=== PATIENT | female | born 1940 | race Caucasian/White ===

== ENCOUNTER 2018-06-29 15:11 | Inpatient (IN) | payer MEDICARE, SELFPAY ==
[2018-06-29] VITALS (7 sets, daily range): BP systolic 141–169; BP diastolic 79–106; PULSE 59–88; RESP 15–20; TEMP 36.5–37.2; O2SAT 92–93; BMI 28.3
--- NOTE | 2018-06-29 15:29 | RAD_ITS ---
STUDY: X-RAY CHEST REASON FOR EXAM: Female, 78 years old. Weakness TECHNIQUE: Single AP portable view of the chest. COMPARISON: None. FINDINGS: EKG leads overlie the chest There are interstitial fibrotic changes of the lungs. There is no demonstrated pleural abnormality. There is cardiomegaly. Normal mediastinum and andrew. Normal visualized pulmonary arteries. Normal visualized aortic arch and descending thoracic aorta. Normal visualized thoracic spine. Normal visualized ribs, clavicles, and shoulders. There is no demonstrated abnormality of the visualized soft tissue structures of the upper abdomen. RAD/Chest 1 View (Portable) IMPRESSION: No acute findings, cardiomegaly Electronically Signed: Miguel Mata MD at 16:07 EST , Service support ,
--- NOTE | 2018-06-29 15:29 | EKG12_ITS ---
Test Reason : WEAKNESS Blood Pressure : / mmHG Vent. Rate : 082 BPM Atrial Rate : 082 BPM P-R Int : 186 ms QRS Dur : 082 ms QT Int : 398 ms P-R-T Axes : 036 -12 024 degrees QTc Int : 464 ms Normal sinus rhythm Normal ECG Confirmed by JOSE OTTO, DWIGHT ([id number]), school photograph editor MANUEL MCALLISTER ([id number]) on 07/01/2018 8:57:20 AM Referred By: Radha Galvez Confirmed By:DWIGHT GARCIA MD
--- NOTE | 2018-06-29 15:29 | CT_ITS ---
STUDY: CT BRAIN WITHOUT CONTRAST REASON FOR EXAM: Female, 78 years old. Weakness and falls RADIATION DOSAGE (If Supplied By Facility): CTDIvol = ( 44.99 ) mGy, DLP = ( 745.49 ) mGycm TECHNIQUE: Transaxial CT imaging of the brain was performed without administration of intravenous contrast material. Individualized dose optimization techniques were used for this CT. COMPARISON: 11/29/2011 FINDINGS: Normal soft tissue structures. Normal calvarium. There is mild cerebral atrophy with widening of the extra-axial spaces and ventricular dilatation. There are areas of decreased attenuation within the white matter tracts of the supratentorial brain, consistent with microvascular disease changes. There are small punctate calcifications of the basal ganglia which are seen in the aging brain as a normal variant. Normal brainstem. Normal cerebellum. There is no intracranial hemorrhage. There are no findings of an acute ischemic infarction. Normal visualized paranasal sinuses. CT/Brain/Head without Contrast IMPRESSION: Chronic involutional changes of the brain. No acute hemorrhage Electronically Signed: Miguel Mata MD at 16:38 EST , Service support ,
[2018-06-29 15:39] LABS: Absolute Neutrophil Count 3.9 X10^3/uL (2.0-7.7); Basophil# 0.02 X10^3/uL; Basophil% 0.4 % (0-1); Eosinophil# 0.15 X10^3/uL; Eosinophils% 2.7 % (0-5); Hematocrit 38.1 % (37-47); Lymphocyte % 19.8 % (19-41); Mean Corp Hgb Conc 31.5 g/gl (32-36); Mean Corpuscular Hgb 28.4 pg (27.0-32.0); Mean Corpuscular Volume 90.1 fL (81-99); Mean Platelet Vol. 11.4 fl (6.2-12.0); Monocyte# 0.37 X10^3/uL; Monocyte% 6.7 % (0-10); Neutrophil # 3.91 X10^3/uL (2.7-7.7); Neutrophil % 70.2 % (47-70); Platelet Count 201 K/mm3 (150-450); RBC Distribution Width CV 14.7 % (11.6-14.6); RBC Distribution Width SD 48.2 fl (35.1-43.9); Red Blood Count 4.23 M/mm3 (4.2-5.4); White Blood Count 5.6 K/mm3 (4.4-11.0)
--- NOTE | 2018-06-29 15:39 | ED.DCSUM_ITS ---
- ER Visit Summary Date of Service: 06/29/18 Chief Complaint: I am falling all over the place History of Present Illness: The patient is a 78 F history of hypertension and MS. Patient states since the last 2 days she just felt off balance and has had trouble ambulating to the point where she is had some falls. She denies any significant injuries. She denies any head injury. She denies any LOC. She denies any severe headaches. States she feels dehydrated. She denies any nausea, vomiting or diarrhea. States that she is peeing more often. She denies any dysuria or gross hematuria. She denies any fever or melena. She denies any trouble using her arms and legs. Physical Examination: Well-appearing older female. No acute distress. Vital signs are stable and afebrile. Temperature 99 degrees orally. Pulse ox 90% on room air no hypoxia. HEENT exam dry mucous membranes. Otherwise unremarkable. Neck nontender no lymphadenopathy. Lungs clear to auscultation bilaterally. Heart regular rate and rhythm no murmur rate about 80. Abdomen is soft and nontender. Normal bowel sounds no peritoneal signs. Patient is moving all 4 extremities. Neurovascularly intact. Calves are nontender without edema or cords. Neurologically she is awake. She is alert. She follows commands. She answers questions. She has no slurred speech. No facial droop. 5 out of 5 motor manager packaging strength bilaterally. 5 out of 5 dorsi and plantar flexion. Fingertip to nose within normal limits. NIH score is 0. Test Results: Portable 1 view chest x-ray shows no acute abnormality read both by myself and the radiologist. EKG normal sinus rhythm rate of 80 with no acute abnormality and unchanged from prior EKG from 2012. CBC White count is 5. Hemoglobin 12. No bands. Electrolytes unremarkable normal BUN/creatinine and gap. UA is consistent with urinary tract infection with positive nitrates and 10-25 white cells with 3+ bacteria. For that a urine culture was sent and patient be started on IV Rocephin. Troponin was normal. Orthostatic vital signs were negative. Nurses attempted to walk the patient and she was unable to walk she was too weak. CAT scan of the brain is pending I reviewed it I do not see any acute obvious abnormality obviously are waiting for the radiologist interpretation. Emergency Department Course and Treatment: Older female with recent frequent falls. Other than clinically appearing somewhat dehydrated her exam is basically unremarkable lying in bed. She will be treated with a liter of normal saline. Treatment Plan: IV antibiotics and admission. I will discussed with the hospitalist. Disposition: admit Impression: Frequent falls UTI Unable to walk This note was generated with [employer] dictation software. It may contain incorrect words, spelling, and punctuation that were not noted in review of the chart prior to signing ED Disposition - Plan for ED Patient: Chief Complaint: Weakness Referrals: Maria M Sierra MD [Primary Care Provider] -
[2018-06-29 15:42] LABS: POSITIVE COUNT NO; POSITIVE DIFFERENTIAL NO; POSITIVE MORPHOLOGY NO
[2018-06-29 15:54] LABS: Mucous, Urine 0 SEEN /hpf (<or=2+); Red Blood Cells-Urine 0 SEEN /hpf (0-5); Squamous Epithelial Cells - UA 0 SEEN /hpf (5-10)
[2018-06-29 15:57] LABS: Color, Urine Yellow (Yellow); Glucose, Dipstick Normal (Normal); Ketone-Dipstick Negative (Negative); Leukocyte Esterase-Dipstick 500 /ul (Negative); Nitrite-Dipstick Positive (Negative); Occult Blood-Urine 10 /ul (Negative); Protein-Dipstick Negative (Negative); Specific Gravity, Urine 1.025 (1.002-1.030); Urine Bilirubin Dipstick Negative (Negative); Urine Clarity Sl. Cloudy (Clear); Urine Urobilinogen Normal (Normal)
[2018-06-29] MEDS: 0.9% Normal Saline 1,000 ML 1000 ML IV (16:00)
[2018-06-29 16:07] LABS: Anion Gap 9 (5-15); BUN 14 mg/dL (7-18); BUN/Creat Ratio 16.3 RATIO (10-20); Calcium,Total 8.6 mg/dL (8.5-10.1); Chloride 113 mmol/L (98-107); Creatinine, Serum 0.86 mg/dL (0.55-1.02); EST Glomerular Filtration Rate 68 mL/min (>60); Est Glom Filt Rate - Afr Amer 82 mL/min (>60); Estimated Creatinine Clearance 42.64 ml/min; Glucose 116 mg/dL (74-106); Potassium 3.6 mmol/L (3.5-5.1); Sodium Level 143 mmol/L (136-145)
[2018-06-29 16:14] LABS: White Blood Cells 10-25 SEEN /hpf (0-5)
[2018-06-29 16:15] LABS: Bacteria 3+ /hpf (None Seen)
--- NOTE | 2018-06-29 16:36 | ED.RN ---
SPOKE WITH PT DAUGHTER KADE AND GAVE HER AN UPDATE WITH APPROVAL FROM PT. [phone]
[2018-06-29] MEDS: Ceftriaxone 1 GM/50 ML BAG IV (16:39)
--- NOTE | 2018-06-29 17:30 | NURSING ---
PT HAD RN CALL SON ARMANI , THIS RN LEFT MESSAGE INSTRUCTING ARMANI TO CALL ER WHEN HE IS ABLE PER HIS MOTHER'S REQUEST.
[2018-06-29] MEDS: Aspirin 81 MG TAB.CHEW 324 MG PO (18:18)
--- NOTE | 2018-06-29 18:21 | HP.PCM_ITS ---
Problem List (1) COLLIN (obstructive sleep apnea) Status: Chronic Comment: on CPAP (2) Seizure disorder Status: Chronic (3) UTI (urinary tract infection) Status: Acute Qualifiers: Urinary tract infection type: acute cystitis (4) Ataxia Status: Acute (5) Diplopia Status: Acute (6) Chronic obstructive lung disease Status: Chronic (7) Dyslipidemia Status: Chronic (8) History of Clostridium difficile infection Status: Resolved (9) Hypertension Status: Chronic Qualifiers: Hypertension type: essential hypertension Qualified Code(s): I10 - Essential (primary) hypertension (10) Multiple sclerosis Status: Chronic Comment: has never required treatment (11) Migraines Status: Chronic History of Present Illness Date of Admission: 06/29/18 Chief Complaint: frequent falls and unsteady gait X 2 days The patient is a 78 year old F with a past medical history of hypertension, hyperlipidemia, multiple sclerosis (untreated), migraine cephalgia, COLLIN, seizure disorder and a heart MM who presented to the ED at [facility] on 06/29/2018 complaining of frequent falls due to unsteady gait over the past 48 hours associated with frequent urination. She tells me that suddenly on she could not maintain her balance and has been bumping into the ovalle and falling. Prior to she did not even use an AD. She has also had double vision since that started at the same time as the unsteady gait. She denies vertigo and has no RUFFIN, nausea or vomiting. No unilateral weakness or numbness. No trouble with speech and no trouble swallowing. She has had increased urination and denies dysuria, fever, chills, sweats. She denies any history of stroke in the past. She does have a history of seizures, migraines and MS per Dr. Silver. She has been told the MS is very mild and she has never been treated for MS. She is on Topimax. Vital signs of presentation to the emergency room were temperature 99, pulse rate 87, blood pressure 146/95, respiratory rate 20 and pulse ox was 92% on room air. Orthostatic blood pressures were negative for orthostatic hypotension. CBC was unremarkable. The sodium was 143 with a potassium of 3.6 and a chloride of 113. Serum bicarb was 21. BUN was 14 with a creatinine of 0.86. Random blood sugar was 116 and she denies any personal history of diabetes but there is an extensive history of diabetes in her family. Troponin was less than 0.016. UA showed 10-25 WBCs per high-power field with 3+ bacteria and positive nitrites. Urine specific gravity was 1.025. It was a catheterized specimen and it was sent for culture. Brain CT showed chronic involutional changes of the brain with no acute hemorrhage. AP chest showed no acute findings but the patient was markedly rotated to the right. EKG showed normal sinus rhythm with no suspicious ST or T wave changes. She was stood by Dr. Saez and he attempted to walk her after 1 liter of IV fluid but she was ataxic. She is being admitted to a monitored bed on PCU with ataxia and diplopia suspected to be due to CVA. Past Medical History Past Medical History (Chronic Problems): Chronic Problems COLLIN (obstructive sleep apnea) (Chronic) on CPAP Seizure disorder (Chronic) Migraines (Chronic) Multiple sclerosis (Chronic) has never required treatment Chronic obstructive lung disease (Chronic) Hypertension (Chronic) Dyslipidemia (Chronic) Allergies No Known Allergies Allergy (Verified 06/29/18 15:13) Home Medications: Ambulatory Orders Medication Instructions Recorded Atorvastatin Calcium [Lipitor] 40 mg PO QHS 06/29/18 Hydroxyzine HCl 25 mg PO BID PRN PRN 06/29/18 Loratadine 10 mg PO DAILY 06/29/18 Losartan Potassium 100 mg PO DAILY 06/29/18 Oxybutynin [Ditropan] 5 mg PO BID 06/29/18 Paroxetine HCl 40 mg PO DAILY 06/29/18 Topiramate [Topamax] 25 mg PO BID 06/29/18 Surgical History: noncontributory Psychiatric History: Depression Lives: Alone Smoking Status: Former smoker - she quit a few years ago. Started smoking at 12 YOA and has smoked up to 2 PPD in the past Tobacco Use: Non-smoker Alcohol: Rare Drugs: None - *Family History Maternal History Items: Diabetes, High Cholesterol, Hypertension Paternal History Items: No pertinent history Review of Systems Constitutional: Reports: Weakness. Denies: Chills, Fever, Night Sweats, Weight Change Eyes: Reports: Double vision, Vision Change - diplopia when both eyes open since HEENT: Reports: Visual Changes, - - very dry mouth. Denies: Difficulty Swallowing, Head Aches, Nasal Congestion, Sinus Congestion, Sinus Drainage, Sore Throat Cardiovascular: Denies: Chest Pain, Edema, Light Headedness, Orthopnea, Palpitations, Paroxysmal Noc. Dyspnea, Syncope Respiratory: Reports: Cough - dry. Denies: Shortness of Breath, Shortness of breath at rest, Sputum production Gastrointestinal: Denies: Abdominal Pain, Constipation, Diarrhea, Nausea, Vomiting Genitourinary: Reports: Frequency, Nocturia. Denies: Dysuria Gynecological: Denies: Breast symptoms, Vaginal bleeding, Vaginal discharge Musculoskeletal: Denies: Joint Pain, Joint Tenderness Skin: Reports: Dryness. Denies: Jaundice, Rash, Wounds Neurological: Reports: Balance problems, Double vision, Confusion, Seizures - she has a hx of seizures but has not had any for a long time. Denies: Change in Speech, Slurred speech, Difficulty swallowing, Focal weakness, Headaches, Numbness, Tingling Psychiatric: Denies: Anxiety, Depression, Homicidal Ideations, Suicidal Ideations Endocrine: Denies: Change in Body Habitus, Hx of Thyroiditis Hematologic/ Lymphatic: Denies: Easy Bruising, Easy Bleeding, Hx of blood clot VTE Information - Inpt Only VTE Present on Admission: No VTE Mechan Device Prophylaxis: SCD's, Knee High PRATIBHA Hose VTE Pharm Prophylaxis ordered?: Yes Patient Problems: Active and Suspected Problems UTI (urinary tract infection) (Acute) Ataxia (Acute) Diplopia (Acute) - Physical Exam General: Alert, Oriented x3, Cooperative, Well developed, Well nourished, - - having some trouble with short term memory and numbers per pt however, she is alert and oriented X 3 HEENT: Atraumatic, PERRLA, EOMI, Normocephalic Neck: Supple, No JVD, Negative Carotid Bruits Lungs: Clear to auscultation, No rhonchi, No wheeze, No rales, Diminished Cardiovascular: Regular rate, Regular Rhythm, Normal S1, Normal S2, Murmur - 2/6 SUDHAKAR at the second RICS, No rub noted, No Gallop Abdomen: Bowel Sounds Present, Soft, Non Tender, Non-Distended, - - No abdominal bruits Extremities: No clubbing, No cyanosis, No edema, Capillary Refill Less than 3 Seconds, Peripheral Pulses Normal - normal in the LE's however the radial pulses are diminished Skin: No rashes, No breakdown Musculoskeletal: No Tenderness to Palpation of Joints or Extremities, No Muscle Wasting Neurological: Cranial nerves II-XII grossly intact, Unsteady Gait Psych/Mental Status: Normal Affect, Appropriate Vital Signs Temp Pulse Resp BP Pulse Ox 99.0 F 73 15 169/93 H 93 06/29/18 15:13 06/29/18 17:33 06/29/18 17:33 06/29/18 17:33 06/29/18 17:33 Oxygen Delivery Method Room Air Weight: 164 lb 7.437 oz Body Mass Index (BMI) 30.0 Laboratory Tests Past 24 Hrs 06/29/18 06/29/18 06/29/18 15:20 15:20 15:50 WBC 5.6 RBC 4.23 Hgb 12.0 Hct 38.1 MCV 90.1 MCH 28.4 MCHC 31.5 L RDW 14.7 H RDW Differential 48.2 H Plt Count 201 MPV 11.4 Immature Gran % (Auto) 0.200 Neut % (Auto) 70.2 H Lymph % (Auto) 19.8 [place] % (Auto) 6.7 Eos % (Auto) 2.7 Baso % (Auto) 0.4 Absolute Neuts (auto) 3.9 Absolute Lymphs (auto) 1.10 Total Counted Not Reportable Sodium 143 Potassium 3.6 Chloride 113 H Carbon Dioxide 21.0 Anion Gap 9 BUN 14 Creatinine 0.86 Estim Creat Clear Calc 42.64 Est GFR (MDRD) Af Amer 82 Est GFR (MDRD) Non-Af 68 BUN/Creatinine Ratio 16.3 Glucose 116 H Calcium 8.6 Troponin I < 0.015 Urine Color Yellow Urine Clarity Sl. Cloudy Urine pH 5.0 Ur Specific [place] 1.025 Urine Protein Negative Urine Glucose (UA) Normal Urine Ketones Negative Urine Occult Blood 10 H Urine Nitrite Positive H Urine Bilirubin Negative Urine Urobilinogen Normal Ur Leukocyte Esterase 500 H Urine RBC 0 SEEN Urine WBC 10-25 SEEN Ur Squamous Epith Cells 0 SEEN Urine Bacteria 3+ Urine Mucus 0 SEEN Assessment/Plan All Active Problems UTI (urinary tract infection) (Acute) Ataxia (Acute) Diplopia (Acute) History of Clostridium difficile infection (Resolved) Impressions 1. sudden onset of double vision and gait instability on 06/27 - suspect ischemic CVA, could also be MS 2. UTI 3. HTN 4. HLD 5. seizure disorder 6. hx of MS - has never required tx 7. migraine cephalgia 8. COPD 9. Remote history of C. difficile infection Admit to a monitored bed on PCU Initiate Stroke protocol MRI of the head and MRA of the head and the neck. Neurology consult Antiplatelet therapy with aspirin [address], PT and OT consults Bedside swallow eval Hydrate Lipid profile in the AM EKG Echocardiogram Start Rocephin 1 g IV daily for urinary tract infection and await the results of the urine culture Recheck lab in the a.m. Code Visit Inpatient E&M: 65362 Init Hosp L3
--- NOTE | 2018-06-29 18:34 | ECHOD_ITS ---
Reason For Study: TIA/CVA Procedure This was a 2D Doppler, Color Flow transthoracic echocardiogram. The study was technically difficult. Diminished accoustic parasternal windows. Exam performed portable in patient room. Left Ventricle Normal LV size. Left ventricular systolic function is normal. The estimated ejection fraction is 65 %. Stage 1 diastolic dysfunction. No regional wall motion abnormalities noted. Atria Normal left atrium. Normal right atrium. Bubble contrast study negative for right to left interatrial shunt. Mitral Valve Normal mitral valve. Mild (1+) eccentric mitral valve insufficiency. Tricuspid Valve Normal tricuspid valve. Mild (1+) tricuspid valve insufficiency. Pulmonary artery systolic pressure is 35 mmHg. Pulmonic Valve Normal pulmonic valve. Great Vessels Mildly dilated aortic root. The pulmonary artery is normal size. Normal inferior vena cava. Pericardium/Pleural No pericardial effusion. Medication Performed a rapid injection of agitated mix of 9 cc saline and 1cc air to assess for atrial septal defect. MMode/2D Measurements & Calculations LVIDd: 4.9 cm IVSd: 0.91 cm Ao root diam: 4.0 cm LVIDs: 3.4 cm LVPWd: 0.95 cm RVDd: 3.2 cm FS: 30.8 % LAV(MOD-bp): 47.1 ml LA A4 area: 17.9 cm2 RA A4 area: 11.5 cm2 LAV(MOD-bp) Indexed: 26.8 ml/m2 LAV(MOD-sp2): 42.2 ml LAV(MOD-sp4): 49.1 ml Doppler Measurements & Calculations MV E max claudio: 82.2 cm/sec Lat Peak E' Claudio: 9.9 cm/sec Med Peak E' Claudio: 7.7 cm/sec MV A max claudio: 102.2 cm/sec E/E' lat: 8.3 E/E' med: 10.7 MV E/A: 0.80 Ao V2 max: 165.6 cm/sec AI max claudio: 465.3 cm/sec LV V1 max: 113.2 cm/sec Ao max P.0 mmHg AI max P.7 mmHg LV V1 max P.1 mmHg Ao V2 mean: 107.4 cm/sec LV V1 mean P.8 mmHg Ao mean P.2 mmHg AI dec slope: 242.5 cm/sec2 LV V1 mean: 79.1 cm/sec Ao V2 VTI: 34.5 cm AI P1/2t: 562.0 msec LV V1 VTI: 27.2 cm PA V2 max: 118.0 cm/sec TR max claudio: 278.6 cm/sec TR max P.0 mmHg Interpretation Summary Normal LV size. Left ventricular systolic function is normal. The estimated ejection fraction is 65 %. Stage 1 diastolic dysfunction. Bubble contrast study negative for right to left interatrial shunt. Mild (1+) tricuspid valve insufficiency. Ordering Physician: Gillian Galvez Referring Physician: Maria M Sierra Performed By: Meredith Burroughs, OCTAVIA, RVT
[2018-06-29 19:19] LABS: Thyroid Stim Hormone (TSH) 1.23 uIU/mL (0.358-3.74)
[2018-06-29] MEDS: 0.9% Normal Saline 1,000 ML 100 ML IV (20:00)
[2018-06-29] MEDS: Acetaminophen 325 MG Tablet 650 MG PO (20:00)
[2018-06-29] MEDS: Atorvastatin Calcium 40 MG Tablet PO (22:26)
[2018-06-29] MEDS: Topiramate 25 MG Tablet PO (22:26)
[2018-06-29] MEDS: Docusate Sodium 100 MG Capsule PO (22:26)
[2018-06-29 22:51] LABS: Bedside Glucose 104 mg/dL (70-110)
[2018-06-30] VITALS (15 sets, daily range): BP systolic 134–157; BP diastolic 75–91; PULSE 56–76; RESP 16–18; TEMP 36.2–36.9; O2SAT 93–97; BMI 28.3
[2018-06-30] MEDS: 0.9% Normal Saline 1,000 ML 100 ML IV ×2 (04:14→15:12)
[2018-06-30 06:16] LABS: Absolute Lymphocyte Count 1.33 X10^3/ul (0.83-4.51); Absolute Neutrophil Count 2.8 X10^3/uL (2.0-7.7); Basophil# 0.02 X10^3/uL; Basophil% 0.4 % (0-1); Eosinophil# 0.18 X10^3/uL; Eosinophils% 3.8 % (0-5); Hematocrit 34.6 % (37-47); Hemoglobin 10.6 g/dl (12.0-15.0); Lymphocyte # 1.33 X10^3/ul (4.0); Lymphocyte % 28.3 % (19-41); Mean Corp Hgb Conc 30.6 g/gl (32-36); Mean Corpuscular Volume 91.3 fL (81-99); Mean Platelet Vol. 11.4 fl (6.2-12.0); Monocyte# 0.38 X10^3/uL; Monocyte% 8.1 % (0-10); Neutrophil # 2.78 X10^3/uL (2.7-7.7); Neutrophil % 59.2 % (47-70); Platelet Count 185 K/mm3 (150-450); RBC Distribution Width CV 14.7 % (11.6-14.6); RBC Distribution Width SD 49.5 fl (35.1-43.9); Red Blood Count 3.79 M/mm3 (4.2-5.4); White Blood Count 4.7 K/mm3 (4.4-11.0)
[2018-06-30 06:20] LABS: POSITIVE COUNT NO; POSITIVE DIFFERENTIAL NO; POSITIVE MORPHOLOGY NO
[2018-06-30 06:31] LABS: ALB/GLOB Ratio 1.2 RATIO (0.9-2.4); AST(SGOT) 22 U/L (15-37); Alanine Aminotransfer ALT/SGPT 20 U/L (13-56); Albumin, Serum 3.2 g/dL (3.2-5.0); Alkaline Phosphatase 75 U/L (45-117); Anion Gap 9 (5-15); BUN 14 mg/dL (7-18); BUN/Creat Ratio 21.4 RATIO (10-20); Calcium,Total 7.8 mg/dL (8.5-10.1); Chloride 117 mmol/L (98-107); Cholesterol 144 mg/dL (200); Creatinine, Serum 0.65 mg/dL (0.55-1.02); EST Glomerular Filtration Rate 93 mL/min (>60); Est Glom Filt Rate - Afr Amer 113 mL/min (>60); Estimated Creatinine Clearance 36.67 ml/min; Globulin 2.7 g/dL (2.2-4.2); Glucose 111 mg/dL (74-106); High Density Lipoprotein 36 mg/dL; Magnesium 2.1 mg/dL (1.6-2.6); Phosphorus 2.8 mg/dL (2.5-4.9); Potassium 3.5 mmol/L (3.5-5.1); Protein, Total 5.9 g/dL (6.4-8.2); Sodium Level 147 mmol/L (136-145); Triglycerides 179 mg/dL; Very Low Density Lipoprotein 36 mg/dL (5-40)
[2018-06-30] MEDS: Acetaminophen 325 MG Tablet 650 MG PO ×4 (07:14→23:29)
[2018-06-30 07:16] LABS: Bedside Glucose 109 mg/dL (70-110)
--- NOTE | 2018-06-30 07:48 | NURSING ---
Called MRI at this time to try and verify if it will be done today due to increased headaches. No answer at this time.
[2018-06-30] MEDS: Ketorolac 15 MG/ML Vial IV ×2 (08:14→15:12)
[2018-06-30] MEDS: 0.9% NaCl Peripheral Flush Adult/Peds IV ×3 (08:14→15:12)
[2018-06-30] MEDS: Aspirin 81 MG TAB.CHEW PO (08:17)
--- NOTE | 2018-06-30 08:33 | NURSING ---
Called MRI at this time to try and verify if it will be done today due to increased headaches. No answer at this time.
--- NOTE | 2018-06-30 09:03 | MRI_ITS ---
STUDY: MRI BRAIN WITHOUT CONTRAST REASON FOR EXAM: Female, 78 years old. CVA TECHNIQUE: Standardized multiplanar fat and water weighted pulse sequences were obtained. COMPARISON: July 02, 2012 MRI brain report and June 29, 2018 CT brain FINDINGS: No evidence for shift of midline structures, mass effect or compression of ventricles. No acute intra or extra-axial hemorrhage. No definite evidence for restricted diffusion to suggest acute or subacute ischemic insult. The ventricular system appears unremarkable. The basal cisterns are patent. Mild age-related cerebral fine loss. Scattered and confluent foci of T2/FLAIR hyperintensity in the periventricular and subcortical white matter noted which are nonspecific in imaging appearance however likely related with moderate chronic small vessel disease and/or demyelinating process. Subtle T2/FLAIR hyperintense foci in the stomach also seen. Skull base vascular flow voids appear patent IMPRESSION: No evidence for acute or subacute ischemic insult. No evidence for intracranial mass. No evidence for acute intracranial hemorrhage or mass effect Scattered and confluent foci of T2/FLAIR hyperintensity in the periventricular and subcortical white matter noted which are nonspecific in imaging appearance however likely related with moderate chronic small vessel disease and/or demyelinating process. Electronically Signed: Dion Faith, at 12:26 EST Tel , Service support , MRI/Brain without Contrast
--- NOTE | 2018-06-30 09:43 | MRI_ITS ---
STUDY: MRA NECK WITHOUT CONTRAST REASON FOR EXAM: Female, 78 years old. CVA TECHNIQUE: Source images were obtained, MIPs were performed. The study was performed unenhanced. COMPARISON: None. FINDINGS: The origin of the great vessels are not visualized. The bilateral common carotid arteries are patent. The cervical internal carotid arteries are patent. The carotid bifurcations are not well seen due to significant patient motion artifact. Visualized vertebral arteries are patent. IMPRESSION: Significant patient motion degraded MR angiogram of the neck. Hemodynamically significant stenosis cannot be excluded. Nonetheless no definite evidence for carotid or vertebral artery occlusion seen. Electronically Signed: Dion Faith, at 12:20 EST Tel , Service support , MRI/MRA Neck without Contrast
--- NOTE | 2018-06-30 09:43 | MRI_ITS ---
STUDY: MRA OF THE HEAD WITHOUT CONTRAST REASON FOR EXAM: Female, 78 years old. CVA TECHNIQUE: 3-D [id number] (TOF) imaging was performed with MIPs. The study was performed unenhanced. COMPARISON: None. FINDINGS: Visualized segments of the petrous, cavernous and supraclinoid internal carotid artery are patent. Bilateral middle cerebral arteries are patent. Patent anterior communicating artery. The anterior cerebral arteries are patent. The vertebral arteries are not well visualized. Vertebrobasilar junction is patent. The basilar artery is patent. Posterior cerebral arteries are patent. IMPRESSION: Significantly motion degraded MR angiogram of the head however no evidence for intracranial large vessel occlusion seen. Electronically Signed: Dion Faith, at 12:17 EST Tel , Service support , MRI/MRA Head ONLY without Contrast
[2018-06-30] MEDS: Ceftriaxone 1 GM/50 ML BAG IV (09:58)
[2018-06-30] MEDS: Enoxaparin 40 MG/0.4 ML Syringe SC (10:03)
[2018-06-30] MEDS: Topiramate 25 MG Tablet PO ×2 (10:03→20:28)
[2018-06-30] MEDS: Loratadine 10 MG Tablet PO (10:04)
[2018-06-30 12:20] LABS: Bedside Glucose 120 mg/dL (70-110)
--- NOTE | 2018-06-30 12:50 | PCM.PROGNOTE ---
<eRbecca Orozco - Last Filed: 06/30/18 13:05> Patient Problems: Active and Suspected Problems UTI (urinary tract infection) (Acute) Ataxia (Acute) Diplopia (Acute) Subjective: Patient seen and examined. Drowsy this morning. Complains of generalized weakness. Complains of migraine headache. - Physical Exam General: Oriented x3, Cooperative, No apparent distress, - - Drowsy HEENT: Atraumatic, PERRLA, EOMI, Normocephalic Oral: Moist Mucosa Neck: Supple, No JVD, Negative Carotid Bruits Lungs: Clear to auscultation, Diminished Cardiovascular: Regular rate, Regular Rhythm, Normal S1, Normal S2, Murmur Abdomen: Bowel Sounds Present, Soft, Non Tender, Non-Distended Extremities: No clubbing, No cyanosis, No edema, Capillary Refill Less than 3 Seconds Skin: No rashes, No breakdown Musculoskeletal: No Tenderness to Palpation of Joints or Extremities Neurological: Cranial nerves II-XII grossly intact Psych/Mental Status: Normal Affect, Appropriate Vital Signs Temp Pulse Resp BP Pulse Ox 97.1 F L 63 16 157/91 H 94 06/30/18 10:00 06/30/18 12:03 06/30/18 10:00 06/30/18 10:00 06/30/18 10:00 Oxygen Delivery Method Room Air Weight: 154 lb 15.759 oz Body Mass Index (BMI) 28.3 Intake and Output for Last 24 Hours 06/28/18 06/29/18 06/30/18 23:59 23:59 23:59 Intake Total 625 / 625 1300 / 1300 Output Total 300 / 300 Balance 625 / 625 1000 / 1000 Laboratory Tests Past 24 Hrs 06/29/18 06/29/18 06/29/18 15:20 15:20 15:20 WBC 5.6 RBC 4.23 Hgb 12.0 Hct 38.1 MCV 90.1 MCH 28.4 MCHC 31.5 L RDW 14.7 H RDW Differential 48.2 H Plt Count 201 MPV 11.4 Immature Gran % (Auto) 0.200 Neut % (Auto) 70.2 H Lymph % (Auto) 19.8 Coal % (Auto) 6.7 Eos % (Auto) 2.7 Baso % (Auto) 0.4 Absolute Neuts (auto) 3.9 Absolute Lymphs (auto) 1.10 Total Counted Not Reportable Sodium 143 Potassium 3.6 Chloride 113 H Carbon Dioxide 21.0 Anion Gap 9 BUN 14 Creatinine 0.86 Estim Creat Clear Calc 42.64 Est GFR (MDRD) Af Amer 82 Est GFR (MDRD) Non-Af 68 BUN/Creatinine Ratio 16.3 Glucose 116 H Calcium 8.6 Phosphorus Magnesium 2.0 Total Bilirubin AST ALT Alkaline Phosphatase Troponin I < 0.015 Total Protein Albumin Globulin Albumin/Globulin Ratio Triglycerides Cholesterol LDL Cholesterol VLDL Cholesterol HDL Cholesterol TSH 1.23 Urine Color Urine Clarity Urine pH Ur Specific [place] Urine Protein Urine Glucose (UA) Urine Ketones Urine Occult Blood Urine Nitrite Urine Bilirubin Urine Urobilinogen Ur Leukocyte Esterase Urine RBC Urine WBC Ur Squamous Epith Cells Urine Bacteria Urine Mucus 06/29/18 06/29/18 06/29/18 15:50 19:20 21:38 WBC RBC Hgb Hct MCV MCH MCHC RDW RDW Differential Plt Count MPV Immature Gran % (Auto) Neut % (Auto) Lymph % (Auto) Coal % (Auto) Eos % (Auto) Baso % (Auto) Absolute Neuts (auto) Absolute Lymphs (auto) Total Counted Sodium Potassium Chloride Carbon Dioxide Anion Gap BUN Creatinine Estim Creat Clear Calc Est GFR (MDRD) Af Amer Est GFR (MDRD) Non-Af BUN/Creatinine Ratio Glucose Calcium Phosphorus Magnesium Total Bilirubin AST ALT Alkaline Phosphatase Troponin I < 0.015 < 0.015 Total Protein Albumin Globulin Albumin/Globulin Ratio Triglycerides Cholesterol LDL Cholesterol VLDL Cholesterol HDL Cholesterol TSH Urine Color Yellow Urine Clarity Sl. Cloudy Urine pH 5.0 Ur Specific [place] 1.025 Urine Protein Negative Urine Glucose (UA) Normal Urine Ketones Negative Urine Occult Blood 10 H Urine Nitrite Positive H Urine Bilirubin Negative Urine Urobilinogen Normal Ur Leukocyte Esterase 500 H Urine RBC 0 SEEN Urine WBC 10-25 SEEN Ur Squamous Epith Cells 0 SEEN Urine Bacteria 3+ Urine Mucus 0 SEEN 06/30/18 06/30/18 05:37 05:37 WBC 4.7 RBC 3.79 L Hgb 10.6 L Hct 34.6 L MCV 91.3 MCH 28.0 MCHC 30.6 L RDW 14.7 H RDW Differential 49.5 H Plt Count 185 MPV 11.4 Immature Gran % (Auto) 0.200 Neut % (Auto) 59.2 Lymph % (Auto) 28.3 Coal % (Auto) 8.1 Eos % (Auto) 3.8 Baso % (Auto) 0.4 Absolute Neuts (auto) 2.8 Absolute Lymphs (auto) 1.33 Total Counted Not Reportable Sodium 147 H Potassium 3.5 Chloride 117 H Carbon Dioxide 21.0 Anion Gap 9 BUN 14 Creatinine 0.65 Estim Creat Clear Calc 36.67 Est GFR (MDRD) Af Amer 113 Est GFR (MDRD) Non-Af 93 BUN/Creatinine Ratio 21.4 H Glucose 111 H Calcium 7.8 L Phosphorus 2.8 Magnesium 2.1 Total Bilirubin 0.30 AST 22 ALT 20 Alkaline Phosphatase 75 Troponin I Total Protein 5.9 L Albumin 3.2 Globulin 2.7 Albumin/Globulin Ratio 1.2 Triglycerides 179 Cholesterol 144 LDL Cholesterol 72 VLDL Cholesterol 36 HDL Cholesterol 36 L TSH Urine Color Urine Clarity Urine pH Ur Specific [place] Urine Protein Urine Glucose (UA) Urine Ketones Urine Occult Blood Urine Nitrite Urine Bilirubin Urine Urobilinogen Ur Leukocyte Esterase Urine RBC Urine WBC Ur Squamous Epith Cells Urine Bacteria Urine Mucus POC Glucose 06/30/18 06/30/18 06/29/18 12:13 07:09 22:25 POC Glucose 120 H 109 104 Medical Necessity - Tobacco Use Smoking Status: Unknown if ever smoked Tobacco Use: Cigarettes Assessment/Plan All Active Problems UTI (urinary tract infection) (Acute) Ataxia (Acute) Diplopia (Acute) History of Clostridium difficile infection (Resolved) 1. Generalized weakness, unstable gait, vision changes-CVA ruled out. MRI of brain with no acute or subacute infarct. No evidence of intracranial mass. Scattered and confluent foci of to T2/FLAIR hyperintensity in the periventricular and subcortical white matter noted which are nonspecific however likely related with moderate chronic small vessel disease and/or demyelinating process. MRA of neck with no definite evidence of carotid or vertebral artery occlusion. Chest x-ray unremarkable. Neurology consulted given history of MS. Weakness may be due to UTI as well. PT/OT. 2. Acute UTI-continue IV Rocephin pending culture. 3. Hyperlipidemia-continue statin. 4. Depression-continue fluoxetine regimen. 5. Hyperlipidemia-stable, continue home losartan regimen. 6. History of seizures-continue Topamax regimen. Denies recent seizure activity. 7. Overactive bladder-continue oxybutynin regimen. DVT prophylaxis- lovenox sc Discharge planning: Pending PT evaluation. Patient is having difficulty walking at home with frequent falls. This patient was seen by SHANI Sy under the supervision of Dr. Villareal. <Deya Villareal - Last Filed: 06/30/18 15:40> - Physical Exam Vital Signs Temp Pulse Resp BP Pulse Ox 97.1 F L 63 16 157/91 H 94 06/30/18 10:00 06/30/18 12:03 06/30/18 10:00 06/30/18 10:00 06/30/18 10:00 Oxygen Delivery Method Room Air Weight: 70.3 kg Body Mass Index (BMI) 28.3 Intake and Output for Last 24 Hours 06/28/18 06/29/18 06/30/18 23:59 23:59 23:59 Intake Total 625 / 625 1300 / 1300 Output Total 300 / 300 Balance 625 / 625 1000 / 1000 Microbiology Past 72 Hours 06/29/18 15:50 Urine Culture - Preliminary Urine Catheter - Catheter Presumptive E. coli Laboratory Tests Past 24 Hrs 06/29/18 06/29/18 06/29/18 15:20 15:20 15:20 WBC 5.6 RBC 4.23 Hgb 12.0 Hct 38.1 MCV 90.1 MCH 28.4 MCHC 31.5 L RDW 14.7 H RDW Differential 48.2 H Plt Count 201 MPV 11.4 Immature Gran % (Auto) 0.200 Neut % (Auto) 70.2 H Lymph % (Auto) 19.8 Coal % (Auto) 6.7 Eos % (Auto) 2.7 Baso % (Auto) 0.4 Absolute Neuts (auto) 3.9 Absolute Lymphs (auto) 1.10 Total Counted Not Reportable Sodium 143 Potassium 3.6 Chloride 113 H Carbon Dioxide 21.0 Anion Gap 9 BUN 14 Creatinine 0.86 Estim Creat Clear Calc 42.64 Est GFR (MDRD) Af Amer 82 Est GFR (MDRD) Non-Af 68 BUN/Creatinine Ratio 16.3 Glucose 116 H Calcium 8.6 Phosphorus Magnesium 2.0 Total Bilirubin AST ALT Alkaline Phosphatase Troponin I < 0.015 Total Protein Albumin Globulin Albumin/Globulin Ratio Triglycerides Cholesterol LDL Cholesterol VLDL Cholesterol HDL Cholesterol TSH 1.23 Urine Color Urine Clarity Urine pH Ur Specific [place] Urine Protein Urine Glucose (UA) Urine Ketones Urine Occult Blood Urine Nitrite Urine Bilirubin Urine Urobilinogen Ur Leukocyte Esterase Urine RBC Urine WBC Ur Squamous Epith Cells Urine Bacteria Urine Mucus 06/29/18 06/29/18 06/29/18 15:50 19:20 21:38 WBC RBC Hgb Hct MCV MCH MCHC RDW RDW Differential Plt Count MPV Immature Gran % (Auto) Neut % (Auto) Lymph % (Auto) Coal % (Auto) Eos % (Auto) Baso % (Auto) Absolute Neuts (auto) Absolute Lymphs (auto) Total Counted Sodium Potassium Chloride Carbon Dioxide Anion Gap BUN Creatinine Estim Creat Clear Calc Est GFR (MDRD) Af Amer Est GFR (MDRD) Non-Af BUN/Creatinine Ratio Glucose Calcium Phosphorus Magnesium Total Bilirubin AST ALT Alkaline Phosphatase Troponin I < 0.015 < 0.015 Total Protein Albumin Globulin Albumin/Globulin Ratio Triglycerides Cholesterol LDL Cholesterol VLDL Cholesterol HDL Cholesterol TSH Urine Color Yellow Urine Clarity Sl. Cloudy Urine pH 5.0 Ur Specific [place] 1.025 Urine Protein Negative Urine Glucose (UA) Normal Urine Ketones Negative Urine Occult Blood 10 H Urine Nitrite Positive H Urine Bilirubin Negative Urine Urobilinogen Normal Ur Leukocyte Esterase 500 H Urine RBC 0 SEEN Urine WBC 10-25 SEEN Ur Squamous Epith Cells 0 SEEN Urine Bacteria 3+ Urine Mucus 0 SEEN 06/30/18 06/30/18 05:37 05:37 WBC 4.7 RBC 3.79 L Hgb 10.6 L Hct 34.6 L MCV 91.3 MCH 28.0 MCHC 30.6 L RDW 14.7 H RDW Differential 49.5 H Plt Count 185 MPV 11.4 Immature Gran % (Auto) 0.200 Neut % (Auto) 59.2 Lymph % (Auto) 28.3 Coal % (Auto) 8.1 Eos % (Auto) 3.8 Baso % (Auto) 0.4 Absolute Neuts (auto) 2.8 Absolute Lymphs (auto) 1.33 Total Counted Not Reportable Sodium 147 H Potassium 3.5 Chloride 117 H Carbon Dioxide 21.0 Anion Gap 9 BUN 14 Creatinine 0.65 Estim Creat Clear Calc 36.67 Est GFR (MDRD) Af Amer 113 Est GFR (MDRD) Non-Af 93 BUN/Creatinine Ratio 21.4 H Glucose 111 H Calcium 7.8 L Phosphorus 2.8 Magnesium 2.1 Total Bilirubin 0.30 AST 22 ALT 20 Alkaline Phosphatase 75 Troponin I Total Protein 5.9 L Albumin 3.2 Globulin 2.7 Albumin/Globulin Ratio 1.2 Triglycerides 179 Cholesterol 144 LDL Cholesterol 72 VLDL Cholesterol 36 HDL Cholesterol 36 L TSH Urine Color Urine Clarity Urine pH Ur Specific [place] Urine Protein Urine Glucose (UA) Urine Ketones Urine Occult Blood Urine Nitrite Urine Bilirubin Urine Urobilinogen Ur Leukocyte Esterase Urine RBC Urine WBC Ur Squamous Epith Cells Urine Bacteria Urine Mucus POC Glucose 06/30/18 06/30/18 06/29/18 12:13 07:09 22:25 POC Glucose 120 H 109 104 Assessment/Plan This patient was seen in conjunction with Rebecca Orozco NP. I have independently interviewed and examined the patient and reviewed pertinent historical, laboratory, and other data. Please refer to her note for patient's presentation, findings, and recommendations. Patient was seen and examined. Complained of headache earlier on, given IV Toradol. Patient was said to be drowsy. Vitals were reviewed -stable Labs reviewed -mild hypernatremia noted Physical Exam: Patient was fast asleep. Meds reviewed ASSESSMENT: 1. Ataxia, unclear if related to MS, PT/OT evaluations are pending, neurology consulted 2. E. Coli UTI, uncomplicated 3. Hyperlipidemia 4. H/o seizures 5. Overactive bladder 6. Depression Plan: Continue with current meds including aspirin, rocephin Follow-up on neurology recommendations Follow-up on urine sensitivities Code Visit Inpatient E&M: 65305 Subs Hosp L2
[2018-06-30] MEDS: traMADol 50 MG Tablet PO (15:12)
--- NOTE | 2018-06-30 15:41 | NURSING ---
Spoke with Daughter Laurita at this time - updated on patients care and information.
[2018-06-30 16:00] LABS: Amphetamine Urine VISTA NEGATIVE (<1000 ng/mL); Barbiturate Urine VISTA NEGATIVE (< 200 ng/mL); Benzodiazepine Urine VISTA NEGATIVE (< 200 ng/mL); Cocaine Urine VISTA NEGATIVE (< 300 ng/mL); Ecstacy Urine VISTA NEGATIVE (< 500 ng/mL); Methadone Urine VISTA NEGATIVE (< 300 ng/mL); PCP Urine VISTA NEGATIVE (< 25 ng/mL); THC Urine VISTA NEGATIVE (< 50 ng/mL); Vista UDS pH Range 7
[2018-06-30] MEDS: BENZOCAINE/MENTHOL 1 LOZENGE MUCOUS MEM (16:28)
[2018-06-30 16:31] LABS: Bedside Glucose 93 mg/dL (70-110)
[2018-06-30] MEDS: Docusate Sodium 100 MG Capsule PO (20:28)
[2018-06-30] MEDS: Atorvastatin Calcium 40 MG Tablet PO (20:28)
[2018-07-01] VITALS (14 sets, daily range): BP systolic 140–169; BP diastolic 80–92; PULSE 54–98; RESP 16–18; TEMP 36.6–36.9; O2SAT 93–97
[2018-07-01] MEDS: 0.9% Normal Saline 1,000 ML 100 ML IV ×2 (01:12→11:57)
[2018-07-01] MEDS: Acetaminophen 325 MG Tablet 650 MG PO ×2 (06:04→21:50)
[2018-07-01] MEDS: Aspirin 81 MG TAB.CHEW PO (08:24)
[2018-07-01] MEDS: Ceftriaxone 1 GM/50 ML BAG IV (09:41)
[2018-07-01] MEDS: Enoxaparin 40 MG/0.4 ML Syringe SC (09:42)
[2018-07-01] MEDS: Loratadine 10 MG Tablet PO (09:43)
[2018-07-01] MEDS: Losartan Potassium 100 MG Tablet PO (09:43)
[2018-07-01] MEDS: Docusate Sodium 100 MG Capsule PO ×2 (09:43→21:50)
[2018-07-01] MEDS: Topiramate 25 MG Tablet PO ×2 (09:46→21:50)
[2018-07-01] MEDS: Ketorolac 15 MG/ML Vial IV (10:01)
--- NOTE | 2018-07-01 10:28 | PCM.CONS.GEN ---
Reason for Consult Date of Consultation: 07/01/18 Reason for Consultation: FALLS History of Present Illness: The patient is a 78 year old F presents with falls according to notes beginning several days ago, but she cant tell me when or why. she knows the date but is unable to describe the events. complains of headache. doesnt know when the headache started either, but describes a few days ago. denies new meds or recent illness. denies stress. denies lightheadedness or mechanical falls. lives alone. no witness. per admit h&p:The patient is a 78 year old F with a past medical history of hypertension, hyperlipidemia, multiple sclerosis (untreated), migraine cephalgia, COLLIN, seizure disorder and a heart MM who presented to the ED at [facility] on 06/29/2018 complaining of frequent falls due to unsteady gait over the past 48 hours associated with frequent urination. She tells me that suddenly on she could not maintain her balance and has been bumping into the ovalle and falling. Prior to she did not even use an AD. She has also had double vision since that started at the same time as the unsteady gait. She denies vertigo and has no RUFFIN, nausea or vomiting. No unilateral weakness or numbness. No trouble with speech and no trouble swallowing. She has had increased urination and denies dysuria, fever, chills, sweats. She denies any history of stroke in the past. She does have a history of seizures, migraines and MS per Dr. Silver. She has been told the MS is very mild and she has never been treated for MS. She is on Topimax. Vital signs of presentation to the emergency room were temperature 99, pulse rate 87, blood pressure 146/95, respiratory rate 20 and pulse ox was 92% on room air. Orthostatic blood pressures were negative for orthostatic hypotension. CBC was unremarkable. The sodium was 143 with a potassium of 3.6 and a chloride of 113. Serum bicarb was 21. BUN was 14 with a creatinine of 0.86. Random blood sugar was 116 and she denies any personal history of diabetes but there is an extensive history of diabetes in her family. Troponin was less than 0.016. UA showed 10-25 WBCs per high-power field with 3+ bacteria and positive nitrites. Urine specific gravity was 1.025. It was a catheterized specimen and it was sent for culture. Brain CT showed chronic involutional changes of the brain with no acute hemorrhage. AP chest showed no acute findings but the patient was markedly rotated to the right. EKG showed normal sinus rhythm with no suspicious ST or T wave changes. She was stood by Dr. Saez and he attempted to walk her after 1 liter of IV fluid but she was ataxic. She is being admitted to a monitored bed on PCU with ataxia and diplopia suspected to be due to CVA. Past Medical History Past Medical History (Chronic Problems): Chronic Problems COLLIN (obstructive sleep apnea) (Chronic) on CPAP Seizure disorder (Chronic) Migraines (Chronic) Multiple sclerosis (Chronic) has never required treatment Chronic obstructive lung disease (Chronic) Hypertension (Chronic) Dyslipidemia (Chronic) Allergies No Known Allergies Allergy (Verified 06/29/18 15:13) Home Medications: Ambulatory Orders Medication Instructions Recorded Atorvastatin Calcium [Lipitor] 40 mg PO QHS 06/29/18 Hydroxyzine HCl 25 mg PO BID PRN PRN 06/29/18 Loratadine 10 mg PO DAILY PRN 06/29/18 Losartan Potassium 100 mg PO DAILY 06/29/18 Oxybutynin [Ditropan] 10 mg PO DAILY 06/29/18 Paroxetine HCl 30 mg PO DAILY 06/29/18 Topiramate [Topamax] 50 mg PO DAILY 06/29/18 Surgical History: noncontributory Psychiatric History: Depression Lives: Alone Smoking Status: Unknown if ever smoked Tobacco Use: Cigarettes Alcohol: Rare Drugs: None - *Family History Maternal History Items: Diabetes, High Cholesterol, Hypertension Paternal History Items: No pertinent history Patient Problems: Active and Suspected Problems UTI (urinary tract infection) (Acute) Ataxia (Acute) Diplopia (Acute) - Physical Exam General: Alert, Oriented x3, Cooperative, No apparent distress HEENT: PERRLA, EOMI, Normocephalic Musculoskeletal: No Tenderness to Palpation of Joints or Extremities Neurological: Cranial nerves II-XII grossly intact, Deep Tendon Reflexes 2+/4 and Symmetrical, Neuro grossly intact, Motor Exam 5/5 strength throughout, Muscle tone normal, Sensory exam intact to light touch and pain, Coordination normal Psych/Mental Status: Normal Affect, Alert and oriented to time, place, person, mood and affect Vital Signs Temp Pulse Resp BP Pulse Ox 36.9 C 63 18 166/92 H 96 07/01/18 09:50 07/01/18 09:50 07/01/18 09:50 07/01/18 09:50 07/01/18 09:50 Oxygen Delivery Method Room Air Weight: 70.3 kg Body Mass Index (BMI) 28.3 Intake and Output for Last 24 Hours 06/29/18 06/30/18 07/01/18 23:59 23:59 23:59 Intake Total 625 / 625 3101 / 3101 621 / 621 Output Total 1700 / 1700 600 / 600 Balance 625 / 625 1401 / 1401 Microbiology Past 72 Hours 06/29/18 15:50 Urine Culture - Final Urine Catheter - Catheter Presumptive E. coli Laboratory Tests Past 24 Hrs 06/30/18 15:25 Urine Opiates Screen NEGATIVE Urine Methadone Screen NEGATIVE Ur Barbiturates Screen NEGATIVE Ur Phencyclidine Scrn NEGATIVE Ur Amphetamines Screen NEGATIVE U Methamphetamin-MDMA NEGATIVE U Benzodiazepines Scrn NEGATIVE Urine Cocaine Screen NEGATIVE U Cannabinoids Screen NEGATIVE Ur Drug Screen Comment POC Glucose 06/30/18 06/30/18 16:22 12:13 POC Glucose 93 120 H mri reviewed, no acute Assessment/Plan All Active Problems UTI (urinary tract infection) (Acute) Ataxia (Acute) Diplopia (Acute) History of Clostridium difficile infection (Resolved) neurologically intact, mri neg, exam essentially normal. no clear reason for complaints, lack of clear description of events is discoordant with the patients otherwies intact mental status. ? migraine phenomenon vs conversion. supportive rx, pt/ot recommended, home if no metabolic explanation prn sleep aide prn analgesics for headache
--- NOTE | 2018-07-01 10:36 | NURSING ---
DISCUSSED W/CHARGE NURSE PT'S CONTINUED HEADACHE AND APPARENT CONFUSION, WEAKNESS
--- NOTE | 2018-07-01 10:39 | CASEMGMT ---
Social Work: Spoke with patient in room. Patients lives alone and states will need SNF at D/C. Patient very anxious and states I am losing it and I can't make decisions on my own can you call my daughter. Patient states that her daughter lives in [place] and she has a son who lives in [place]. Patient states that it might be better to go to a SNF near son. Patient giving this SW permission to call daughter Laurita. TC to daughter Laurita . Voice message left to call this SW. LILY Barboza
--- NOTE | 2018-07-01 14:16 | CASEMGMT ---
Social Work: TC from patient's daughter, Laurita. Laurita states that her brother (patient's son) lives in [place] and they would like patient to go to a SNF there. This SW looked on [facility]'s website and provided daughter with names of facilities in network with [facility] in [place]. Patient to discuss this with brother and get back to this SW. LILY Barboza
--- NOTE | 2018-07-01 14:36 | PCM.PROGNOTE ---
<Rebecca Orozco - Last Filed: 07/01/18 14:49> Patient Problems: Active and Suspected Problems UTI (urinary tract infection) (Acute) Ataxia (Acute) Diplopia (Acute) Subjective: Patient seen and examined. Complains of continued headache. States she feels like she is losing her mind. Neurology suspects migraine phenomenon versus conversion disorder. Patient agreeable to SNF at discharge given frequent falls at home. - Physical Exam General: Alert, Oriented x3, Cooperative, No apparent distress HEENT: Atraumatic, PERRLA, EOMI, Normocephalic Oral: Moist Mucosa Neck: Supple, No JVD, Negative Carotid Bruits Lungs: Clear to auscultation, Diminished Cardiovascular: Regular rate, Regular Rhythm, Normal S1, Normal S2, Murmur Abdomen: Bowel Sounds Present, Soft, Non Tender, Non-Distended Extremities: No clubbing, No cyanosis, No edema, Capillary Refill Less than 3 Seconds Skin: No rashes, No breakdown Musculoskeletal: No Tenderness to Palpation of Joints or Extremities Neurological: Cranial nerves II-XII grossly intact, Neuro grossly intact Psych/Mental Status: Normal Affect, Appropriate Vital Signs Temp Pulse Resp BP Pulse Ox 97.8 F 98 18 140/88 H 95 07/01/18 14:08 07/01/18 14:08 07/01/18 14:08 07/01/18 14:08 07/01/18 14:08 Oxygen Delivery Method Room Air Weight: 154 lb 15.759 oz Body Mass Index (BMI) 28.3 Intake and Output for Last 24 Hours 06/29/18 06/30/18 07/01/18 23:59 23:59 23:59 Intake Total 625 / 625 3101 / 3101 1288 / 1288 Output Total 1700 / 1700 1200 / 1200 Balance 625 / 625 1401 / 1401 88 / 88 Microbiology Past 72 Hours 06/29/18 15:50 Urine Culture - Final Urine Catheter - Catheter Presumptive E. coli Laboratory Tests Past 24 Hrs 06/30/18 15:25 Urine Opiates Screen NEGATIVE Urine Methadone Screen NEGATIVE Ur Barbiturates Screen NEGATIVE Ur Phencyclidine Scrn NEGATIVE Ur Amphetamines Screen NEGATIVE U Methamphetamin-MDMA NEGATIVE U Benzodiazepines Scrn NEGATIVE Urine Cocaine Screen NEGATIVE U Cannabinoids Screen NEGATIVE Ur Drug Screen Comment POC Glucose 06/30/18 16:22 POC Glucose 93 Medical Necessity - Tobacco Use Smoking Status: Unknown if ever smoked Tobacco Use: Cigarettes Assessment/Plan All Active Problems UTI (urinary tract infection) (Acute) Ataxia (Acute) Diplopia (Acute) History of Clostridium difficile infection (Resolved) 1. Generalized weakness, unstable gait, vision changes-CVA ruled out. MRI of brain with no acute or subacute infarct. No evidence of intracranial mass. Scattered and confluent foci of to T2/FLAIR hyperintensity in the periventricular and subcortical white matter noted which are nonspecific however likely related with moderate chronic small vessel disease and/or demyelinating process. MRA of neck with no definite evidence of carotid or vertebral artery occlusion. Chest x-ray unremarkable. Neurology consulted given history of MS. Weakness may be due to UTI as well. PT/OT. Neurology suspects migraine phenomenon versus conversion disorder. 2. Acute presumptive E. coli UTI-patient received IV Rocephin pending culture. Culture showing presumptive E. coli. Transition to Keflex 500 mg 3 times daily X 5 days. 3. Intractable headache-patient reports history of headaches. Tylenol and Toradol ineffective. Patient is on Topamax for history of seizures. Dexamethasone 10 mg IV x1. Continue as needed ibuprofen and Tylenol. Avoid opioids. 4. Hyperlipidemia-continue statin. 5. Depression-continue fluoxetine regimen. 6. Hyperlipidemia-stable, continue home losartan regimen. 7. History of seizures-continue Topamax regimen. Denies recent seizure activity. 8. Overactive bladder-continue oxybutynin regimen. 9. Physical debility with frequent falls at home-SNF pending pre-CERT/ PT/OT. DVT prophylaxis- Lovenox sc Discharge planning: SNF pending pre-cert. This patient was seen by SHANI Sy under the supervision of Dr. Villareal. <Deya Villareal - Last Filed: 07/01/18 16:02> - Physical Exam Vital Signs Temp Pulse Resp BP Pulse Ox 97.8 F 71 18 155/89 H 93 07/01/18 15:02 07/01/18 15:02 07/01/18 15:02 07/01/18 15:02 07/01/18 15:02 Oxygen Delivery Method Room Air Weight: 70.3 kg Body Mass Index (BMI) 28.3 Intake and Output for Last 24 Hours 06/29/18 06/30/18 07/01/18 23:59 23:59 23:59 Intake Total 625 / 625 3101 / 3101 1288 / 1288 Output Total 1700 / 1700 1200 / 1200 Balance 625 / 625 1401 / 1401 88 / 88 Microbiology Past 72 Hours 06/29/18 15:50 Urine Culture - Final Urine Catheter - Catheter Presumptive E. coli Laboratory Tests Past 24 Hrs 06/30/18 15:25 Urine Opiates Screen NEGATIVE Urine Methadone Screen NEGATIVE Ur Barbiturates Screen NEGATIVE Ur Phencyclidine Scrn NEGATIVE Ur Amphetamines Screen NEGATIVE U Methamphetamin-MDMA NEGATIVE U Benzodiazepines Scrn NEGATIVE Urine Cocaine Screen NEGATIVE U Cannabinoids Screen NEGATIVE POC Glucose 06/30/18 16:22 POC Glucose 93 Assessment/Plan This patient was seen in conjunction with Rebecca Orozco NP. I have independently interviewed and examined the patient and reviewed pertinent historical, laboratory, and other data. Please refer to her note for patient's presentation, findings, and recommendations. Patient was seen and examined. Complained of headache, received NSAIDs with no relief. IV decadron ordered. Patient appears drowsy, not forth-coming Physical exam: General: Oriented x3, Cooperative, No apparent distress,drowsy, obese HEENT: Atraumatic, PERRLA, EOMI, Normocephalic Oral: Moist Mucosa Neck: Supple, No JVD, Negative Carotid Bruits Lungs: Clear to auscultation, Diminished Cardiovascular: Regular rate, Regular Rhythm, Normal S1, Normal S2, Murmur Abdomen: Bowel Sounds Present, Soft, Non Tender, Non-Distended Extremities: , No edema, Capillary Refill Less than 3 Seconds Neurological: Cranial nerves II-XII grossly intact Vitals were reviewed -stable Labs reviewed -mild hypernatremia noted Meds reviewed ASSESSMENT: 1. Ataxia, unclear etiology, MRI negative 2. E. Coli UTI, uncomplicated, complete 3 days of antibiotics 3. Hyperlipidemia 4. H/o seizures 5. Overactive bladder 6. Depression Plan: Continue with keflex, aim for 3 days total antibiotics Will wait on insurance precertification for discharge to SNF Code Visit Inpatient E&M: 47212 Subs Hosp L2
[2018-07-01] MEDS: Ibuprofen 600 MG Tablet PO (15:39)
--- NOTE | 2018-07-01 15:59 | CASEMGMT ---
Social Work Note CHARAN placed a call to [facility] and spoke with admissions. Admissions provided fax number [phone]. Per admissions they have female beds and are able to accept pt's insurance. CHARAN faxed referral, provided SW on unit's direct number. CHARAN placed a call to additional SNF including [facility], spoke with Dacia in admissions. Per Audra she has female beds available, in network with pt's insurance and provided fax number [phone]. CHARAN also [facility] and spoke with Ana in admissions. Per Ana she has female beds available, in network with pt's insurance and provided fax number [phone]. Plan: SNF pending acceptance and pre-cert Missy Parnell [employer], [employer] WORK[employer]
--- NOTE | 2018-07-01 16:30 | CASEMGMT ---
Social Work: Spoke with patient in room. Patient aware that a referral was faxed to a SNF near son's home. Patient agreeable to SNF placement in [place] to be closer to son, per daughter's request. Patient appeared to become less anxious once she knew her children were involved an assisting with decision making. Support provided. Will continue to follow to assist with D/C planning and support to patient. LILY Barboza
[2018-07-01 16:41] LABS: Anion Gap 10 (5-15); BUN 9 mg/dL (7-18); BUN/Creat Ratio 12.6 RATIO (10-20); Calcium,Total 8.4 mg/dL (8.5-10.1); Chloride 112 mmol/L (98-107); Creatinine, Serum 0.71 mg/dL (0.55-1.02); EST Glomerular Filtration Rate 84 mL/min (>60); Est Glom Filt Rate - Afr Amer 102 mL/min (>60); Estimated Creatinine Clearance 36.67 ml/min; Glucose 140 mg/dL (74-106); Potassium 3.5 mmol/L (3.5-5.1); Sodium Level 142 mmol/L (136-145)
[2018-07-01 21:50] LABS: Bedside Glucose 151 mg/dL (70-110)
[2018-07-01] MEDS: Cephalexin 500 MG Capsule PO (21:50)
[2018-07-01] MEDS: Atorvastatin Calcium 40 MG Tablet PO (21:50)
[2018-07-01] MEDS: BENZOCAINE/MENTHOL 1 LOZENGE MUCOUS MEM (21:51)
[2018-07-02] VITALS (12 sets, daily range): BP systolic 130–166; BP diastolic 66–98; PULSE 60–95; RESP 16–18; TEMP 36.4–36.8; O2SAT 94–99
[2018-07-02] MEDS: Ibuprofen 600 MG Tablet PO ×3 (02:30→22:09)
[2018-07-02] MEDS: BENZOCAINE/MENTHOL 1 LOZENGE MUCOUS MEM ×3 (02:31→22:10)
[2018-07-02] MEDS: Famotidine 20 MG Tablet PO ×3 (04:24→22:09)
[2018-07-02] MEDS: Mag Hydrox/Al Hydrox/Simeth 30 ML UDC PO (04:24)
--- NOTE | 2018-07-02 05:08 | EKG12_ITS ---
Test Reason : CP Blood Pressure : / mmHG Vent. Rate : 076 BPM Atrial Rate : 076 BPM P-R Int : 208 ms QRS Dur : 078 ms QT Int : 418 ms P-R-T Axes : 057 018 059 degrees QTc Int : 470 ms Sinus rhythm with marked sinus arrhythmia Possible Left atrial enlargement Borderline ECG Confirmed by JAVED OTTO, AYALA ([id number]), non linear editor TRA LOVE ([id number]) on 07/03/2018 1:58:40 PM Referred By: Gillian Galvez Confirmed By:AYALA BURT MD
[2018-07-02] MEDS: Cephalexin 500 MG Capsule PO ×2 (05:44→14:36)
[2018-07-02 06:27] LABS: Anion Gap 12 (5-15); BUN 18 mg/dL (7-18); BUN/Creat Ratio 27.6 RATIO (10-20); Calcium,Total 8.8 mg/dL (8.5-10.1); Chloride 111 mmol/L (98-107); Creatinine, Serum 0.65 mg/dL (0.55-1.02); EST Glomerular Filtration Rate 93 mL/min (>60); Est Glom Filt Rate - Afr Amer 113 mL/min (>60); Estimated Creatinine Clearance 36.67 ml/min; Glucose 157 mg/dL (74-106); Potassium 3.8 mmol/L (3.5-5.1); Sodium Level 141 mmol/L (136-145)
[2018-07-02] MEDS: Acetaminophen 325 MG Tablet 650 MG PO (08:13)
[2018-07-02] MEDS: Losartan Potassium 100 MG Tablet PO (08:18)
[2018-07-02] MEDS: Loratadine 10 MG Tablet PO (08:18)
[2018-07-02] MEDS: Docusate Sodium 100 MG Capsule PO (08:18)
[2018-07-02] MEDS: Topiramate 25 MG Tablet PO ×2 (08:19→22:09)
[2018-07-02] MEDS: Enoxaparin 40 MG/0.4 ML Syringe SC (08:19)
[2018-07-02] MEDS: Aspirin 81 MG TAB.CHEW PO (08:19)
--- NOTE | 2018-07-02 12:07 | PN_ITS ---
<Rebecca Orozco - Last Filed: 07/02/18 12:06> Patient Problems: Active and Suspected Problems UTI (urinary tract infection) (Acute) Ataxia (Acute) Diplopia (Acute) Subjective: Patient seen and examined. Headache improved. No acute events overnight. No current complaints. - Physical Exam General: Alert, Oriented x3, Cooperative HEENT: Atraumatic, PERRLA, EOMI, Normocephalic Oral: Moist Mucosa Neck: Supple, No JVD, Negative Carotid Bruits Lungs: Clear to auscultation, Diminished Cardiovascular: Regular rate, Regular Rhythm, Normal S1, Normal S2, Murmur Abdomen: Bowel Sounds Present, Soft, Non Tender, Non-Distended Extremities: No clubbing, No cyanosis, No edema, Capillary Refill Less than 3 Seconds Skin: No rashes, No breakdown Musculoskeletal: No Tenderness to Palpation of Joints or Extremities Neurological: Cranial nerves II-XII grossly intact, Neuro grossly intact Psych/Mental Status: Normal Affect, Appropriate Vital Signs Temp Pulse Resp BP Pulse Ox 97.8 F 95 16 134/84 H 96 07/02/18 08:00 07/02/18 08:00 07/02/18 08:00 07/02/18 08:00 07/02/18 08:00 Oxygen Flow Rate (L/min) 2 Oxygen Delivery Method Room Air Weight: 154 lb 15.759 oz Body Mass Index (BMI) 28.3 Intake and Output for Last 24 Hours 06/30/18 07/01/18 07/02/18 23:59 23:59 23:59 Intake Total 3101 / 3101 1621 / 1621 500 / 500 Output Total 1700 / 1700 1900 / 1900 800 / 800 Balance 1401 / 1401 -279 / -279 -300 / -300 Microbiology Past 72 Hours 06/29/18 15:50 Urine Culture - Final Urine Catheter - Catheter Presumptive E. coli Laboratory Tests Past 24 Hrs 07/01/18 07/02/18 16:15 05:45 Sodium 142 141 Potassium 3.5 3.8 Chloride 112 H 111 H Carbon Dioxide 20.0 L 18.0 L Anion Gap 10 12 BUN 9 18 Creatinine 0.71 0.65 Estim Creat Clear Calc 36.67 36.67 Est GFR (MDRD) Af Amer 102 113 Est GFR (MDRD) Non-Af 84 93 BUN/Creatinine Ratio 12.6 27.6 H Glucose 140 H 157 H Calcium 8.4 L 8.8 POC Glucose 07/01/18 21:43 POC Glucose 151 H Medical Necessity - Tobacco Use Smoking Status: Unknown if ever smoked Tobacco Use: Cigarettes Assessment/Plan All Active Problems UTI (urinary tract infection) (Acute) Ataxia (Acute) Diplopia (Acute) History of Clostridium difficile infection (Resolved) 1. Generalized weakness, unstable gait, vision changes-CVA ruled out. MRI of brain with no acute or subacute infarct. No evidence of intracranial mass. Scattered and confluent foci of to T2/FLAIR hyperintensity in the periventricular and subcortical white matter noted which are nonspecific however likely related with moderate chronic small vessel disease and/or demyelinating process. MRA of neck with no definite evidence of carotid or vertebral artery occlusion. Chest x-ray unremarkable. Neurology consulted given history of MS. Weakness may be due to UTI as well. PT/OT. Neurology suspects migraine phenomenon versus conversion disorder. 2. Acute presumptive E. coli UTI-patient received IV Rocephin pending culture. Culture showing presumptive E. coli. Transition to Keflex 500 mg 3 times daily X 5 days. 3. Intractable headache-improved. Patient reports history of headaches. Continue as needed Tylenol and ibuprofen. Patient is on Topamax for history of seizures. Dexamethasone 10 mg IV x1 yesterday with significant improvement. Mukund id opioids. 4. Hyperlipidemia-continue statin. 5. Depression-continue fluoxetine regimen. 6. Hyperlipidemia-stable, continue home losartan regimen. 7. History of seizures-continue Topamax regimen. Denies recent seizure activity. 8. Overactive bladder-continue oxybutynin regimen. 9. Physical debility with frequent falls at home-SNF pending pre-CERT/ PT/OT. DVT prophylaxis- Lovenox sc Discharge planning: SNF pending pre-cert. This patient was seen by SHANI Sy under the supervision of Dr. Villareal. <Deya Villareal - Last Filed: 07/02/18 16:00> - Physical Exam Vital Signs Temp Pulse Resp BP Pulse Ox 97.9 F 76 16 166/98 H 99 07/02/18 14:38 07/02/18 14:38 07/02/18 14:38 07/02/18 14:38 07/02/18 14:38 Oxygen Flow Rate (L/min) 2 Oxygen Delivery Method Room Air Weight: 70.3 kg Body Mass Index (BMI) 28.3 Intake and Output for Last 24 Hours 06/30/18 07/01/18 07/02/18 23:59 23:59 23:59 Intake Total 3101 / 3101 1621 / 1621 500 / 500 Output Total 1700 / 1700 1900 / 1900 800 / 800 Balance 1401 / 1401 -279 / -279 -300 / -300 Microbiology Past 72 Hours 06/29/18 15:50 Urine Culture - Final Urine Catheter - Catheter Presumptive E. coli Laboratory Tests Past 24 Hrs 07/01/18 07/02/18 16:15 05:45 Sodium 142 141 Potassium 3.5 3.8 Chloride 112 H 111 H Carbon Dioxide 20.0 L 18.0 L Anion Gap 10 12 BUN 9 18 Creatinine 0.71 0.65 Estim Creat Clear Calc 36.67 36.67 Est GFR (MDRD) Af Amer 102 113 Est GFR (MDRD) Non-Af 84 93 BUN/Creatinine Ratio 12.6 27.6 H Glucose 140 H 157 H Calcium 8.4 L 8.8 POC Glucose 07/01/18 21:43 POC Glucose 151 H Assessment/Plan This patient was seen in conjunction with Rebecca Orozco NP. I have independently interviewed and examined the patient and reviewed pertinent historical, laboratory, and other data. Please refer to her note for patient's presentation, findings, and recommendations. Patient was seen and examined. Complained of recurrent headache, received NSAIDs with no relief. IV decadron improved headache yesterday ROS is negative. Physical exam: General: Oriented x3, Cooperative, No apparent distress,obese HEENT: Atraumatic, PERRLA, EOMI, Normocephalic Oral: Moist Mucosa Neck: Supple, No JVD, Negative Carotid Bruits Lungs: Clear to auscultation, Diminished Cardiovascular: Regular rate, Regular Rhythm, Normal S1, Normal S2, Murmur Abdomen: Bowel Sounds Present, Soft, Non Tender, Non-Distended Extremities: , No edema, Capillary Refill Less than 3 Seconds Neurological: Cranial nerves II-XII grossly intact Vitals were reviewed -stable Labs reviewed -resolved Meds reviewed ASSESSMENT: 1. Intractable headache, unclear if migraine related vs psychosomatic 2. Ataxia, unclear etiology, MRI negative 3. E. Coli UTI, uncomplicated, completed 3 days of antibiotics 4. Hyperlipidemia 5. H/o seizures 6. Overactive bladder 7. Depression Plan: Continue with IV decadron and NSAIDs. Will continue wait on insurance precertification for discharge to SNF Code Visit Inpatient E&M: 14148 Subs Hosp L2
--- NOTE | 2018-07-02 13:33 | CASEMGMT ---
Social Work Phone call to [facility]. Admission coordinator states she did not receive referral from yesterday. SW obtained faxed number and refaxed referral. Will followup with [facility] for determination if they can accept pt. JONATHAN Morales
--- NOTE | 2018-07-02 14:41 | CASEMGMT ---
Social Work Return call from [facility] and they are able to accept pt. Precert with insurance will be started at this time. SW met with pt and informed of this and she is understanding. With pt permission, pt dgt notified that pt has been accepted and will need to await insurance precert. SW will follow. Plan: [facility] SNF, pending precert. JONATHAN Morales
[2018-07-02] MEDS: 0.9% NaCl Peripheral Flush Adult/Peds IV (14:51)
[2018-07-02] MEDS: Labetalol 20 MG/4 ML Vial 10 MG IV (14:52)
[2018-07-02] MEDS: Atorvastatin Calcium 40 MG Tablet PO (22:09)
[2018-07-03] VITALS (7 sets, daily range): BP systolic 132–148; BP diastolic 71–86; PULSE 56–76; RESP 16; TEMP 36.6–36.7; O2SAT 93–96
--- NOTE | 2018-07-03 09:46 | CASEMGMT ---
SW received a message from patient's daughter regarding patient's mental health. She was wondering if a Psychiatrist could see patient at [facility] before she leaves. CHARAN called [facility] liaison and he said [facility] has a Psychiatrist and a Psychologist that come to the building. He said he would put her name on the list to be seen. CHARAN called patient's daughter back and left her a voice mail letting her know [facility] does not have a Psychiatrist that comes to the building. However, CHARAN spoke with the facility and they have a Psychiatrist and Psychologist that come to the facility and they will put patient's name on the list to be seen. Joan ZARATE MSW
[2018-07-03] MEDS: Ibuprofen 600 MG Tablet PO (10:03)
[2018-07-03] MEDS: Losartan Potassium 100 MG Tablet PO (10:04)
[2018-07-03] MEDS: Famotidine 20 MG Tablet PO (10:04)
[2018-07-03] MEDS: Docusate Sodium 100 MG Capsule PO (10:04)
[2018-07-03] MEDS: Enoxaparin 40 MG/0.4 ML Syringe SC (10:04)
[2018-07-03] MEDS: Aspirin 81 MG TAB.CHEW PO (10:04)
[2018-07-03] MEDS: Loratadine 10 MG Tablet PO (10:04)
[2018-07-03] MEDS: Topiramate 25 MG Tablet PO ×2 (10:04→15:28)
--- NOTE | 2018-07-03 10:52 | PCM.PN.HOSP ---
Patient Problems: Active and Suspected Problems UTI (urinary tract infection) (Acute) Ataxia (Acute) Diplopia (Acute) Vitals/I&O's: Vital Signs Temp Pulse Resp BP Pulse Ox 98.1 F 76 16 133/75 H 93 07/03/18 09:30 07/03/18 09:30 07/03/18 09:30 07/03/18 09:30 07/03/18 09:30 Oxygen Flow Rate (L/min) 2 Oxygen Delivery Method Room Air Weight: 70.3 kg Body Mass Index (BMI) 28.3 Intake and Output for Last 24 Hours 07/01/18 07/02/18 07/03/18 23:59 23:59 23:59 Intake Total 1621 / 1621 500 / 500 0 / 0 Output Total 1900 / 1900 800 / 800 Balance -279 / -279 -300 / -300 0 / 0 Microbiology Past 72 Hours 06/29/18 15:50 Urine Catheter - Catheter Urine Culture - Final Presumptive E. coli Current Medications Acetaminophen (Tylenol) 650 mg PO Q4H PRN PRN PRN Reason: Headache/Temp>99F Last Admin: 07/02/18 08:13 Dose: 650 mg Al Hydroxide/Mg Hydroxide (Mylanta Ii) 30 ml PO Q6H PRN PRN PRN Reason: DYSPEPSIA/INDIGESTION Last Admin: 07/02/18 04:24 Dose: 30 ml Aspirin (Aspirin, Baby) 81 mg PO DAILY@0800 [facility] Last Admin: 07/03/18 10:04 Dose: 81 mg Atorvastatin Calcium (Lipitor) 40 mg PO QHS [facility] Last Admin: 07/02/18 22:09 Dose: 40 mg Bisacodyl (Dulcolax) 5 mg PO DAILY PRN PRN PRN Reason: Constipation Docusate Sodium (Colace) 100 mg PO BID [facility] Last Admin: 07/03/18 10:04 Dose: 100 mg Enoxaparin Sodium (Lovenox) 40 mg SC DAILY@1000 [facility] Last Admin: 07/03/18 10:04 Dose: 40 mg Famotidine (Pepcid) 20 mg PO BID [facility] Last Admin: 07/03/18 10:04 Dose: 20 mg Ibuprofen (Motrin) 600 mg PO Q8H PRN PRN PRN Reason: MILD PAIN (1-3/10) Last Admin: 07/03/18 10:03 Dose: 600 mg Labetalol HCl (Trandate) 10 mg IV Q4H PRN PRN PRN Reason: sys>[id number] Last Admin: 07/02/18 14:52 Dose: 10 mg Loratadine (Claritin) 10 mg PO DAILY [facility] Last Admin: 07/03/18 10:04 Dose: 10 mg Losartan Potassium (Cozaar) 100 mg PO DAILY [facility] Last Admin: 07/03/18 10:04 Dose: 100 mg Magnesium Hydroxide (Milk Of Magnesia) 30 ml PO DAILY PRN PRN Reason: Constipation Ondansetron HCl (Zofran) 4 mg IV Q6H PRN PRN PRN Reason: NAUSEA Paroxetine HCl (Paxil) 40 mg PO DAILY [facility] Last Admin: 07/03/18 10:04 Dose: 40 mg Sodium Chloride () 5 - 15 ml IV UD PRN PRN Reason: SALINE FLUSH Last Admin: 07/02/18 14:51 Dose: 10 ml Throat Lozenges (Cepacol Sore Throat Lozenge) 1 lozenge MUCOUS MEM Q2H PRN PRN PRN Reason: COUGH Last Admin: 07/02/18 22:10 Dose: 1 lozenge Topiramate (Topamax) 25 mg PO BID [facility] Last Admin: 07/03/18 10:04 Dose: 25 mg Medical Necessity - Tobacco Use Smoking Status: Unknown if ever smoked Tobacco Use: Cigarettes Assessment/Plan All Active Problems UTI (urinary tract infection) (Acute) Ataxia (Acute) Diplopia (Acute) History of Clostridium difficile infection (Resolved) 78 y/o female with hypertension, hyperlipidemia, seizure disorder, depression admitted with frequent falls and ataxia. 1. Ataxia, frequent falls, MRI of brain, MRA head and neck is negative, patient skilled for subacute care, will continue to monitor. 2. Acute E. coli UTI, completed antibiotics. 3. Intractable headache, waxing and waning, received Decadron IV x 2, will give Imitrex 6mg SC x 1, continue on Tylenol and ibuprofen. 4. Hyperlipidemia, on statin. 5. Depression, on fluoxetine. 6. Hypertension, stable, on losartan, will continue to monitor. 7. History of seizures, on Topamax. 8. Overactive bladder, on oxybutynin. 9. Debility - waiting on insurance pre-certification for discharge to SNF. 10. DVT prophylaxis- Lovenox sc Code Visit Inpatient E&M: 15640 Subs Hosp L2
--- NOTE | 2018-07-03 11:01 | PN_ITS ---
Patient Problems: Active and Suspected Problems UTI (urinary tract infection) (Acute) Ataxia (Acute) Diplopia (Acute) Vitals/I&O's: Vital Signs Temp Pulse Resp BP Pulse Ox 98.1 F 76 16 133/75 H 93 07/03/18 09:30 07/03/18 09:30 07/03/18 09:30 07/03/18 09:30 07/03/18 09:30 Oxygen Flow Rate (L/min) 2 Oxygen Delivery Method Room Air Weight: 70.3 kg Body Mass Index (BMI) 28.3 Intake and Output for Last 24 Hours 07/01/18 07/02/18 07/03/18 23:59 23:59 23:59 Intake Total 1621 / 1621 500 / 500 0 / 0 Output Total 1900 / 1900 800 / 800 Balance -279 / -279 -300 / -300 0 / 0 Microbiology Past 72 Hours 06/29/18 15:50 Urine Catheter - Catheter Urine Culture - Final Presumptive E. coli Current Medications Acetaminophen (Tylenol) 650 mg PO Q4H PRN PRN PRN Reason: Headache/Temp>99F Last Admin: 07/02/18 08:13 Dose: 650 mg Al Hydroxide/Mg Hydroxide (Mylanta Ii) 30 ml PO Q6H PRN PRN PRN Reason: DYSPEPSIA/INDIGESTION Last Admin: 07/02/18 04:24 Dose: 30 ml Aspirin (Aspirin, Baby) 81 mg PO DAILY@0800 [facility] Last Admin: 07/03/18 10:04 Dose: 81 mg Atorvastatin Calcium (Lipitor) 40 mg PO QHS [facility] Last Admin: 07/02/18 22:09 Dose: 40 mg Bisacodyl (Dulcolax) 5 mg PO DAILY PRN PRN PRN Reason: Constipation Docusate Sodium (Colace) 100 mg PO BID [facility] Last Admin: 07/03/18 10:04 Dose: 100 mg Enoxaparin Sodium (Lovenox) 40 mg SC DAILY@1000 [facility] Last Admin: 07/03/18 10:04 Dose: 40 mg Famotidine (Pepcid) 20 mg PO BID [facility] Last Admin: 07/03/18 10:04 Dose: 20 mg Ibuprofen (Motrin) 600 mg PO Q8H PRN PRN PRN Reason: MILD PAIN (1-3/10) Last Admin: 07/03/18 10:03 Dose: 600 mg Labetalol HCl (Trandate) 10 mg IV Q4H PRN PRN PRN Reason: sys>[id number] Last Admin: 07/02/18 14:52 Dose: 10 mg Loratadine (Claritin) 10 mg PO DAILY [facility] Last Admin: 07/03/18 10:04 Dose: 10 mg Losartan Potassium (Cozaar) 100 mg PO DAILY [facility] Last Admin: 07/03/18 10:04 Dose: 100 mg Magnesium Hydroxide (Milk Of Magnesia) 30 ml PO DAILY PRN PRN Reason: Constipation Ondansetron HCl (Zofran) 4 mg IV Q6H PRN PRN PRN Reason: NAUSEA Paroxetine HCl (Paxil) 40 mg PO DAILY [facility] Last Admin: 07/03/18 10:04 Dose: 40 mg Sodium Chloride () 5 - 15 ml IV UD PRN PRN Reason: SALINE FLUSH Last Admin: 07/02/18 14:51 Dose: 10 ml Throat Lozenges (Cepacol Sore Throat Lozenge) 1 lozenge MUCOUS MEM Q2H PRN PRN PRN Reason: COUGH Last Admin: 07/02/18 22:10 Dose: 1 lozenge Topiramate (Topamax) 25 mg PO BID [facility] Last Admin: 07/03/18 10:04 Dose: 25 mg Medical Necessity - Tobacco Use Smoking Status: Unknown if ever smoked Tobacco Use: Cigarettes Assessment/Plan All Active Problems UTI (urinary tract infection) (Acute) Ataxia (Acute) Diplopia (Acute) History of Clostridium difficile infection (Resolved) 78 y/o female with hypertension, hyperlipidemia, seizure disorder, depression admitted with frequent falls and ataxia. 1. Ataxia, frequent falls, MRI of brain, MRA head and neck is negative, patient skilled for subacute care, will continue to monitor. 2. Acute E. coli UTI, completed antibiotics. 3. Intractable headache, waxing and waning, received Decadron IV x 2, will give Imitrex 6mg SC x 1, continue on Tylenol and ibuprofen. 4. Hyperlipidemia, on statin. 5. Depression, on fluoxetine. 6. Hypertension, stable, on losartan, will continue to monitor. 7. History of seizures, on Topamax. 8. Overactive bladder, on oxybutynin. 9. Debility - waiting on insurance pre-certification for discharge to SNF. 10. DVT prophylaxis- Lovenox sc Code Visit Inpatient E&M: 80695 Subs Hosp L2
[2018-07-03] MEDS: SUMAtriptan 6 MG/0.5 ML Vial SC (11:14)
--- NOTE | 2018-07-03 14:05 | PCM.TXEXTCAR ---
- Diet 06/29/18 19:01 Diet: Cardiac/Low Cholesterol, calorie controlled Is pt able to select menu?: Yes - Routine Orders/Code Status Routine Lab Work: CBC - within 3 days, BMP - within 3 days Code Status: Full Code - Therapies Weight Bearing: Weight bearing as tolerated Physical Therapy: Eval and Treat Occupational Therapy: Eval and Treat - Allergies/Procedures Done in Hospital Allergies/Adverse Reactions: Allergies No Known Allergies Allergy (Verified 06/29/18 15:13) - Type of Care/Length of Stay Estimated LOS: Convalescent Care Less Than 30 days Type of Care Needed: Skilled Rehab Potential: Good Prognosis: Good - Additional Orders/Day of Discharge Day of Discharge: 07/03/18 - Dietary and Speech Recommendations Dietitian Recommendations/Changes: Rec diet change to cardiac/low cholesterol/low sodium diet. - Follow Up Care Primary Care Physician: Maria M Sierra MD [Primary Care Provider] - Please follow up with your Primary Care Physician in: within 2 weeks of discharge from subacute care
--- NOTE | 2018-07-03 14:07 | DS.PCM_ITS ---
Discharge Date and Diagnosis Date of Admission: 06/29/18 Date of Discharge: 07/03/18 - Primary Discharge Diagnosis Active and Suspected Problems UTI (urinary tract infection) (Acute) Ataxia (Acute) Diplopia (Acute) - Secondary Discharge Diagnosis Chronic Problems COLLIN (obstructive sleep apnea) (Chronic) on CPAP Seizure disorder (Chronic) Migraines (Chronic) Multiple sclerosis (Chronic) has never required treatment Chronic obstructive lung disease (Chronic) Hypertension (Chronic) Dyslipidemia (Chronic) Hospital Course and Treatment Imaging Results: Clinical Impression(s) from Imaging Studies Brain CT 06/29/18 15:29 IMPRESSION: Chronic involutional changes of the brain. No acute hemorrhage Electronically Signed: Miguel Mata MD at 16:38 EST , Service support , Chest X-Ray 06/29/18 15:29 IMPRESSION: No acute findings, cardiomegaly Electronically Signed: Miguel Mata MD at 16:07 EST , Service support , Brain MRI 06/30/18 09:03 Head MRA 06/30/18 09:43 Neck MRA 06/30/18 09:43 Neurology Operations: None Procedures: None Summary of Care Provided: 78 y/o female with hypertension, hyperlipidemia, seizure disorder, depression admitted with frequent falls and ataxia. Neurology was consulted. Recommended symptomatic treatment. MRI of brain, MRA head and neck is negative. Patient had complains of intractable headaches, relieved with Decadron x 2 and Imitrex. Patient was on Topamax, which was increased at discharge to 50mg po bid. She was skilled for subacute care. The rest of her chronic medications were continued. Subjective: Patient was seen and examined. Denies any new complains. Denies chest pain, dizziness, palpitations. ROS is negative. Objective: Physical Exam General: Alert, Oriented x3, Cooperative HEENT: Atraumatic, PERRLA, EOMI, Normocephalic Oral: Moist Mucosa Neck: Supple, No JVD, Negative Carotid Bruits Lungs: Clear to auscultation, Diminished Cardiovascular: Regular rate, Regular Rhythm, Normal S1, Normal S2, Murmur Abdomen: Bowel Sounds Present, Soft, Non Tender, Non-Distended Extremities: No clubbing, No cyanosis, No edema, Capillary Refill Less than 3 Seconds Skin: No rashes, No breakdown Musculoskeletal: No Tenderness to Palpation of Joints or Extremities Neurological: Cranial nerves II-XII grossly intact, Neuro grossly intact Psych/Mental Status: Normal Affect, Appropriate - Physical Exam Vital Signs Temp Pulse Resp BP Pulse Ox 98.1 F 69 16 133/75 H 93 07/03/18 09:30 07/03/18 12:00 07/03/18 09:30 07/03/18 09:30 07/03/18 09:30 Oxygen Flow Rate (L/min) 2 Oxygen Delivery Method Room Air Weight: 70.3 kg Body Mass Index (BMI) 28.3 Intake and Output for Last 24 Hours 07/01/18 07/02/18 07/03/18 23:59 23:59 23:59 Intake Total 1621 / 1621 500 / 500 200 / 200 Output Total 1900 / 1900 800 / 800 200 / 200 Balance -279 / -279 -300 / -300 0 / 0 Microbiology Past 72 Hours 06/29/18 15:50 Urine Culture - Final Urine Catheter - Catheter Presumptive E. coli Discharge Diet: Low fat/ Low Cholesterol, 2000 mg Sodium Diet Discharge Activity: Return to Normal Activity Home Medications: Medications to take at Discharge Atorvastatin Calcium [Lipitor] 40 mg PO QHS 06/29/18 Loratadine 10 mg PO DAILY PRN 06/29/18 Losartan Potassium 100 mg PO DAILY 06/29/18 Oxybutynin [Ditropan] 10 mg PO DAILY 06/29/18 Paroxetine HCl 30 mg PO DAILY 06/29/18 Acetaminophen [Tylenol Tablet] 650 mg PO Q4H PRN PRN tablet 07/03/18 Aspirin [Aspirin, Baby] 81 mg PO DAILY@0800 tab.chew 07/03/18 Docusate Sodium [Colace] 100 mg PO BID PRN #30 capsule 07/03/18 Ibuprofen [Motrin] 600 mg PO Q8H PRN PRN #30 tablet 07/03/18 Topiramate [Topamax] 50 mg PO BID #60 tablet 07/03/18 Following Prescrptions Were Given to Patient: Topiramate [Topamax] 50 mg PO BID #60 tablet Primary Care Physician: Maria M Sierra MD [Primary Care Provider] - Please follow up with your Primary Care Physician in: within 2 weeks of discharge from subacute care Disposition: Nursing Home facility Minutes spent on discharge:: 45 Patient Condition:: Stable Medical Necessity - Tobacco Use Smoking Status: Unknown if ever smoked Tobacco Use: Cigarettes Meaningful Use Info Meaningful Use Diagnoses (Choose all that apply): None applicable Code Visit Inpatient E&M: 78077 Disch Hosp
[2018-07-03] MEDS: Acetaminophen 325 MG Tablet 650 MG PO (14:12)
--- NOTE | 2018-07-03 14:21 | CASEMGMT ---
CHARAN received a call from [facility] liaison with [employer] and they received insurance authorization. CHARAN notified physician. SW called patient's daughter and left her a vm letting her know. CHARAN also called patient's son who is the one that will be transporting patient and left him a voice mail. Await orders. Joan MORILLO
--- NOTE | 2018-07-03 15:08 | CASEMGMT ---
CHARAN faxed orders to [place] liaison, Dionte. Dionte asked if orders needed to indicate need for Psychiatrist or Psychologist. He said they did not and he let the building know this information and to put her on the list to be seen. CHARAN received a call from patient's son. He said he would be here around 5p. Patient had been asking if she could stop by her home first. He said he is not sure he feels comfortable with this. CHARAN told him CHARAN did not tell her this could be done. CHARAN called Dionte and Maritza letting both of them know patient will be picked up at 5p. Plan: d/c to [place] under skilled level of care. Convalescent completed on . Patient's son transported patient via private vehicle. Joan ZARATE MSW
--- NOTE | 2018-07-03 15:20 | NURSING ---
report called to [place] at [place]. they are aware son is to pick her up around 1700
--- OUTSIDE RECORDS SUMMARY | 2018-09-02 10:30 | XMS RPT_ITS ---
:1940 Author Organization [facility] Care Team Providers Name Role Phone TALAMPAS, DELTA D Referring Unavailable TALAMPAS, DELTA D Attending Unavailable TALAMPAS, DELTA D Referring Unavailable TALAMPAS, DELTA D Referring Unavailable TALAMPAS, DELTA D Referring Unavailable TALAMPAS, DELTA D Attending Unavailable TALAMPAS, DELTA D Referring Unavailable TALAMPAS, DELTA D Referring Unavailable Talampas, Delta Primary Care Unavailable Sementi, Gillian Admitting Unavailable Sementi, Gillian Referring Unavailable Jimena, Aniket S. Consulting Unavailable Paintsil, Herriman Attending Unavailable Sementi, Gillian Admitting Unavailable Sementi, Gillian Attending Unavailable Sementi, Gillian Referring Unavailable Talampas, Delta Primary Care Unavailable Jimena, Aniket S. Consulting Unavailable Sementi, Gillian Consulting Unavailable Sementi, Gillian Admitting Unavailable Rebecca Orozco SHELLFISH MANAGER-C Attending Unavailable Sementi, Gillian Referring Unavailable Talampas, Delta Primary Care Unavailable Jimena, Aniket S. Consulting Unavailable Paintsil, Herriman Consulting Unavailable Sementi, Gillian Admitting Unavailable Rebecca Orozco SHELLFISH MANAGER-C Attending Unavailable Sementi, Gillian Referring Unavailable Talampas, Delta Primary Care Unavailable Jimena, Aniket S. Consulting Unavailable Paintsil, Herriman Consulting Unavailable Sementi, Gillian Admitting Unavailable Rebecca Orozco, SHELLFISH MANAGER-C Attending Unavailable Sementi, Gillian Referring Unavailable Talampas, Delta Primary Care Unavailable Jimena, Aniket S. Consulting Unavailable Paintsil, Herriman Consulting Unavailable Sementi, Gillian Admitting Unavailable Paintsil, Herriman Attending Unavailable Sementi, Gillian Referring Unavailable Talampas, Delta Primary Care Unavailable Jimena, Aniket S. Consulting Unavailable Paintsil, Herriman Consulting Unavailable PROBLEMS PROBLEMS DATE TYPE CONDITION / CODE ATTENDING STATUS SOURCE 03/14/2016 Active Impaired fasting NA Active [facility] glucose / [facility] [place] R73.01(ICD-10) Repository 03/29/2018 Active Essential (primary) NA Active [facility] hypertension / [facility] [place] I10(ICD-10) Repository 03/29/2018 Active Other fatigue / NA Active [facility] R53.83(ICD-10) [facility] [place] Repository 03/29/2018 Active Frequency of NA Active [facility] micturition / [facility] [place] R35.0(ICD-10) Repository 03/29/2018 Active Hypercalcemia / NA Active [facility] E83.52(ICD-10) [facility] [place] Repository 10/23/2017 Active Encounter for NA Active [facility] screening mammogram [facility] [place] for malignant Repository neoplasm of breast / Z12.31(ICD-10) 09/28/2017 Active Other watermelon inspector NA Active [facility] (current) drug [facility] [place] therapy / Repository Z79.899(ICD-10) 08/28/2017 Active Other polyuria / NA Active [facility] R35.8(ICD-10) [facility] [place] Repository 08/28/2017 Active Dysuria / NA Active [facility] R30.0(ICD-10) [facility] [place] Repository PROCEDURES PROCEDURES No Procedure Records FoundRESULTS RESULTS DISCHARGE SUMMARY Observed: 07/04/2018 Status: F Source: [facility] 4:54 PM [facility] [place] [facility] Medical Records Department [address] [place] [address] Discharge Summary 07/03/18 1407 MR#: [id number] Acct: [id number] Name: INA VARMA Rep #: [id number] : 1940 78 From: Deya Villareal MD PCP: Delta Sierra MD Status: DIS IN Y Location: [place] [address] Discharge Date and Diagnosis Date of Admission: 06/29/18 Date of Discharge: 07/03/18 - Primary Discharge Diagnosis Active and Suspected Problems UTI (urinary tract infection) (Acute) Ataxia (Acute) Diplopia (Acute) - Secondary Discharge Diagnosis Chronic Problems COLLIN (obstructive sleep apnea) (Chronic) on CPAP Seizure disorder (Chronic) Migraines (Chronic) Multiple sclerosis (Chronic) has never required treatment Chronic obstructive lung disease (Chronic) Hypertension (Chronic) Dyslipidemia (Chronic) Hospital Course and Treatment Imaging Results: Clinical Impression(s) from Imaging Studies Brain CT 06/29/18 15:29 IMPRESSION: Chronic involutional changes of the brain. No acute hemorrhage Electronically Signed: Miguel Mata MD at 16:38 EST , Service support , Chest X-Ray 06/29/18 15:29 IMPRESSION: No acute findings, cardiomegaly Electronically Signed: Miguel Mata MD at 16:07 EST , Service support , Brain MRI 06/30/18 09:03 Head MRA 06/30/18 09:43 Neck MRA 06/30/18 09:43 Neurology Operations: None Procedures: None Summary of Care Provided: 78 y/o female with hypertension, hyperlipidemia, seizure disorder, depression admitted with frequent falls and ataxia. Neurology was consulted. Recommended symptomatic treatment. MRI of brain, MRA head and neck is negative. Patient had complains of intractable headaches, relieved with Decadron x 2 and Imitrex. Patient was on Topamax, which was increased at discharge to 50mg po bid. She was skilled for subacute care. The rest of her chronic medications were continued. Subjective: Patient was seen and examined. Denies any new complains. Denies chest pain, dizziness, palpitations. ROS is negative. Objective: Physical Exam General: Alert, Oriented x3, Cooperative HEENT: Atraumatic, PERRLA, EOMI, Normocephalic Oral: Moist Mucosa Neck: Supple, No JVD, Negative Carotid Bruits Lungs: Clear to auscultation, Diminished Cardiovascular: Regular rate, Regular Rhythm, Normal S1, Normal S2, Murmur Abdomen: Bowel Sounds Present, Soft, Non Tender, Non-Distended Extremities: No clubbing, No cyanosis, No edema, Capillary Refill Less than 3 Seconds Skin: No rashes, No breakdown Musculoskeletal: No Tenderness to Palpation of Joints or Extremities Neurological: Cranial nerves II-XII grossly intact, Neuro grossly intact Psych/Mental Status: Normal Affect, Appropriate - Physical Exam Vital Signs Temp Pulse Resp BP Pulse Ox 98.1 F 69 16 133/75 H 93 07/03/18 09:30 07/03/18 12:00 07/03/18 09:30 07/03/18 09:30 07/03/18 09:30 Oxygen Flow Rate (L/min) 2 Oxygen Delivery Method Room Air Weight: 70.3 kg Body Mass Index (BMI) 28.3 Intake and Output for Last 24 Hours Intake Total 1621 / 1621 500 / 500 200 / 200 Output Total 1900 / 1900 800 / 800 200 / 200 Balance -279 / -279 -300 / -300 0 / 0 Microbiology Past 72 Hours 06/29/18 15:50 Urine Culture - Final Urine Catheter - Catheter Presumptive E. coli Discharge Diet: Low fat/ Low Cholesterol, 2000 mg Sodium Diet Discharge Activity: Return to Normal Activity Home Medications: Medications to take at Discharge Atorvastatin Calcium [Lipitor] 40 mg PO QHS 06/29/18 Loratadine 10 mg PO DAILY PRN 06/29/18 Losartan Potassium 100 mg PO DAILY 06/29/18 Oxybutynin [Ditropan] 10 mg PO DAILY 06/29/18 Paroxetine HCl 30 mg PO DAILY 06/29/18 Acetaminophen [Tylenol Tablet] 650 mg PO Q4H PRN PRN tablet 07/03/18 Aspirin [Aspirin, Baby] 81 mg PO DAILY@0800 tab.chew 07/03/18 Docusate Sodium [Colace] 100 mg PO BID PRN #30 capsule 07/03/18 Ibuprofen [Motrin] 600 mg PO Q8H PRN PRN #30 tablet 07/03/18 Topiramate [Topamax] 50 mg PO BID #60 tablet 07/03/18 Following Prescrptions Were Given to Patient: Topiramate [Topamax] 50 mg PO BID #60 tablet Primary Care Physician: Delta Sierra MD [Primary Care Provider] - Please follow up with your Primary Care Physician in: within 2 weeks of discharge from subacute care Disposition: Alf facility Minutes spent on discharge:: 45 Patient Condition:: Stable Medical Necessity - Tobacco Use Smoking Status: Unknown if ever smoked Tobacco Use: Cigarettes Meaningful Use Info Meaningful Use Diagnoses (Choose all that apply): None applicable Code Visit Inpatient E AND M: 50829 Disch Hosp 07/04/18 1654 <Electronically signed by Deya Villareal MD> Date Deya Villareal MD Cosigner Signature (if applicable): Date CC: Deya Villareal MD; Delta Sierra MD Signed TRANSFER TO EXTENDED Observed: 07/03/2018 Status: F Source: [facility] 2:07 PM [facility] [place] [facility] Medical Records Department [address] [place] [id number] Transfer to [facility] Care MR#: [id number] Acct: [id number] Name: INA VARMA Rep #: [id number] : 1940 78 From: Deya Villareal MD PCP: Delta Sierra MD Status: ADM IN JOBYINA Roland (Patient) (Health Ins. Claim No.) (Day of Discharge to Facility) Certification of patient admission REQUIRED AT TIME OF ADMISSION. I CERTIFY THAT POST-HOSPITAL ECF SERVICES ARE REQUIRED TO BE GIVEN ON AN IN-PATIENT BASIS BECAUSE OF THE ABOVE NAMED PATIENT'S NEED FOR HALF-WAY CARE ON A CONTINUING BASIS FOR THE CONDITION(S) FOR WHICH HE/SHE WAS RECEIVING IN-PATIENT HOSPITAL SERVICES PRIOR TO HIS/HER TRANSFER TO THE [facility]. 07/03/181406 <Electronically signed by Deya Villareal MD> Date Deya Villareal MD - Diet 06/29/18 19:01 Diet: Cardiac/Low Cholesterol, calorie controlled Is pt able to select menu?: Yes - Routine Orders/Code Status Routine Lab Work: CBC - within 3 days, BMP - within 3 days Code Status: Full Code - Therapies Weight Bearing: Weight bearing as tolerated Physical Therapy: Eval and Treat Occupational Therapy: Eval and Treat - Allergies/Procedures Done in Hospital Allergies/Adverse Reactions: Allergies No Known Allergies Allergy (Verified 06/29/18 15:13) - Type of Care/Length of Stay Estimated LOS: Convalescent Care Less Than 30 days Type of Care Needed: Skilled Rehab Potential: Good Prognosis: Good - Additional Orders/Day of Discharge Day of Discharge: 07/03/18 - Dietary and Speech Recommendations Dietitian Recommendations/Changes: Rec diet change to cardiac/low cholesterol/low sodium diet. - Follow Up Care Primary Care Physician: Delta Sierra MD [Primary Care Provider] - Please follow up with your Primary Care Physician in: within 2 weeks of discharge from subacute care 07/03/181406 <Electronically signed by Deya Villareal MD> Date Deya Villareal MD CC: Melissa Hess MD; Delta Sierra MD Signed 12 LEAD ELECTROCARDIOGRAM Observed: 07/03/2018 Status: F Source: [place] 1:59 PM [facility] [place] [facility] Cardiovascular Services [address] [place] [address] 12 Lead EKG 07/02/18 0407 MR#: [id number] Acct: [id number] Name: INA VARMA #: [id number] : 1940 78 From: Jorge Burt MD Attending Dr: Deya Villareal MD Status: ADM IN Ordering Dr: Maira Uriarte Date: 07/02/18 Location: [facility] Sex: F C Admitted: 06/29/18 Test Reason : CP Blood Pressure : / mmHG Vent. Rate : 076 BPM Atrial Rate : 076 BPM P-R Int : 208 ms QRS Dur : 078 ms QT Int : 418 ms P-R-T Axes : 057 018 059 degrees QTc Int : 470 ms Sinus rhythm with marked sinus arrhythmia Possible Left atrial enlargement Borderline ECG Confirmed by JAVED OTTO, JORGE ([id number]), business editor TRA LOVE ([id number]) on 07/03/2018 1:58:40 PM Referred By: Gillian Galvez Confirmed By:JORGE BURT MD 07/03/18 1358 Date Jorge Burt MD CC: Deya Villareal MD; Maira Uriarte; Gillian Galvez; Delta Sierra MD Signed CONSULTATION Observed: 07/03/2018 Status: F Source: ONSTED 9:56 [facility] [place] [facility] Medical Records Department [address] [place] [address] Consultation 07/01/18 1028 MR#: [id number] Acct: [id number] Name: INA VARMA Rep #: [id number] : 1940 78 From: Beau Silver MD PCP: Delta Sierra MD Status: ADM IN Y Location: [place] [address] Reason for Consult Date of Consultation: 07/01/18 Reason for Consultation: FALLS History of Present Illness: The patient is a 78 year old F presents with falls according to notes beginning several days ago, but she cant tell me when or why. she knows the date but is unable to describe the events. complains of headache. doesnt know when the headache started either, but describes a few days ago. denies new meds or recent illness. denies stress. denies lightheadedness or mechanical falls. lives alone. no witness. per admit h AND p:The patient is a 78 year old F with a past medical history of hypertension, hyperlipidemia, multiple sclerosis (untreated), migraine cephalgia, COLLIN, seizure disorder and a heart MM who presented to the ED at [facility] on 06/29/2018 complaining of frequent falls due to unsteady gait over the past 48 hours associated with frequent urination. She tells me that suddenly on she could not maintain her balance and has been bumping into the ovalle and falling. Prior to she did not even use an AD. She has also had double vision since that started at the same time as the unsteady gait. She denies vertigo and has no RUFFIN, nausea or vomiting. No unilateral weakness or numbness. No trouble with speech and no trouble swallowing. She has had increased urination and denies dysuria, fever, chills, sweats. She denies any history of stroke in the past. She does have a history of seizures, migraines and MS per Dr. Silver. She has been told the MS is very mild and she has never been treated for MS. She is on Topimax. Vital signs of presentation to the emergency room were temperature 99, pulse rate 87, blood pressure 146/95, respiratory rate 20 and pulse ox was 92% on room air. Orthostatic blood pressures were negative for orthostatic hypotension. CBC was unremarkable. The sodium was 143 with a potassium of 3.6 and a chloride of 113. Serum bicarb was 21. BUN was 14 with a creatinine of 0.86. Random blood sugar was 116 and she denies any personal history of diabetes but there is an extensive history of diabetes in her family. Troponin was less than 0.016. UA showed 10-25 WBCs per high-power field with 3+ bacteria and positive nitrites. Urine specific gravity was 1.025. It was a catheterized specimen and it was sent for culture. Brain CT showed chronic involutional changes of the brain with no acute hemorrhage. AP chest showed no acute findings but the patient was markedly rotated to the right. EKG showed normal sinus rhythm with no suspicious ST or T wave changes. She was stood by Dr. Saez and he attempted to walk her after 1 liter of IV fluid but she was ataxic. She is being admitted to a monitored bed on PCU with ataxia and diplopia suspected to be due to CVA. Past Medical History Past Medical History (Chronic Problems): Chronic Problems COLLIN (obstructive sleep apnea) (Chronic) on CPAP Seizure disorder (Chronic) Migraines (Chronic) Multiple sclerosis (Chronic) has never required treatment Chronic obstructive lung disease (Chronic) Hypertension (Chronic) Dyslipidemia (Chronic) Allergies No Known Allergies Allergy (Verified 06/29/18 15:13) Home Medications: Ambulatory Orders Medication Instructions Recorded Atorvastatin Calcium [Lipitor] 40 mg PO QHS 06/29/18 Hydroxyzine HCl 25 mg PO BID PRN PRN 06/29/18 Loratadine 10 mg PO DAILY PRN 06/29/18 Surgical History: noncontributory Psychiatric History: Depression Lives: Alone Smoking Status: Unknown if ever smoked Tobacco Use: Cigarettes Alcohol: Rare Drugs: None - *Family History Maternal History Items: Diabetes, High Cholesterol, Hypertension Paternal History Items: No pertinent history Patient Problems: Active and Suspected Problems UTI (urinary tract infection) (Acute) Ataxia (Acute) Diplopia (Acute) - Physical Exam General: Alert, Oriented x3, Cooperative, No apparent distress HEENT: PERRLA, EOMI, Normocephalic Musculoskeletal: No Tenderness to Palpation of Joints or Extremities Neurological: Cranial nerves II-XII grossly intact, Deep Tendon Reflexes 2+/4 and Symmetrical, Neuro grossly intact, Motor Exam 5/5 strength throughout, Muscle tone normal, Sensory exam intact to light touch and pain, Coordination normal Psych/Mental Status: Normal Affect, Alert and oriented to time, place, person, mood and affect Vital Signs Temp Pulse Resp BP Pulse Ox 36.9 C 63 18 166/92 H 96 07/01/18 09:50 07/01/18 09:50 07/01/18 09:50 07/01/18 09:50 07/01/18 09:50 Oxygen Delivery Method Room Air Weight: 70.3 kg Body Mass Index (BMI) 28.3 Intake and Output for Last 24 Hours Intake Total 625 / 625 3101 / 3101 621 / 621 Output Total 1700 / 1700 600 / 600 Balance 625 / 625 1401 / 1401 Microbiology Past 72 Hours 06/29/18 15:50 Urine Culture - Final Urine Catheter - Catheter Presumptive E. coli Laboratory Tests Past 24 Hrs Urine Opiates Screen NEGATIVE Urine Methadone Screen NEGATIVE Ur Barbiturates Screen NEGATIVE Ur Phencyclidine Scrn NEGATIVE POC Glucose POC Glucose 93 120 H mri reviewed, no acute Assessment/Plan All Active Problems UTI (urinary tract infection) (Acute) Ataxia (Acute) Diplopia (Acute) History of Clostridium difficile infection (Resolved) neurologically intact, mri neg, exam essentially normal. no clear reason for complaints, lack of clear description of events is discoordant with the patients otherwies intact mental status. ? migraine phenomenon vs conversion. supportive rx, pt/ot recommended, home if no metabolic explanation prn sleep aide prn analgesics for headache 07/03/18 0956 <Electronically signed by Beau Silver MD> Date Beau Silver MD Cosigner Signature (if applicable): Date CC: Melissa Hess MD; Gillian Galvez; Delta Sierra MD Signed BASIC METABOLIC Collected: 07/02/2018 Status: F Source: [facility] PROFILE (BMP) 5:45 AM [facility] [place] [facility] TYPE CODE TESTS RESULT OUT OF RANGE REFERENCE UNITS LAB L501.0100 74-106 mg/dL High GLU 157 Result Comment: Fasting Glucose result greater than or equal to 126 mg/dL suggests DIABETES MELLITUS per A.D.A. criteria. Please note revised GLUCOSE reference range effective 2017. LAB L501.1000 7-18 mg/dL Normal BUN 18 LAB L501.1100 0.55-1.02 mg/dL Normal CREAT,SERUM 0.65 Result Comment: The validity of the calculated GFR AND GFRAA in patients over 70 years has not been determined. Clinical correlation is essential. LAB L501.1110 >60 mL/min Normal EST GFR 93 Result Comment: Non- GFR Calc LAB L501.1115 >60 mL/min Normal EST GFR - AA 113 Result Comment: GFR Calc LAB L501.1255 ml/min Normal Estimated CRCL 36.67 LAB L501.1300 10-20 RATIO High BUN/CRE 27.6 LAB L501.2200 8.5-10 mg/dL Normal .1 CA 8.8 LAB L501.5300 136-14 mmol/L Normal 5 NA 141 LAB L501.5600 3.5-5. mmol/L Normal 1 K 3.8 LAB L501.5900 98-107 mmol/L High CL 111 LAB L501.6100 21.0-3 mmol/L Low 2.0 CO2 18.0 LAB L501.6200 5-15 Normal GAP 12 Performed By: #### L500.2500 #### [facility] [address] [place], [place], [address] BEDSIDE GLUCOSE Collected: 07/01/2018 Status: F Source: [facility] 9:43 PM [facility] [place] [facility] TYPE CODE TESTS RESULT OUT OF REFERENCE UNITS RANGE LAB L501.080 70-110 mg/dL High BEDSIDE GLU 151 Result Comment: MANAGEMENT OF PATIENT CARE PER NURSING PROTOCOL Performed By: #### L501.080 #### [facility] Point of Care [address] [facility] [address] [place], [place] [address] BASIC METABOLIC Collected: 07/01/2018 Status: F Source: [facility] PROFILE (BMP) 4:15 PM [facility] [place] [facility] TYPE CODE TESTS RESULT OUT OF RANGE REFERENCE UNITS LAB L501.0100 74-106 mg/dL High GLU 140 Result Comment: Fasting Glucose result greater than or equal to 126 mg/dL suggests DIABETES MELLITUS per A.D.A. criteria. Please note revised GLUCOSE reference range effective 2017. LAB L501.1000 7-18 mg/dL Normal BUN 9 LAB L501.1100 0.55-1.02 mg/dL Normal CREAT,SERUM 0.71 Result Comment: The validity of the calculated GFR AND GFRAA in patients over 70 years has not been determined. Clinical correlation is essential. LAB L501.1110 >60 mL/min Normal EST GFR 84 Result Comment: Non- GFR Calc LAB L501.1115 >60 mL/min Normal EST GFR - AA 102 Result Comment: GFR Calc LAB L501.1255 ml/min Normal Estimated CRCL 36.67 LAB L501.1300 10-20 RATIO Normal BUN/CRE 12.6 LAB L501.2200 8.5-10 mg/dL Low .1 CA 8.4 LAB L501.5300 136-14 mmol/L Normal 5 NA 142 LAB L501.5600 3.5-5. mmol/L Normal 1 K 3.5 LAB L501.5900 98-107 mmol/L High CL 112 LAB L501.6100 21.0-3 mmol/L Low 2.0 CO2 20.0 LAB L501.6200 5-15 Normal GAP 10 Performed By: #### L500.2500 #### [facility] [address] [place], [address] ECHOCARDIOGRAM COMPLETE Observed: 07/01/2018 Status: F Source: ONSTED 2:33 PM [facility] [place] [facility] Cardiovascular Services [address] [place] [address] Echo Complete 07/01/18 0912 MR#: [id number] Acct: [id number] Name: INA VARMA Rep #: [id number] : 1940 78 From: Reilly Kulkarni MD Attending Dr: Deya Villareal MD Status: ADM IN Ordering Dr: Radha Galvez DO Date: 06/29/18 Location: PCU Sex: F C Admitted: 06/29/18 Reason For Study: TIA/CVA Procedure This was a 2D Doppler, Color Flow transthoracic echocardiogram. The study was technically difficult. Diminished accoustic parasternal windows. Exam performed portable in patient room. Left Ventricle Normal LV size. Left ventricular systolic function is normal. The estimated ejection fraction is 65 %. Stage 1 diastolic dysfunction. No regional wall motion abnormalities noted. Atria Normal left atrium. Normal right atrium. Bubble contrast study negative for right to left interatrial shunt. Mitral Valve Normal mitral valve. Mild (1+) eccentric mitral valve insufficiency. Tricuspid Valve Normal tricuspid valve. Mild (1+) tricuspid valve insufficiency. Pulmonary artery systolic pressure is 35 mmHg. Pulmonic Valve Normal pulmonic valve. Great Vessels Mildly dilated aortic root. The pulmonary artery is normal size. Normal inferior vena cava. Pericardium/Pleural No pericardial effusion. Medication Performed a rapid injection of agitated mix of 9 cc saline and 1cc air to assess for atrial septal defect. MMode/2D Measurements AND Calculations LVIDd: 4.9 cm IVSd: 0.91 cm Ao root diam: 4.0 cm LVIDs: 3.4 cm LVPWd: 0.95 cm RVDd: 3.2 cm FS: 30.8 % LAV(MOD-bp): 47.1 ml LA A4 area: 17.9 cm2 RA A4 area: 11.5 cm2 LAV(MOD-bp) Indexed: 26.8 ml/m2 LAV(MOD-sp2): 42.2 ml LAV(MOD-sp4): 49.1 ml Doppler Measurements AND Calculations MV E max claudio: 82.2 cm/sec Lat Peak E' Claudio: 9.9 cm/sec Med Peak E' Claudio: 7.7 cm/sec MV A max claudio: 102.2 cm/sec E/E' lat: 8.3 E/E' med: 10.7 MV E/A: 0.80 Ao V2 max: 165.6 cm/sec AI max claudio: 465.3 cm/sec LV V1 max: 113.2 cm/sec Ao max P.0 mmHg AI max P.7 mmHg LV V1 max P.1 mmHg Ao V2 mean: 107.4 cm/sec LV V1 mean P.8 mmHg Ao mean P.2 mmHg AI dec slope: 242.5 cm/sec2 LV V1 mean: 79.1 cm/sec Ao V2 VTI: 34.5 cm AI P1/2t: 562.0 msec LV V1 VTI: 27.2 cm PA V2 max: 118.0 cm/sec TR max claudio: 278.6 cm/sec TR max P.0 mmHg Interpretation Summary Normal LV size. Left ventricular systolic function is normal. The estimated ejection fraction is 65 %. Stage 1 diastolic dysfunction. Bubble contrast study negative for right to left interatrial shunt. Mild (1+) tricuspid valve insufficiency. Ordering Physician: Gillian Galvez Referring Physician: Delta Sierra Performed By: Meredith Burroughs, OCTAVIA, RVT 07/01/18 1432 Date Reilly Kulkarni MD CC: Deya Villareal MD; Gillian Galvez; Delta Sierra MD Date Dictated: 07/01/1812 Date Transcribed: 07/01/18 143 Calender Let Off Helper: Signed 12 LEAD ELECTROCARDIOGRAM Observed: 07/01/2018 Status: F Source: [facility] 8:57 AM [facility] [place] [facility] Cardiovascular Services [address] [place] [address] 12 Lead EKG 06/29/18 1558 MR#: [id number] Acct: [id number] Name: INA VARMA Roland Rep #: [id number] : 1940 78 From: Reilly Kulkarni MD Attending Dr: Deya Villareal MD Status: ADM IN Ordering Dr: Raphael Saez MD Date: 06/29/18 Location: [facility] Sex: F C Admitted: 06/29/18 Test Reason : WEAKNESS Blood Pressure : / mmHG Vent. Rate : 082 BPM Atrial Rate : 082 BPM P-R Int : 186 ms QRS Dur : 082 ms QT Int : 398 ms P-R-T Axes : 036 -12 024 degrees QTc Int : 464 ms Normal sinus rhythm Normal ECG Confirmed by JOSE OTTO, REILLY ([id number]), business editor MANUEL MCALLISTER ([id number]) on 07/01/2018 8:57:20 AM Referred By: Radha Galvez Confirmed By:REILLY KULKARNI MD 07/01/18 0857 Date Reilly Kulkarni MD CC: Deya Villareal MD; Gillian Galvez; Raphael Saez MD; Delta Sierra MD Signed BEDSIDE GLUCOSE Collected: 06/30/2018 Status: F Source: [facility] 4:22 PM [facility] [place] TYPE CODE TESTS RESULT OUT OF RANGE REFERENCE UNITS LAB L501.080 70-110 mg/dL Normal BEDSIDE GLU 93 Result Comment: MANAGEMENT OF PATIENT CARE PER NURSING PROTOCOL Performed By: #### L501.080 #### [facility] Point of Care [facility] [place] [address] URINE DRUG SCREEN Collected: 06/30/2018 Status: F Source: SAMY (VISTA) 3:25 PM [facility] [place] TYPE CODE TESTS RESULT OUT OF RANGE REFERENCE UNITS LAB L505.0075 TO BE Normal CONFIRMED Result Comment: CONFIRMATORY TESTING FOR ALL POSITIVE URINE DRUG SCREEN RESULTS WILL ONLY BE SENT OUT UPON PHYSICIAN ORDER. VISTA Urine Drug Screen methods provide only preliminary analytical test results. A more specific alternate chemical method must be used in order to obtain a confirmed analytical result. Gas chromatography/mass spectrometery (GC/MS) is the preferred confirmatory method. Clinical consideration and professional judgement should be applied to any drug of abuse test result, particularly when preliminary positive results are used. URINE TCA TESTING MUST BE ORDERED SEPARATELY. USE TEST MNEMONIC: [facility] LAB L505.5005 VISTA UDS PH 7 Normal LAB L505.5015 <1000 ng/mL AMPHETAMINES Normal NEGATIVE LAB L505.5025 < 200 ng/mL BARBITIURATES Normal NEGATIVE LAB L505.5035 < 200 ng/mL BENZODIAZIPINE Normal NEGATIVE LAB L505.5045 < 300 ng/mL COCAINE Normal NEGATIVE LAB L505.5055 < 500 ng/mL ECSTACY Normal NEGATIVE LAB L505.5065 < 300 ng/mL METHADONE Normal NEGATIVE LAB L505.5075 < 300 ng/mL OPIATES Normal NEGATIVE LAB L505.5085 < 25 ng/mL PCP Normal NEGATIVE LAB L505.5095 < 50 ng/mL THC Normal NEGATIVE Performed By: #### L505.5000 #### [facility] [address] [place], [address] BEDSIDE GLUCOSE Collected: 06/30/2018 Status: F Source: ONSTED 12:13 PM [facility] [place] TYPE CODE TESTS RESULT OUT OF REFERENCE UNITS RANGE LAB L501.080 70-110 mg/dL High BEDSIDE GLU 120 Result Comment: MANAGEMENT OF PATIENT CARE PER NURSING PROTOCOL Performed By: #### L501.080 #### [facility] Point of Care [address] [place] [address] BRAIN WITHOUT Observed: 06/30/2018 Status: F Source: ONSTED CONTRAST 9:05 AM [facility] [place] [facility] Imaging Services [address] [place] [id number] Brain without Contrast MR#: [id number] Acct: [id number] Name: INA VARMA Rep #: [id number] : 1940 F 78 From: Dion Faith MD PCP: Delta Sierra MD Status: ADM IN Study: Brain without Contrast Date of Exam: 06/30/18 Exam# [id number] Ordering Dr: Deya Villareal MD STUDY: MRI BRAIN WITHOUT CONTRAST REASON FOR EXAM: Female, 78 years old. CVA TECHNIQUE: Standardized multiplanar fat and water weighted pulse sequences were obtained. COMPARISON: July 02, 2012 MRI brain report and June 29, 2018 CT brain FINDINGS: No evidence for shift of midline structures, mass effect or compression of ventricles. No acute intra or extra-axial hemorrhage. No definite evidence for restricted diffusion to suggest acute or subacute ischemic insult. The ventricular system appears unremarkable. The basal cisterns are patent. Mild age-related cerebral fine loss. Scattered and confluent foci of T2/FLAIR hyperintensity in the periventricular and subcortical white matter noted which are nonspecific in imaging appearance however likely related with moderate chronic small vessel disease and/or demyelinating process. Subtle T2/FLAIR hyperintense foci in the stomach also seen. Skull base vascular flow voids appear patent IMPRESSION: No evidence for acute or subacute ischemic insult. No evidence for intracranial mass. No evidence for acute intracranial hemorrhage or mass effect Scattered and confluent foci of T2/FLAIR hyperintensity in the periventricular and subcortical white matter noted which are nonspecific in imaging appearance however likely related with moderate chronic small vessel disease and/or demyelinating process. Electronically Signed: Dion Faith, at 12:26 EST Tel , Service support , MRI/Brain without Contrast CC: Deya Villareal MD; Delta Sierra MD Calender Let Off Helper: Signed BEDSIDE GLUCOSE Collected: 06/30/2018 Status: F Source: SAMY 7:09 AM [facility] [place] TYPE CODE TESTS RESULT OUT OF RANGE REFERENCE UNITS LAB L501.080 70-110 mg/dL Normal BEDSIDE GLU 109 Result Comment: MANAGEMENT OF PATIENT CARE PER NURSING PROTOCOL Performed By: #### L501.080 #### [facility] Point of Care [address] [place] [address] CBC W/DIFF, AUTOMATED Collected: 06/30/2018 Status: F Source: SAMY 5:37 AM [facility] [place] TYPE CODE TESTS RESULT OUT OF RANGE REFERENCE UNITS LAB L100.1000 4.4-11.0 K/mm3 Normal WBC 4.7 LAB L100.1200 4.2-5.4 M/mm3 Low RBC 3.79 LAB L100.1300 12.0-15.0 g/dl Low HGB 10.6 LAB L100.1400 37-47 % Low HCT 34.6 LAB L100.1500 81-99 fL Normal MCV 91.3 LAB L100.1600 27.0-32.0 pg Normal MCH 28.0 LAB L100.1700 32-36 g/gl Low MCHC 30.6 LAB L100.1810 11.6-14.6 % High RDW CV 14.7 LAB L100.1820 35.1-43.9 fl High RDW SD 49.5 LAB L100.1900 150-450 K/mm3 Normal PLT 185 LAB L100.2000 6.2-12.0 fl Normal MPV 11.4 LAB L100.2100 47-70 % Normal NEUT% 59.2 LAB L100.2200 19-41 % Normal LY% 28.3 LAB L100.2300 0-10 % Normal MONO% 8.1 LAB L100.2400 0-5 % Normal EO% 3.8 LAB L100.2500 0-1 % Normal BASO% 0.4 LAB L100.2550 0.0-0.9 % Normal IM GRAN % 0.200 Result Comment: IG% - Immature Granulocytes (promyelocytes, myelocytes and metamyelocytes) > 1% indicates that a LEFT SHIFT is Present. LAB L100.2620 2.0-7.7 X10 3/uL Normal Absolute Neut 2.8 LAB L100.2720 0.83-4.51 X10 3/ul Normal Absolute Lymph 1.33 Performed By: #### L100.0100 #### [facility] [address] [place], [address] COMPREHENSIVE METABOLIC Collected: 06/30/2018 Status: F Source: [facility] 5:37 AM [facility] [place] TYPE CODE TESTS RESULT OUT OF RANGE REFERENCE UNITS LAB L501.0100 74-106 mg/dL High GLU 111 Result Comment: Fasting Glucose result from 100 to 125 mg/dL suggests IMPAIRED HOMEOSTASIS per A.D.A. criteria. Please note revised GLUCOSE reference range effective 2017. LAB L501.1000 7-18 mg/dL Normal BUN 14 LAB L501.1100 0.55-1.02 mg/dL Normal CREAT,SERUM 0.65 Result Comment: The validity of the calculated GFR AND GFRAA in patients over 70 years has not been determined. Clinical correlation is essential. LAB L501.1110 >60 mL/min Normal EST GFR 93 Result Comment: Non- GFR Calc LAB L501.1115 >60 mL/min Normal EST GFR - AA 113 Result Comment: GFR Calc LAB L501.1255 ml/min Normal Estimated CRCL 36.67 LAB L501.1300 10-20 RATIO High BUN/CRE 21.4 LAB L501.1500 6.4-8. g/dL Low 2 T PROT 5.9 LAB L501.1800 3.2-5. g/dL Normal 0 ALB 3.2 LAB L501.1950 2.2-4. g/dL Normal 2 GLOB 2.7 LAB L501.2000 0.9-2. RATIO Normal 4 A/G 1.2 LAB L501.2200 8.5-10 mg/dL Low .1 CA 7.8 LAB L501.4100 15-37 U/L Normal AST 22 LAB L501.4305 45-117 U/L Normal ALK P 75 LAB L501.4405 13-56 U/L Normal ALT 20 LAB L501.4600 0.20-1 mg/dL Normal .00 T BILI 0.30 LAB L501.5300 136-14 mmol/L High 5 NA 147 LAB L501.5600 3.5-5. mmol/L Normal 1 K 3.5 LAB L501.5900 98-107 mmol/L High CL 117 LAB L501.6100 21.0-3 mmol/L Normal 2.0 CO2 21.0 LAB L501.6200 5-15 Normal GAP 9 Performed By: #### L500.4050, L500.4100, L501.2300, L501.5200 #### [facility] [address] [place], [address] LIPID PROFILE Collected: 06/30/2018 Status: F Source: [facility] 5:37 AM [facility] [place] TYPE CODE TESTS RESULT OUT OF RANGE REFERENCE UNITS LAB L501.4900 200 mg/dL Normal CHOL 144 Result Comment: <200 mg/dL Desirable 200-240 mg/dL Borderline >240 mg/dL High Risk LAB L501.5000 mg/dL Normal TRIG 179 Result Comment: The drugs N-Acetylcysteine and Metamizole may falsely depress this assay. Serum Triglycerides Reference Interval Normal <150 mg/dL Borderline high 150 - 199 mg/dL High 200 - 499 mg/dL Very High > or = 500 mg/dL LAB L501.6400 mg/dL Low HDL 36 Result Comment: The drugs N-Acetylcysteine and Metamizole may falsely depress this assay. Reference Range HDL <40 mg/dL Low HDL Cholesterol HDL >or= 60 mg/dL High HDL Cholesterol LAB L501.6500 0-130 mg/dL Normal LDL 72 LAB L501.6600 5-40 mg/dL Normal VLDL 36 Performed By: #### L500.4050, L500.4100, L501.2300, L501.5200 #### [facility] [address] [place], [address] PHOSPHORUS Collected: 06/30/2018 Status: F Source: ONSTED 5:37 AM [facility] [place] TYPE CODE TESTS RESULT OUT OF RANGE REFERENCE UNITS LAB L501.2300 2.5-4.9 mg/dL Normal PHOS 2.8 Performed By: #### L500.4050, L500.4100, L501.2300, L501.5200 #### [facility] [address] [place], [address] MAGNESIUM Collected: 06/30/2018 Status: F Source: ONSTED 5:37 AM [facility] [place] TYPE CODE TESTS RESULT OUT OF RANGE REFERENCE UNITS LAB L501.5200 1.6-2.6 mg/dL Normal MG 2.1 Performed By: #### L500.4050, L500.4100, L501.2300, L501.5200 #### [facility] [address] [place], [address] EMERGENCY DEPARTMENT Observed: 06/29/2018 Status: F Source: SAMY SUMMARY 10:58 PM [facility] [place] [facility] Medical Records Department [address] [place] [address] Emergency Department Summary 06/29/18 1536 MR#: [id number] Acct: [id number] Name: INA VARMA Rep #: [id number] : 1940 78 From: Raphael Saez MD PCP: Delta Sierra MD Status: ADM IN - ER Visit Summary Date of Service: 06/29/18 Chief Complaint: I am falling all over the place History of Present Illness: The patient is a 78 F history of hypertension and MS. Patient states since the last 2 days she just felt off balance and has had trouble ambulating to the point where she is had some falls. She denies any significant injuries. She denies any head injury. She denies any LOC. She denies any severe headaches. States she feels dehydrated. She denies any nausea, vomiting or diarrhea. States that she is peeing more often. She denies any dysuria or gross hematuria. She denies any fever or melena. She denies any trouble using her arms and legs. Physical Examination: Well-appearing older female. No acute distress. Vital signs are stable and afebrile. Temperature 99 degrees orally. Pulse ox 90% on room air no hypoxia. HEENT exam dry mucous membranes. Otherwise unremarkable. Neck nontender no lymphadenopathy. Lungs clear to auscultation bilaterally. Heart regular rate and rhythm no murmur rate about 80. Abdomen is soft and nontender. Normal bowel sounds no peritoneal signs. Patient is moving all 4 extremities. Neurovascularly intact. Calves are nontender without edema or cords. Neurologically she is awake. She is alert. She follows commands. She answers questions. She has no slurred speech. No facial droop. 5 out of 5 motor 3rd pressman strength bilaterally. 5 out of 5 dorsi and plantar flexion. Fingertip to nose within normal limits. NIH score is 0. Test Results: Portable 1 view chest x-ray shows no acute abnormality read both by myself and the radiologist. EKG normal sinus rhythm rate of 80 with no acute abnormality and unchanged from prior EKG from 2012. CBC White count is 5. Hemoglobin 12. No bands. Electrolytes unremarkable normal BUN/creatinine and gap. UA is consistent with urinary tract infection with positive nitrates and 10-25 white cells with 3+ bacteria. For that a urine culture was sent and patient be started on IV Rocephin. Troponin was normal. Orthostatic vital signs were negative. Nurses attempted to walk the patient and she was unable to walk she was too weak. CAT scan of the brain is pending I reviewed it I do not see any acute obvious abnormality obviously are waiting for the radiologist interpretation. Emergency Department Course and Treatment: Older female with recent frequent falls. Other than clinically appearing somewhat dehydrated her exam is basically unremarkable lying in bed. She will be treated with a liter of normal saline. Treatment Plan: IV antibiotics and admission. I will discussed with the hospitalist. Disposition: admit Impression: Frequent falls UTI Unable to walk This note was generated with [employer] dictation software. It may contain incorrect words, spelling, and punctuation that were not noted in review of the chart prior to signing ED Disposition - Plan for ED Patient: Chief Complaint: Weakness Referrals: Delta Sierra MD [Primary Care Provider] - What to do if you have Problems For any increased pain, shortness of breath, bleeding, nausea or vomiting, chest pain, or any unexpected problems, contact your Primary Care Provider. Call [employer] [facility] ([phone]) or report to the closest Emergency Room. Call 911 if necessary. 06/29/18 2258 <Electronically signed by Raphael Saez MD> Date Raphael Saez MD Cosigner Signature (If Indicated): Date CC: Delta Sierra MD BEDSIDE GLUCOSE Collected: 06/29/2018 Status: F Source: ONSTED 10:25 PM [facility] [place] TYPE CODE TESTS RESULT OUT OF RANGE REFERENCE UNITS LAB L501.080 70-110 mg/dL Normal BEDSIDE GLU 104 Result Comment: MANAGEMENT OF PATIENT CARE PER NURSING PROTOCOL Performed By: #### L501.080 #### [facility] [place] [address] TROPONIN-I Collected: 06/29/2018 Status: F Source: ONSTED 9:38 [facility] REPOSITORY Order Comment: 'TROP' Serial specimen #1, #2 or #3: 3 TYPE CODE TESTS RESULT OUT OF RANGE REFERENCE UNITS LAB L501.4010 <0.045 ng/mL Normal < 0.015 TROPONIN-I Result Comment: TROPONIN-I EXPECTED VALUES <0.045 Negative 0.045 - 0.590 Consistent with Cardiac Damage > OR = 0.600 Critical Value Not every elevated troponin is indicative of NH. These values should be used with clinical judgement in examining the patient's clinical picture for diagnosis. To establish a diagnosis of NH versus myocardial injury, there must be a demonstrated rise and/or fall in the troponin values, in addition to ischemic symptoms, EKG changes, new regional wall motion abnormality, and/or angiographical evidence. PLEASE NOTE: REFERENCE RANGES EDITED 17 Performed By: #### L501.4010 #### [facility] [address] [place], [address] HISTORY AND PHYSICAL Observed: 06/29/2018 Status: F Source: ONSTED EXAM 6:39 PM [facility] [place] [facility] Medical Records Department [address] [place] [address] History and Physical 06/29/18 1807 MR#: [id number] Acct: [id number] Name: INA VARMA Rep #: [id number] : 1940 78 From: Radha Galvez DO PCP: Delta Sierra MD Status: ADM IN Location: [place] [address] Problem List (1) COLLIN (obstructive sleep apnea) Status: Chronic Comment: on CPAP (2) Seizure disorder Status: Chronic (3) UTI (urinary tract infection) Status: Acute Qualifiers: Urinary tract infection type: acute cystitis (4) Ataxia Status: Acute (5) Diplopia Status: Acute (6) Chronic obstructive lung disease Status: Chronic (7) Dyslipidemia Status: Chronic (8) History of Clostridium difficile infection Status: Resolved (9) Hypertension Status: Chronic Qualifiers: Hypertension type: essential hypertension Qualified Code(s): I10 - Essential (primary) hypertension (10) Multiple sclerosis Status: Chronic Comment: has never required treatment (11) Migraines Status: Chronic History of Present Illness Date of Admission: 06/29/18 Chief Complaint: frequent falls and unsteady gait X 2 days The patient is a 78 year old F with a past medical history of hypertension, hyperlipidemia, multiple sclerosis (untreated), migraine cephalgia, COLLIN, seizure disorder and a heart MM who presented to the ED at [facility] on 06/29/2018 complaining of frequent falls due to unsteady gait over the past 48 hours associated with frequent urination. She tells me that suddenly on she could not maintain her balance and has been bumping into the ovalle and falling. Prior to she did not even use an AD. She has also had double vision since that started at the same time as the unsteady gait. She denies vertigo and has no RUFFIN, nausea or vomiting. No unilateral weakness or numbness. No trouble with speech and no trouble swallowing. She has had increased urination and denies dysuria, fever, chills, sweats. She denies any history of stroke in the past. She does have a history of seizures, migraines and MS per Dr. Silver. She has been told the MS is very mild and she has never been treated for MS. She is on Topimax. Vital signs of presentation to the emergency room were temperature 99, pulse rate 87, blood pressure 146/95, respiratory rate 20 and pulse ox was 92% on room air. Orthostatic blood pressures were negative for orthostatic hypotension. CBC was unremarkable. The sodium was 143 with a potassium of 3.6 and a chloride of 113. Serum bicarb was 21. BUN was 14 with a creatinine of 0.86. Random blood sugar was 116 and she denies any personal history of diabetes but there is an extensive history of diabetes in her family. Troponin was less than 0.016. UA showed 10-25 WBCs per high-power field with 3+ bacteria and positive nitrites. Urine specific gravity was 1.025. It was a catheterized specimen and it was sent for culture. Brain CT showed chronic involutional changes of the brain with no acute hemorrhage. AP chest showed no acute findings but the patient was markedly rotated to the right. EKG showed normal sinus rhythm with no suspicious ST or T wave changes. She was stood by Dr. Saez and he attempted to walk her after 1 liter of IV fluid but she was ataxic. She is being admitted to a monitored bed on PCU with ataxia and diplopia suspected to be due to CVA. Past Medical History Past Medical History (Chronic Problems): Chronic Problems COLLIN (obstructive sleep apnea) (Chronic) on CPAP Seizure disorder (Chronic) Migraines (Chronic) Multiple sclerosis (Chronic) has never required treatment Chronic obstructive lung disease (Chronic) Hypertension (Chronic) Dyslipidemia (Chronic) Allergies No Known Allergies Allergy (Verified 06/29/18 15:13) Home Medications: Ambulatory Orders Medication Instructions Recorded Atorvastatin Calcium [Lipitor] 40 mg PO QHS 06/29/18 Hydroxyzine HCl 25 mg PO BID PRN PRN 06/29/18 Loratadine 10 mg PO DAILY 06/29/18 Surgical History: noncontributory Psychiatric History: Depression Lives: Alone Smoking Status: Former smoker - she quit a few years ago. Started smoking at 12 YOA and has smoked up to 2 PPD in the past Tobacco Use: Non-smoker Alcohol: Rare Drugs: None - *Family History Maternal History Items: Diabetes, High Cholesterol, Hypertension Paternal History Items: No pertinent history Review of Systems Constitutional: Reports: Weakness. Denies: Chills, Fever, Night Sweats, Weight Change Eyes: Reports: Double vision, Vision Change - diplopia when both eyes open since HEENT: Reports: Visual Changes, - - very dry mouth. Denies: Difficulty Swallowing, Head Aches, Nasal Congestion, Sinus Congestion, Sinus Drainage, Sore Throat Cardiovascular: Denies: Chest Pain, Edema, Light Headedness, Orthopnea, Palpitations, Paroxysmal Noc. Dyspnea, Syncope Respiratory: Reports: Cough - dry. Denies: Shortness of Breath, Shortness of breath at rest, Sputum production Gastrointestinal: Denies: Abdominal Pain, Constipation, Diarrhea, Nausea, Vomiting Genitourinary: Reports: Frequency, Nocturia. Denies: Dysuria Gynecological: Denies: Breast symptoms, Vaginal bleeding, Vaginal discharge Musculoskeletal: Denies: Joint Pain, Joint Tenderness Skin: Reports: Dryness. Denies: Jaundice, Rash, Wounds Neurological: Reports: Balance problems, Double vision, Confusion, Seizures - she has a hx of seizures but has not had any for a long time. Denies: Change in Speech, Slurred speech, Difficulty swallowing, Focal weakness, Headaches, Numbness, Tingling Psychiatric: Denies: Anxiety, Depression, Homicidal Ideations, Suicidal Ideations Endocrine: Denies: Change in Body Habitus, Hx of Thyroiditis Hematologic/ Lymphatic: Denies: Easy Bruising, Easy Bleeding, Hx of blood clot VTE Information - Inpt Only VTE Present on Admission: No VTE Mechan Device Prophylaxis: SCD's, Knee High PRATIBHA Hose VTE Pharm Prophylaxis ordered?: Yes Patient Problems: Active and Suspected Problems UTI (urinary tract infection) (Acute) Ataxia (Acute) Diplopia (Acute) - Physical Exam General: Alert, Oriented x3, Cooperative, Well developed, Well nourished, - - having some trouble with short term memory and numbers per pt however, she is alert and oriented X 3 HEENT: Atraumatic, PERRLA, EOMI, Normocephalic Neck: Supple, No JVD, Negative Carotid Bruits Lungs: Clear to auscultation, No rhonchi, No wheeze, No rales, Diminished Cardiovascular: Regular rate, Regular Rhythm, Normal S1, Normal S2, Murmur - 2/6 SUDHAKAR at the second RICS, No rub noted, No Gallop Abdomen: Bowel Sounds Present, Soft, Non Tender, Non-Distended, - - No abdominal bruits Extremities: No clubbing, No cyanosis, No edema, Capillary Refill Less than 3 Seconds, Peripheral Pulses Normal - normal in the LE's however the radial pulses are diminished Skin: No rashes, No breakdown Musculoskeletal: No Tenderness to Palpation of Joints or Extremities, No Muscle Wasting Neurological: Cranial nerves II-XII grossly intact, Unsteady Gait Psych/Mental Status: Normal Affect, Appropriate Vital Signs Temp Pulse Resp BP Pulse Ox 99.0 F 73 15 169/93 H 93 06/29/18 15:13 06/29/18 17:33 06/29/18 17:33 06/29/18 17:33 06/29/18 17:33 Oxygen Delivery Method Room Air Weight: 164 lb 7.437 oz Body Mass Index (BMI) 30.0 Laboratory Tests Past 24 Hrs WBC 5.6 RBC 4.23 Assessment/Plan All Active Problems UTI (urinary tract infection) (Acute) Ataxia (Acute) Diplopia (Acute) History of Clostridium difficile infection (Resolved) Impressions 1. sudden onset of double vision and gait instability on 06/27 - suspect ischemic CVA, could also be MS 2. UTI 3. HTN 4. HLD 5. seizure disorder 6. hx of MS - has never required tx 7. migraine cephalgia 8. COPD 9. Remote history of C. difficile infection Admit to a monitored bed on PCU Initiate Stroke protocol MRI of the head and MRA of the head and the neck. Neurology consult Antiplatelet therapy with aspirin [address], PT and OT consults Bedside swallow eval Hydrate Lipid profile in the AM EKG Echocardiogram Start Rocephin 1 g IV daily for urinary tract infection and await the results of the urine culture Recheck lab in the a.m. Code Visit Inpatient E AND M: 24051 Init Hosp L3 06/29/18 1839 <Electronically signed by Radha Galvez DO> Date Radha Galvez DO Cosigner Signature: Date (if applicable) CC: Gillian Galvez; Delta Sierra MD Signed MRA HEAD ONLY WITHOUT Observed: 06/29/2018 Status: F Source: ONSTED CONTRAST 6:38 PM [facility] [place] [facility] Imaging Services [address] [place] [id number] MRA Head ONLY without Contrast MR#: [id number] Acct: [id number] Name: INA VARMA Rep #: [id number] : 1940 F 78 From: Dion Faith MD PCP: Delta Sierra MD Status: ADM IN Study: MRA Head ONLY without Contrast Date of Exam: 06/30/18 Exam# [id number] Ordering Dr: Radha Galvez DO STUDY: MRA OF THE HEAD WITHOUT CONTRAST REASON FOR EXAM: Female, 78 years old. CVA TECHNIQUE: 3-D [id number] (TOF) imaging was performed with MIPs. The study was performed unenhanced. COMPARISON: None. FINDINGS: Visualized segments of the petrous, cavernous and supraclinoid internal carotid artery are patent. Bilateral middle cerebral arteries are patent. Patent anterior communicating artery. The anterior cerebral arteries are patent. The vertebral arteries are not well visualized. Vertebrobasilar junction is patent. The basilar artery is patent. Posterior cerebral arteries are patent. IMPRESSION: Significantly motion degraded MR angiogram of the head however no evidence for intracranial large vessel occlusion seen. Electronically Signed: Dion Faith, at 12:17 EST Tel , Service support , MRI/MRA Head ONLY without Contrast CC: Gillian Galvez; Delta Sierra MD Calender Let Off Helper: Signed MRA NECK WITHOUT Observed: 06/29/2018 Status: F Source: ONSTED CONTRAST 6:38 PM [facility] [place] [facility] Imaging Services [address] [place] [address] MRA Neck without Contrast MR#: [id number] Acct: [id number] Name: INA VARMA Rep #: [id number] : 1940 F 78 From: Dion Faith MD PCP: Delta Sierra MD Status: ADM IN Study: MRA Neck without Contrast Date of Exam: 06/30/18 Exam# [id number] Ordering Dr: Radha Galvez DO STUDY: MRA NECK WITHOUT CONTRAST REASON FOR EXAM: Female, 78 years old. CVA TECHNIQUE: Source images were obtained, MIPs were performed. The study was performed unenhanced. COMPARISON: None. FINDINGS: The origin of the great vessels are not visualized. The bilateral common carotid arteries are patent. The cervical internal carotid arteries are patent. The carotid bifurcations are not well seen due to significant patient motion artifact. Visualized vertebral arteries are patent. IMPRESSION: Significant patient motion degraded MR angiogram of the neck. Hemodynamically significant stenosis cannot be excluded. Nonetheless no definite evidence for carotid or vertebral artery occlusion seen. Electronically Signed: Dion Faith, at 12:20 EST Tel , Service support , MRI/MRA Neck without Contrast CC: Gillian Galvez; Delta Sierra MD Calender Let Off Helper: Signed URINALYSIS, COMPLETE Collected: 06/29/2018 Status: F Source: SAMY 3:50 PM [facility] [place] Order Comment: How was Urine Obtained? GLASS GRINDER TO SPECIFY TYPE CODE TESTS RESULT OUT OF RANGE REFERENCE UNITS LAB L400.3000 Yellow COLOR Normal Yellow LAB L400.3050 Clear Normal CLARITY Sl. Cloudy LAB L400.3200 Normal mg/dl Normal GLUCOSE, UR Normal LAB L400.3300 Negative mg/dL Normal BILIRUBIN URINE Negative LAB L400.3400 Negative mg/dl Normal KETONE UR Negative LAB L400.3465 1.002-1.030 Normal SP.GR. DIPSTX 1.025 LAB L400.3550 5.0 - 8.0 pH UR Normal 5.0 LAB L400.3600 Negative mg/dl PROT Normal DIPSTX Negative LAB L400.3700 Normal mg/dl Normal UROBILI Normal LAB L400.3750 Negative High NITRITE UR Positive LAB L400.3780 Negative /ul High 10 OCCULT BLOOD-UR LAB L400.3800 Negative /ul High LEUK ESTERASE 500 LAB L400.4050 0-5 /hpf WBC Normal 10-25 SEEN LAB L400.4100 0-5 /hpf 0 Normal RBC-UA SEEN LAB L400.4150 5-10 /hpf SQUAM 0 Normal EPI SEEN LAB L400.4300 None Seen /hpf 3+ Normal BACTERIA LAB L400.4350 <or=2+ /hpf 0 Normal MUCUS, URINE SEEN Performed By: #### L400.0001 #### [facility] [address] [place], [address] Observed: 06/29/2018 Status: F Source: SAMY CULTURE, URINE 3:50 PM [facility] [place] Has pt arrived? Y Urine Culture ORGANISM 1: Presumptive E. coli [place] Count >100,000 Presumptive E. coli: REACTION Ampicillin $ 4 S Ampicillin/Sulbactam $ <=2 S Cefazolin $ <=4 S Cefepime $ <=0.12 S Ceftazidime *NF <=1 S Ceftriaxone $ <=0.25 S Ciprofloxacin $ <=0.25 S Ertapenim $$$ <=0.12 S ESBL NEG Gentamicin $ <=1 S Imipenem *NF <=0.25 S Levofloxacin $ <=0.12 S Nitrofurantoin $ <=16 S Piperacillin/Tazobactam $$ <=4 S Tobramycin $ <=1 S Trimethoprim/Sulfametho $ <=20 S (NF) indicates non-formulary drug at [facility]. Approval by Infectious Disease Specialist required before non-formulary drugs may be ordered and/or dispensed. Performed By: #### M100.0650 #### [facility] [address] [place], [address] CHEST 1 VIEW Observed: 06/29/2018 Status: F Source: ONSTED (PORTABLE) 3:30 PM [facility] [place] [facility] Imaging Services [address] [place] [address] Chest 1 View (Portable) MR#: [id number] Acct: [id number] Name: INA VARMA Rep #: [id number] : 1940 F 78 From: Enrico Mata MD PCP: Delta Sierra MD Status: REG ER Study: Chest 1 View (Portable) Date of Exam: 06/29/18 Exam# [id number] Ordering Dr: Raphael Saez MD STUDY: X-RAY CHEST REASON FOR EXAM: Female, 78 years old. Weakness TECHNIQUE: Single AP portable view of the chest. COMPARISON: None. FINDINGS: EKG leads overlie the chest There are interstitial fibrotic changes of the lungs. There is no demonstrated pleural abnormality. There is cardiomegaly. Normal mediastinum and andrew. Normal visualized pulmonary arteries. Normal visualized aortic arch and descending thoracic aorta. Normal visualized thoracic spine. Normal visualized ribs, clavicles, and shoulders. There is no demonstrated abnormality of the visualized soft tissue structures of the upper abdomen. RAD/Chest 1 View (Portable) IMPRESSION: No acute findings, cardiomegaly Electronically Signed: Miguel Mata MD at 16:07 EST , Service support , CC: Raphael Saez MD; Delta Sierra MD Calender Let Off Helper: Signed BRAIN/HEAD WITHOUT Observed: 06/29/2018 Status: F Source: SAMY CONTRAST 3:30 PM [facility] [place] [facility] Imaging Services [address] [place] [address] Brain/Head without Contrast MR#: [id number] Acct: [id number] Name: INA VARMA Rep #: [id number] : 1940 F 78 From: Enrico Mata MD PCP: Delta Sierra MD Status: REG ER Study: Brain/Head without Contrast Date of Exam: 06/29/18 Exam# [id number] Ordering Dr: Raphael Saez MD STUDY: CT BRAIN WITHOUT CONTRAST REASON FOR EXAM: Female, 78 years old. Weakness and falls RADIATION DOSAGE (If Supplied By Facility): CTDIvol = ( 44.99 ) mGy, DLP = ( 745.49 ) mGycm TECHNIQUE: Transaxial CT imaging of the brain was performed without administration of intravenous contrast material. Individualized dose optimization techniques were used for this CT. COMPARISON: 11/29/2011 FINDINGS: Normal soft tissue structures. Normal calvarium. There is mild cerebral atrophy with widening of the extra- axial spaces and ventricular dilatation. There are areas of decreased attenuation within the white matter tracts of the supratentorial brain, consistent with microvascular disease changes. There are small punctate calcifications of the basal ganglia which are seen in the aging brain as a normal variant. Normal brainstem. Normal cerebellum. There is no intracranial hemorrhage. There are no findings of an acute ischemic infarction. Normal visualized paranasal sinuses. CT/Brain/Head without Contrast IMPRESSION: Chronic involutional changes of the brain. No acute hemorrhage Electronically Signed: Miguel Mata MD at 16:38 EST , Service support , CC: Raphael Saez MD; Delta Sierra MD Calender Let Off Helper: Signed CBC W/DIFF, AUTOMATED Collected: 06/29/2018 Status: F Source: SAMY 3:20 PM [facility] [place] TYPE CODE TESTS RESULT OUT OF RANGE REFERENCE UNITS LAB L100.1000 4.4-11.0 K/mm3 Normal WBC 5.6 LAB L100.1200 4.2-5.4 M/mm3 Normal RBC 4.23 LAB L100.1300 12.0-15.0 g/dl Normal HGB 12.0 LAB L100.1400 37-47 % Normal HCT 38.1 LAB L100.1500 81-99 fL Normal MCV 90.1 LAB L100.1600 27.0-32.0 pg Normal MCH 28.4 LAB L100.1700 32-36 g/gl Low MCHC 31.5 LAB L100.1810 11.6-14.6 % High RDW CV 14.7 LAB L100.1820 35.1-43.9 fl High RDW SD 48.2 LAB L100.1900 150-450 K/mm3 Normal PLT 201 LAB L100.2000 6.2-12.0 fl Normal MPV 11.4 LAB L100.2100 47-70 % High NEUT% 70.2 LAB L100.2200 19-41 % Normal LY% 19.8 LAB L100.2300 0-10 % Normal MONO% 6.7 LAB L100.2400 0-5 % Normal EO% 2.7 LAB L100.2500 0-1 % Normal BASO% 0.4 LAB L100.2550 0.0-0.9 % Normal IM GRAN % 0.200 Result Comment: IG% - Immature Granulocytes (promyelocytes, myelocytes and metamyelocytes) > 1% indicates that a LEFT SHIFT is Present. LAB L100.2620 2.0-7.7 X10 3/uL Normal Absolute Neut 3.9 LAB L100.2720 0.83-4.51 X10 3/ul Normal Absolute Lymph 1.10 Performed By: #### L100.0100 #### [facility] [address] [place], [address] BASIC METABOLIC Collected: 06/29/2018 Status: F Source: SAMY PROFILE (BMP) 3:20 PM [facility] [place] TYPE CODE TESTS RESULT OUT OF RANGE REFERENCE UNITS LAB L501.0100 74-106 mg/dL High GLU 116 Result Comment: Fasting Glucose result from 100 to 125 mg/dL suggests IMPAIRED HOMEOSTASIS per A.D.A. criteria. Please note revised GLUCOSE reference range effective 2017. LAB L501.1000 7-18 mg/dL Normal BUN 14 LAB L501.1100 0.55-1.02 mg/dL Normal CREAT,SERUM 0.86 Result Comment: The validity of the calculated GFR AND GFRAA in patients over 70 years has not been determined. Clinical correlation is essential. LAB L501.1110 >60 mL/min Normal EST GFR 68 Result Comment: Non- GFR Calc LAB L501.1115 >60 mL/min Normal EST GFR - AA 82 Result Comment: GFR Calc LAB L501.1255 ml/min Normal Estimated CRCL 42.64 LAB L501.1300 10-20 RATIO Normal BUN/CRE 16.3 LAB L501.2200 8.5-10 mg/dL Normal .1 CA 8.6 LAB L501.5300 136-14 mmol/L Normal 5 NA 143 LAB L501.5600 3.5-5. mmol/L Normal 1 K 3.6 LAB L501.5900 98-107 mmol/L High CL 113 LAB L501.6100 21.0-3 mmol/L Normal 2.0 CO2 21.0 LAB L501.6200 5-15 Normal GAP 9 Performed By: #### L500.2500, L501.4010 #### [facility] [address] [place], [place], [address] TROPONIN-I Collected: 06/29/2018 Status: F Source: ONSTED 3:20 PM [facility] [place] TYPE CODE TESTS RESULT OUT OF RANGE REFERENCE UNITS LAB L501.4010 <0.045 ng/mL Normal < 0.015 TROPONIN-I Result Comment: TROPONIN-I EXPECTED VALUES <0.045 Negative 0.045 - 0.590 Consistent with Cardiac Damage > OR = 0.600 Critical Value Not every elevated troponin is indicative of NH. These values should be used with clinical judgement in examining the patient's clinical picture for diagnosis. To establish a diagnosis of NH versus myocardial injury, there must be a demonstrated rise and/or fall in the troponin values, in addition to ischemic symptoms, EKG changes, new regional wall motion abnormality, and/or angiographical evidence. PLEASE NOTE: REFERENCE RANGES EDITED 17 Performed By: #### L500.2500, L501.4010 #### [facility] [address] [place], [address] MAGNESIUM Collected: 06/29/2018 Status: F Source: ONSTED 3:20 PM [facility] [place] TYPE CODE TESTS RESULT OUT OF RANGE REFERENCE UNITS LAB L501.5200 1.6-2.6 mg/dL Normal MG 2.0 Performed By: #### L501.5200, L501.9520 #### [facility] [place], [address] THYROID STIM HORMONE Collected: 06/29/2018 Status: F Source: ONSTED (TSH) 3:20 PM [facility] [place] [facility] TYPE CODE TESTS RESULT OUT OF RANGE REFERENCE UNITS LAB L501.9520 0.358-3.74 uIU/mL Normal TSH 1.23 Performed By: #### L501.5200, L501.9520 #### [facility] [place], [address] URINALYSIS WITH Collected: 03/29/2018 Status: F Source: [facility] 12:25 PM [facility] REPOSITORY TYPE CODE TESTS RESULT OUT OF RANGE REFERENCE UNITS LAB UCOL Yellow Color Abnormal Katherine Alert LAB [facility] Clear Clarity Abnormal Cloudy Alert LAB UGLUC Negative mg/dL Glucose, Urine Negative LAB UBIL Negative Bilirubin, Urine Negative LAB UKET Negative Ketones, Abnormal Urine Trace Alert LAB USPG 1.005-1.030 High Specific Wyatt, Ur 1.032 LAB UHGB Negative Hemoglobin/Blood, Negative Ur LAB UPH 4.5-8.0 pH 5.0 LAB UPROT Negative mg/dL Protein, Abnormal Urine 30 Alert LAB UUROB Normal Abnormal Urobilinogen Elevated Alert LAB UNITR Negative Nitrites Negative LAB ULKEST Negative Leukest Negative LAB UCOM Comments SEE COMMENT Result Comment: N/A LAB UMCOM Urine SEE Jeremias Comment COMMENT Result Comment: N/A LAB UWBC 0-5 /HPF WBC 0-5 LAB URBC 0-3 /HPF RBC 0-3 LAB UEPI /HPF Epithelial SEE Cells COMMENT Result Comment: Few Squamous Epithelial Cells LAB UCRYS 0 /HPF Abnormal Alert Crystals SEE COMMENT Result Comment: Moderate Calcium Oxalate Crystal Performed By: #### UAWMIC #### [facility] [address] [place], [place] [address] Observed: 03/29/2018 Status: F Source: [place] URINE CULTURE 12:25 PM [facility] REPOSITORY Culture Result - 10,000 - <50,000 CFU/ml Normal urogenital miranda Performed By: #### URCUL #### [facility] [address] [place] [address] CBC Collected: 03/29/2018 Status: F Source: [place] 12:23 PM [facility] REPOSITORY TYPE CODE TESTS RESULT OUT OF REFERENCE UNITS RANGE LAB WBC 3.70-11.00 k/uL WBC 7.51 LAB RBC 3.90-5.20 m/uL RBC 5.13 LAB HGB 11.5-15.5 g/dL Hemoglobin 13.7 LAB HCT 36.0-46.0 % High Hematocrit 46.5 LAB MCV 80.0-100.0 fL MCV 90.6 LAB MCH 26.0-34.0 pG MCH 26.7 LAB MCHC 30.5-36.0 g/dL Low MCHC 29.5 LAB RDWCV 11.5-15.0 % RDW-CV High 15.9 LAB PLTCT 150-400 k/uL Platelet Count 259 LAB MPV 9.0-12.7 fL MPV High 12.8 LAB ABSNUC <0.01 k/uL Absolute nRBC <0.01 Performed By: #### CBC, CMP, FERR, TSH, B12, IRON, PTHI, FT4, VITD, HBA1C #### [facility] [email or web address] [place], [place] [address] COMP METABOLIC PANEL Collected: 03/29/2018 Status: F Source: [place] 12:23 PM [facility] REPOSITORY TYPE CODE TESTS RESULT OUT OF REFERENCE UNITS RANGE LAB TP 6.3-8.0 g/dL Protein, Total 7.8 LAB ALB 3.9-4.9 g/dL Albumin High 5.1 LAB CA 8.5-10.2 mg/dL Calcium, Total 10.0 LAB TBIL 0.2-1.3 mg/dL Bilirubin, Total 0.2 LAB ALKP 34-123 U/L Alkaline High Phosphatase 125 LAB AST 13-35 U/L AST 18 LAB GLU 74-99 mg/dL Glucose High 105 Result Comment: The [place] [employer] (ADA) provides guidance for cutoff values for fasting glucose and random glucose. The ADA defines fasting as no caloric intake for at least 8 hours. Fas ting plasma glucose results between 100 to 125 mg/dL indicate increased risk for diabetes (prediabetes). Fasting plasma glucose results greater than or equal to 126 mg/dL meet the criteria for diagnosis of diabetes. In the absence of unequivocal hyperglycemia, results should be confirmed by repeat testing. In a patient with classic symptoms of hyperglycemia or hyperglycemic crisis, random plasma glucose results greater than or equal to 200 mg/dL meet the criteria for diagnosis of diabetes. Reference: Standards of Medical Care in Diabetes 2016, [place] [employer]. Diabetes Care. 2016.39(Suppl 1). LAB BUN 7-21 mg/dL BUN High 22 LAB CRET 0.58-0.96 mg/dL Creatinine 0.83 LAB NA 136-144 mmol/L Sodium 141 LAB K 3.7-5.1 mmol/L Potassium 4.1 LAB CL 97-105 mmol/L Chloride 102 LAB CO2 22-30 mmol/L Low CO2 19 LAB AGAP 9-18 mmol/L Anion Gap High 20 LAB ALT 7-38 U/L ALT 17 LAB GFRAA eGFR- Amer. >60 LAB GFRNAA . eGFR-All Other Races >60 Result Comment: eGFR (Estimated GFR) Units of measure: mL/min/1.73 meters squared eGFR is derived from the reexpressed MDRD Study equation using the following parameters: serum creatinine, age, gender and race. The creatinine assay has been calibrated to be traceable to IDMS. An eGFR <60 mL/min/1.73m2 for >3 months is consistent with chronic kidney disease. Refer to KDOQI guidelines for clinical interpretation. In patients with unstable renal function, e.g. those with acute kidney injury, the eGFR may not accurately reflect actual GFR. Performed By: #### CBC, CMP, FERR, TSH, B12, IRON, PTHI, FT4, VITD, HBA1C #### [place] [address] FERRITIN Collected: 03/29/2018 Status: F Source: [place] 12:23 [facility] REPOSITORY TYPE CODE TESTS RESULT OUT OF REFERENCE UNITS RANGE LAB FERR 14.7-205.1 ng/mL Ferritin 37.1 Performed By: #### CBC, CMP, FERR, TSH, B12, IRON, PTHI, FT4, VITD, HBA1C #### [place] [address] TSH Collected: 03/29/2018 Status: F Source: [place] 12:23 [facility] REPOSITORY TYPE CODE TESTS RESULT OUT OF RANGE REFERENCE UNITS LAB TSH 0.400-5.500 uU/mL TSH 2.060 Performed By: #### CBC, CMP, FERR, TSH, B12, IRON, PTHI, FT4, VITD, HBA1C #### [place] [address] VITAMIN B12 Collected: 03/29/2018 Status: F Source: [place] 12:23 [facility] REPOSITORY TYPE CODE TESTS RESULT OUT OF REFERENCE UNITS RANGE LAB B12 232-1245 pg/mL Vitamin B12 313 Performed By: #### CBC, CMP, FERR, TSH, B12, IRON, PTHI, FT4, VITD, HBA1C #### [place] [address] IRON AND TIBC Collected: 03/29/2018 Status: F Source: [place] 12:23 [facility] REPOSITORY TYPE CODE TESTS RESULT OUT OF REFERENCE UNITS RANGE LAB IRN 41-186 ug/dL Iron 78 LAB TIBC 232-386 ug/dL TIBC 340 LAB SAT 15-57 % Transferrin Saturatn 23 Performed By: #### CBC, CMP, FERR, TSH, B12, IRON, PTHI, FT4, VITD, HBA1C #### [facility] [address] [address] [place] [address] PTH, INTACT Collected: 03/29/2018 Status: F Source: [place] 12:23 [facility] REPOSITORY TYPE CODE TESTS RESULT OUT OF REFERENCE UNITS RANGE LAB PTH 15-65 pg/mL High PTH, Intact 68 Performed By: #### CBC, CMP, FERR, TSH, B12, IRON, PTHI, FT4, VITD, HBA1C #### [place] [address] FREE T4 Collected: 03/29/2018 Status: F Source: [place] 12:23 [facility] REPOSITORY TYPE CODE TESTS RESULT OUT OF RANGE REFERENCE UNITS LAB FT4 0.9-1.7 ng/dL Free T4 1.1 Performed By: #### CBC, CMP, FERR, TSH, B12, IRON, PTHI, FT4, VITD, HBA1C #### [place] [address] VITAMIN D 25 HYDROXY Collected: 03/29/2018 Status: F Source: [place] 12:[address] [place] [address] REPOSITORY TYPE CODE TESTS RESULT OUT OF REFERENCE UNITS RANGE LAB VITD 31.0-80.0 ng/mL Low Vitamin D 25 13.0 Hydroxy Result Comment: Classification of 25 [place] Vitamin D status: Insufficiency/Moderate Deficiency: < or = 30 ng/mL Sufficiency/Optimal Levels: 31 to 80 ng/mL Toxicity: > 100 ng/mL Test performed by chemiluminescent immunoassay. Performed By: #### CBC, CMP, FERR, TSH, B12, IRON, PTHI, FT4, VITD, HBA1C #### [facility] [address] [place], [place] [id number] HEMOGLOBIN A1C Collected: 03/29/2018 Status: F Source: [place] 12:[address] [place] [address] REPOSITORY TYPE CODE TESTS RESULT OUT OF REFERENCE UNITS RANGE LAB HGBA1C 4.3-5.6 % High Hemoglobin A1c 6.0 LAB HBA0 mg/dL Est. Average Glucose 126 Result Comment: eAG: (Estimated average glucose) is a calculated value from HgbA1c and is metals sales representative of the average blood glucose level in the last 2-3 month period. Performed By: #### CBC, CMP, FERR, TSH, B12, IRON, PTHI, FT4, VITD, HBA1C #### [facility] [address] [place], [place] [address] PROGRESS Observed: 03/29/2018 Status: COMPLETED Source: [place] 11:26 AM [facility] REPOSITORY HNO ID: [id number] Author: Delta Sierra Service: (none) Author Type: Physician Type: Progress Notes Filed: 04/01/2018 11:39 AM Note Text: Patient presents with: Recheck: follow up SUBJECTIVE: Ina Varma is a 78 year old year old lady here today for 6 month follow up appointment for review of medical conditions. Not dieting Eating healthy diet most of the time. Eating mostly vegetables. Not much meat. Once in a while salmon. More tired lately. Sleeps better if stops drinking around 4PM. 1 to 2 times nocturia; more if drinks more. Dry mouth. Still with urinary frequency during the day despite ditropan.. Continues to use CPAP. Dr. Silver had followed with her. PAST MEDICAL HISTORY Diagnosis Date - Benign neoplasm of colon - COPD (chronic obstructive pulmonary disease) (HCC) presumed based on smoking history - HTN (hypertension) - Migraine 12/06/2011 diagnosed at [facility] by Dr. Silver - Multiple sclerosis (HCC) 1984 - COLLIN on CPAP Current Outpatient Prescriptions: PARoxetine (PAXIL) 40 mg tablet Take 1 tablet by mouth once daily. losartan (COZAAR) 100 mg tablet Take 1 tablet by mouth once daily. topiramate (TOPAMAX) 25 mg tablet Take 1 tablet by mouth twice daily. as directed hydrOXYzine HCl (ATARAX) 25 mg tablet TAKE 1 TABLET BY MOUTH TWICE DAILY NEEDED FOR ANXIETY atorvastatin (LIPITOR) 40 mg tablet Take 1 tablet by mouth once daily. oxybutynin (DITROPAN) 5 mg tablet Take 1 tablet by mouth twice daily. CPAP CPAP supplies: Mask (per patient preference), head gear, optional chin strap (if indicated) , filters, tubing, humidifier and lifetime supplies. (G47.33, Z99.89) COLLIN on CPAP albuterol HFA (VENTOLIN HFA) 90 mcg/actuation inhaler Inhale 2 Puffs as instructed every 4 hours as needed for Wheezing/Shortness of Breath. No current facility-administered medications for this visit. OBJECTIVE: BP 116/82 Pulse 80 Resp 20 Wt 72.9 kg (160 lb 12.8 oz) BMI 29.89 kg/m? Patient is alert, oriented times 3, no apparent distress, affect is bright, reactive. Last 5 Encounter BP Readings: Date: BP: 03/29/2018 116/82 09/28/2017 118/80 03/23/2017 122/72 10/20/2016 138/86 09/19/2016 114/86 Last 5 Encounter Wt Readings: Date: Wt: 03/29/2018 72.9 kg (160 lb 12.8 oz) 09/28/2017 75.3 kg (166 lb) 03/23/2017 73.5 kg (162 lb) 10/20/2016 75.8 kg (167 lb) 09/19/2016 75.3 kg (166 lb) Heart: Regular rate, rhythm, no murmurs, gallops, rubs. Lungs: Clear to auscultation, bilaterally, breathing non labored. Ext: No cyanosis, clubbing, or edema. Component Latest Ref Rng AND Units 03/08/2016 09/07/2016 09/28/2017 Glucose 74 - 99 mg/dL 100 (H) 98 96 BUN 7 - 21 mg/dL 14 19 16 Creatinine 0.58 - 0.96 mg/dL 0.78 0.79 0.82 Sodium 136 - 144 mmol/L 142 142 140 Potassium 3.7 - 5.1 mmol/L 4.1 4.4 4.1 Chloride 97 - 105 mmol/L 105 108 (H) 104 CO2 22 - 30 mmol/L 21 (L) 20 (L) 19 (L) Anion Gap 9 - 18 mmol/L 16 14 17 Calcium 8.5 - 10.2 mg/dL 9.5 9.2 10.5 (H) eGFR- >60 >60 >60 eGFR-All Other Races . >60 >60 >60 Triglyceride <150 mg/dL 250 (H) 199 (H) 187 (H) Cholesterol, Total <200 mg/dL 243 (H) 223 (H) 205 (H) HDL Cholesterol >39 mg/dL 43 (L) 45 (L) 53 VLDL Cholesterol <30 mg/dL 50 (H) 40 37 (H) LDL Cholesterol <100 mg/dL 150 (H) 138 (H) 115 (H) Fasting Time hrs FASTING 18 22 TC:HDL Ratio <5.10 5.65 (H) 4.96 3.87 LDL:HDL Ratio <2.54 3.49 3.07 2.17 Non HDL Cholesterol <130 mg/dL 200 (H) 178 (H) 152 (H) Hemoglobin A1C 4.3 - 5.6 % 5.9 (H) 6.1 (H) 5.9 (H) Estimated Average Glucose mg/dL 123 128 123 ASSESSMENT AND PLAN: Encounter Diagnosis ICD-10-CM 1. IFG (impaired fasting glucose) R73.01 COMP METABOLIC PANEL HGB A1C 2. Essential hypertension I10 COMP METABOLIC PANEL CBC 3. Migraine without aura and without status migrainosus, not intractable G43.009 will see neuro to see if MS or migraines; sometimes vision affected like double vision at night; no nausea; throbbingheadache 4. Multiple sclerosis (HCC) G35 will see for follow up on this and headaches 5. COLLIN on BiPAP G47.33 BIPAP Z99.89 Needs new machine; hers is from 2012 when was initially diagnosed; increased fatigue lately; Dr. Silver had ordered 6. Fatigue, unspecified type R53.83 COMP METABOLIC PANEL CBC TSH BLD T4 FREE/FREE THYROX VITAMIN B12 BLOOD FERRITIN BLD IRON + TIBC HGB A1C URINALYSIS WITH MICROSCOPIC URINE CULTURE 7. Urinary frequency R35.0 URINALYSIS WITH MICROSCOPIC URINE CULTURE 8. Nocturia R35.1 9. Mixed hyperlipidemia E78.2 10. Serum calcium elevated E83.52 PTH INTACT BLD VITAMIN D 25 HYDROXY Above issues addressed with patient. Patient involved in shared decision making for management of medical issues. History and medications reviewed. Epic updated as needed Refills taken care of and meds adjusted as indicated after reviewed history, exam and labs. Health Maintenance reviewed. Updated record and/or ordered tests as recorded. Encouraged on efforts at healthy diet and regular exercise and adequate sleep. Will see if new BiPAP takes care of fatigue issues; inadequately treated COLLIN could also be contributing to headache issues. If not improved with new BiPAP machine, consider re-evaluation with re-titration study or consult with sleep medicine provider. Note that has been using BiPAP routinely and takes care of cleaning parts and getting new mask routinely. Follow up with MS providers as well. Labs as above for follow up on issues including mildly elevated calcium level. Further evaluation and treatment as indicated. Note that lipids have been improving. Continue present management. Needs to keep working on diet and exercise with lifestyle changes for effective weight loss as well as prevention of DM, and control of BP and lipids. The majority of the visit was spent counseling and/or coordinating care for the patient. Qvry-wh-fylp time was at least 25 minutes. Delta Sierra MD CNOV Observed: 03/29/2018 Status: COMPLETED Source: [place] 11:00 AM [facility] REPOSITORY Office Visit (INTMWS) INA VARMA ([id number]) 1940 F Date Time Provider Department 03/29/18 11:00 AM DELTA SIERRA INTMWS During your visit today, we recorded the following information about you: Pulse Respiration Blood pressure Weight 80/minute 20/minute 116/82 72.9 kg Delta Sierra MD 04/01/2018 11:39 AM Signed Patient presents with: Recheck: follow up SUBJECTIVE: Inaalexander Varma is a 78 year old year old lady here today for 6 month follow up appointment for review of medical conditions. Not dieting Eating healthy diet most of the time. Eating mostly vegetables. Not much meat. Once in a while salmon. More tired lately. Sleeps better if stops drinking around 4PM. 1 to 2 times nocturia; more if drinks more. Dry mouth. Still with urinary frequency during the day despite ditropan.. Continues to use CPAP. Dr. Silver had followed with her. PAST MEDICAL HISTORY Diagnosis Date - Benign neoplasm of colon - COPD (chronic obstructive pulmonary disease) (HCC) presumed based on smoking history - HTN (hypertension) - Migraine 12/06/2011 diagnosed at [facility] by Dr. Silver - Multiple sclerosis (HCC) 1984 - COLLIN on CPAP Current Outpatient Prescriptions: PARoxetine (PAXIL) 40 mg tablet Take 1 tablet by mouth once daily. losartan (COZAAR) 100 mg tablet Take 1 tablet by mouth once daily. topiramate (TOPAMAX) 25 mg tablet Take 1 tablet by mouth twice daily. as directed hydrOXYzine HCl (ATARAX) 25 mg tablet TAKE 1 TABLET BY MOUTH TWICE DAILY NEEDED FOR ANXIETY atorvastatin (LIPITOR) 40 mg tablet Take 1 tablet by mouth once daily. oxybutynin (DITROPAN) 5 mg tablet Take 1 tablet by mouth twice daily. CPAP CPAP supplies: Mask (per patient preference), head gear, optional chin strap (if indicated) , filters, tubing, humidifier and lifetime supplies. (G47.33, Z99.89) COLLIN on CPAP albuterol HFA (VENTOLIN HFA) 90 mcg/actuation inhaler Inhale 2 Puffs as instructed every 4 hours as needed for Wheezing/Shortness of Breath. No current facility-administered medications for this visit. OBJECTIVE: BP 116/82 Pulse 80 Resp 20 Wt 72.9 kg (160 lb 12.8 oz) BMI 29.89 kg/m? Patient is alert, oriented times 3, no apparent distress, affect is bright, reactive. Last 5 Encounter BP Readings: Date: BP: 03/29/2018 116/82 09/28/2017 118/80 03/23/2017 122/72 10/20/2016 138/86 09/19/2016 114/86 Last 5 Encounter Wt Readings: Date: Wt: 03/29/2018 72.9 kg (160 lb 12.8 oz) 09/28/2017 75.3 kg (166 lb) 03/23/2017 73.5 kg (162 lb) 10/20/2016 75.8 kg (167 lb) 09/19/2016 75.3 kg (166 lb) Heart: Regular rate, rhythm, no murmurs, gallops, rubs. Lungs: Clear to auscultation, bilaterally, breathing non labored. Ext: No cyanosis, clubbing, or edema. Component Latest Ref Rng AND Units 03/08/2016 09/07/2016 09/28/2017 Glucose 74 - 99 mg/dL 100 (H) 98 96 BUN 7 - 21 mg/dL 14 19 16 Creatinine 0.58 - 0.96 mg/dL 0.78 0.79 0.82 Sodium 136 - 144 mmol/L 142 142 140 Potassium 3.7 - 5.1 mmol/L 4.1 4.4 4.1 Chloride 97 - 105 mmol/L 105 108 (H) 104 CO2 22 - 30 mmol/L 21 (L) 20 (L) 19 (L) Anion Gap 9 - 18 mmol/L 16 14 17 Calcium 8.5 - 10.2 mg/dL 9.5 9.2 10.5 (H) eGFR- >60 >60 >60 eGFR-All Other Races . >60 >60 >60 Triglyceride <150 mg/dL 250 (H) 199 (H) 187 (H) Cholesterol, Total <200 mg/dL 243 (H) 223 (H) 205 (H) HDL Cholesterol >39 mg/dL 43 (L) 45 (L) 53 VLDL Cholesterol <30 mg/dL 50 (H) 40 37 (H) LDL Cholesterol <100 mg/dL 150 (H) 138 (H) 115 (H) Fasting Time hrs FASTING 18 22 TC:HDL Ratio <5.10 5.65 (H) 4.96 3.87 LDL:HDL Ratio <2.54 3.49 3.07 2.17 Non HDL Cholesterol <130 mg/dL 200 (H) 178 (H) 152 (H) Hemoglobin A1C 4.3 - 5.6 % 5.9 (H) 6.1 (H) 5.9 (H) Estimated Average Glucose mg/dL 123 128 123 ASSESSMENT AND PLAN: Encounter Diagnosis ICD-10-CM 1. IFG (impaired fasting glucose) R73.01 COMP METABOLIC PANEL HGB A1C 2. Essential hypertension I10 COMP METABOLIC PANEL CBC 3. Migraine without aura and without status migrainosus, not intractable G43.009 will see neuro to see if MS or migraines; sometimes vision affected like double vision at night; no nausea; throbbingheadache 4. Multiple sclerosis (HCC) G35 will see for follow up on this and headaches 5. COLLIN on BiPAP G47.33 BIPAP Z99.89 Needs new machine; hers is from 2012 when was initially diagnosed; increased fatigue lately; Dr. Silver had ordered 6. Fatigue, unspecified type R53.83 COMP METABOLIC PANEL CBC TSH BLD T4 FREE/FREE THYROX VITAMIN B12 BLOOD FERRITIN BLD IRON + TIBC HGB A1C URINALYSIS WITH MICROSCOPIC URINE CULTURE 7. Urinary frequency R35.0 URINALYSIS WITH MICROSCOPIC URINE CULTURE 8. Nocturia R35.1 9. Mixed hyperlipidemia E78.2 10. Serum calcium elevated E83.52 PTH INTACT BLD VITAMIN D 25 HYDROXY Above issues addressed with patient. Patient involved in shared decision making for management of medical issues. History and medications reviewed. Epic updated as needed Refills taken care of and meds adjusted as indicated after reviewed history, exam and labs. Health Maintenance reviewed. Updated record and/or ordered tests as recorded. Encouraged on efforts at healthy diet and regular exercise and adequate sleep. Will see if new BiPAP takes care of fatigue issues; inadequately treated COLLIN could also be contributing to headache issues. If not improved with new BiPAP machine, consider re-evaluation with re-titration study or consult with sleep medicine provider. Note that has been using BiPAP routinely and takes care of cleaning parts and getting new mask routinely. Follow up with MS providers as well. Labs as above for follow up on issues including mildly elevated calcium level. Further evaluation and treatment as indicated. Note that lipids have been improving. Continue present management. Needs to keep working on diet and exercise with lifestyle changes for effective weight loss as well as prevention of DM, and control of BP and lipids. The majority of the visit was spent counseling and/or coordinating care for the patient. Qlgo-zi-qplw time was at least 25 minutes. Delta Sierra MD Referring Provider: DELTA SIERRA [[id number]] Allergies As of Date: 03/29/2018 Noted Allergy Reaction LISINOPRIL 10/28/2009 3 - Cough Date Reviewed: 03/29/2018 Reviewed by: Sue Hi LPN - Fully Assessed Reason for Visit: Recheck [92] Cmt: follow up Primary Visit Diagnosis:IFG (impaired fasting glucose) [R73.01] Other Visit Diagnoses:Essential hypertension [I10] Migraine without aura and without status migrainosus, not intractable [G43.009] Comment:will see neuro to see if MS or migraines; sometimes vision affected like double vision at night; no nausea; throbbingheadache Multiple sclerosis (HCC) [G35] Comment:will see for follow up on this and headaches COLLIN on BiPAP [G47.33, Z99.89] Comment:Needs new machine; hers is from 2012 when was initially diagnosed; increased fatigue lately; Dr. Silver had ordered Fatigue, unspecified type [R53.83] Urinary frequency [R35.0] Nocturia [R35.1] Mixed hyperlipidemia [E78.2] Serum calcium elevated [E83.52] Order(s):PARoxetine (PAXIL) 40 mg tabletTake 1 tablet by mouth once daily.Disp: 90 tabletRfl: 3 losartan (COZAAR) 100 mg tabletTake 1 tablet by mouth once daily.Disp: 90 tabletRfl: 3 topiramate (TOPAMAX) 25 mg tabletTake 1 tablet by mouth twice daily. as directedDisp: 180 tabletRfl: 3 hydrOXYzine HCl (ATARAX) 25 mg tabletTake 1 tablet by mouth twice daily as needed.Disp: 180 tabletRfl: 3 albuterol HFA (VENTOLIN HFA) 90 mcg/actuation inhalerInhale 2 Puffs as instructed every 4 hours as needed for Wheezing/Shortness of Breath.Disp: 1 InhalerRfl: 3 BIPAPContinue BiPAP @ 14/8 cm of water with humidification. Mask (per patient preference) optional chin strap (if indicated) , filters, tubing, humidifier and lifetime supplies.Disp: 1 DeviceRfl: 0 COMP METABOLIC PANEL [SQCMP] Order #: [id number] FUTURE CBC [SQCBC] Order #: [id number] FUTURE TSH BLD [SQTSH] Order #: [id number] FUTURE T4 FREE/FREE THYROX [SQFT4] Order #: [id number] FUTURE VITAMIN B12 BLOOD [SQB12] Order #: [id number] FUTURE FERRITIN BLD [SQFERR] Order #: [id number] FUTURE IRON + TIBC [SQIRON] Order #: [id number] FUTURE HGB A1C [WCWRE7I] Order #: [id number] FUTURE URINALYSIS WITH MICROSCOPIC [SQUAWMIC] Order #: [id number] FUTURE URINE CULTURE [SQURCUL] Order #: [id number]. #:[id number] PTH INTACT BLD [SQPTHI] Order #: [id number] FUTURE VITAMIN D 25 HYDROXY [SQVITD] Order #: [id number] FUTURE Prescriptions as of 03/29/2018 Sig: PAROXETINE 40 MG TABLET Take 1 tablet by mouth once d* LOSARTAN 100 MG TABLET Take 1 tablet by mouth once d* TOPIRAMATE 25 MG TABLET Take 1 tablet by mouth twice * HYDROXYZINE HCL 25 MG TABLET Take 1 tablet by mouth twice * ALBUTEROL SULFATE HFA 90 MCG/* Inhale 2 Puffs as instructed * ATORVASTATIN 40 MG TABLET Take 1 tablet by mouth once d* OXYBUTYNIN CHLORIDE 5 MG TABL* Take 1 tablet by mouth twice * CPAP CPAP supplies: Mask (per pat* BIPAP Continue BiPAP @ 14/8 cm of w* Problem List As Of Date 03/29/2018 Noted Resolved MULTIPLE SCLEROSIS [G35] INVALID FOR* Recurrent major depressive disorder, in full re*INVALID FOR* Mixed hyperlipidemia [E78.2] INVALID FOR* Other malaise and fatigue [R53.81, R53.83] INVALID FOR* Anxiety state [F41.1] INVALID FOR* Headache [R51] INVALID FOR* MITRAL VALVE PROLAPSE [I05.9] INVALID FOR* HEARING LOSS NOS [H91.90] INVALID FOR* Sinusitis, chronic [J32.9] INVALID FOR* DEVIATED NASAL SEPTUM [J34.2] INVALID FOR* UNDIAGNOSED CARDIAC MURMURS [R01.1] INVALID FOR* Hypertension [I10] INVALID FOR* Otitis media, chronic serous [H65.20] INVALID FOR*03/14/2016 Other and unspecified chronic nonsuppurative ot*INVALID FOR*03/14/2016 Migraine [G43.909] INVALID FOR* More... Osteopenia [M85.80] INVALID FOR* More... IFG (impaired fasting glucose) [R73.01] INVALID FOR* COLLIN on CPAP [G47.33, Z99.89] Prescriptions ordered this encounter Disp Refills Start End PAROXETINE 40 MG TABLET 90 t* 3 03/29/2018 Route: ORAL Sig: Take 1 tablet by mouth once daily. LOSARTAN 100 MG TABLET 90 t* 3 03/29/2018 Route: ORAL Sig: Take 1 tablet by mouth once daily. TOPIRAMATE 25 MG TABLET 180 * 3 03/29/2018 Route: ORAL Sig: Take 1 tablet by mouth twice daily. as directed HYDROXYZINE HCL 25 MG TABLET 180 * 3 03/29/2018 Route: ORAL Sig: Take 1 tablet by mouth twice daily as needed. ALBUTEROL SULFATE HFA 90 MCG/ACTUATI* 1 In* 3 03/29/2018 Route: INHALATION Sig: Inhale 2 Puffs as instructed every 4 hours as needed for Wheezing/Shortness of Breath. BIPAP 1 De* 0 03/29/2018 Class: Print RX Sig: Continue BiPAP @ 14/8 cm of water with humidification. Mask (per patient preference) optional chin strap (if indicated) , filters, tubing, humidifier and lifetime supplies. Medications Discontinued During This Encounter PARoxetine (PAXIL) 40 mg tablet 90 t* 1 12/07/2017 03/29/2018 Route: ORAL Sig: Take 1 tablet by mouth once daily. Disc: Reason for discontinue is not on file. losartan (COZAAR) 100 mg tablet 90 t* 1 12/07/2017 03/29/2018 Route: ORAL Sig: Take 1 tablet by mouth once daily. Disc: Reason for discontinue is not on file. topiramate (TOPAMAX) 25 mg tablet 180 * 1 12/07/2017 03/29/2018 Route: ORAL Sig: Take 1 tablet by mouth twice daily. as directed Disc: Reason for discontinue is not on file. hydrOXYzine HCl (ATARAX) 25 mg tablet 180 * 3 12/06/2017 03/29/2018 Cmt: This prescription was filled on 12/06/2017. Any refills authorized will be placed on file. Sig: TAKE 1 TABLET BY MOUTH TWICE DAILY NEEDED FOR ANXIETY Disc: Reason for discontinue is not on file. albuterol HFA (VENTOLIN HFA) 90 mcg/* 1 In* 1 03/23/2017 03/29/2018 Route: INHALATION Sig: Inhale 2 Puffs as instructed every 4 hours as needed for Wheezing/Shortness of Breath. Disc: Reason for discontinue is not on file. Disposition: Return in about 6 months (around 09/27/2018) for 6 months follow up, With labs prior. Follow-up and Disposition History Recorded Encounter Status:Closed by DELTA SIERRA MD on 04/01/18 CNCO Observed: 10/24/2017 Status: COMPLETED Source: [place] 7:30 AM [facility] [place] REPOSITORY HN ID: [id number] Author: Mammography Coordinator Service: (none) Author Type: Physician Type: Letter Filed: 10/25/2017 11:31 PM Note Text: October 24, 2017 PID: [id number] Ina Varma [address] [place] [address] Dear Ms. Varma, We are pleased to inform you that the results of your recent breast imaging exam on 10/23/2017 are normal. Early detection of cancer is very important. We also understand recommendations regarding breast cancer screening are controversial. Please discuss with your primary care provider which strategy is best for you and whether a mammogram is right for you. Your imaging studies and report will be kept on file at [facility] as part of your permanent medical record and are available for your continuing care. Thank you for allowing us to help in meeting your health care needs. Sincerely, Dr. Spain Interpreting Radiologist [facility] (Normal over 40) PROGRESS Observed: 10/23/2017 Status: COMPLETED Source: [place] 10:29 AM [facility] REPOSITORY HNO ID: [id number] Author: Judy Ramos Service: (none) Author Type: (none) Type: Progress Notes Filed: 10/23/2017 10:33 AM Note Text: Radiology Service Progress Note PATIENT NAME: Ina Varma DATE OF SERVICE: October 23, 2017 TIME: 10:30 AM PATIENT IDENTITY VERIFICATION COMPLETED USING TWO (2) METHODS: Patient confirmed name verbally and Date of . PATIENT GENDER DATA: Female. status: : No status: NO. PATIENT RELEVANT IMPLANT DATA REVIEWED: Yes RADIOLOGY DEPARTMENT: Women's HealthSCREENING SHELLI MAMMOGRAM PERIPHERAL IV DATA: Not applicable SIGNED BY: Melisa Ramos October 23, 2017 10:30 AM HECTOR SCREENING W SHELLI Observed: 10/23/2017 Status: F Source: [place] 10:25 AM [facility] REPOSITORY * * *Final Report* * * DATE OF EXAM: Oct 23 2017 10:25AM [facility] [place] 0582 - HECTOR SCREENING W SHELLI / PROCEDURE REASON: Encounter for screening mammogram for malignant neoplasm of breast * * * * Physician Interpretation * * * * RESULT: #[id number] - HECTOR SCREENING W SHELLI BILATERAL DIGITAL SCREENING MAMMOGRAM TOMOSYNTHESIS WITH CAD: 10/23/2017 HISTORY: Encounter For Screening Mammogram For Malignant Neoplasm Of Breast /Screening Mammogram - patient reports NO breast symptoms /Priors available for comparison. RESULT: TECHNIQUE: The study was acquired using full field digital technology and interpreted from soft copy. Digital Breast Tomosynthesis (DBT) images were obtained and used to assist in the interpretation of this examination. Current study was also evaluated with a Computer Aided Detection (CAD). Comparison is made to exams dated: 10/05/2016 mammogram and 05/12/2015 mammogram - [facility]. The tissue of both breasts is predominantly fatty. Bilateral breast implants are stable. No significant masses, calcifications, or other findings are seen in either breast. There has been no significant interval change. IMPRESSION: NEGATIVE There is no mammographic evidence of malignancy.A 1 year screening mammogram is recommended. Wilma espinoza/tena:10/24/2017 07:30:00 Restaurant Area Director: Melisa MCGRATH)(Radha), [facility] letter sent: Normal over 40 Mammogram BI-RADS: 1 Negative Calender Let Off Helper: Tena Transcribe Date/Time: Oct 23 2017 10:22A Dictated by: WILMA SPAIN MD This examination was interpreted and the report reviewed and electronically signed by: WILMA SPAIN MD on Oct 24 2017 7:30AM EST [id number] URINALYSIS WITH Collected: 09/28/2017 Status: F Source: [facility] 2:28 PM CLINIC [facility]IN [facility]AMP[facility] REPOSITORY TYPE CODE TESTS RESULT OUT OF RANGE REFERENCE UNITS LAB UCOL Yellow Color Yellow LAB [facility] Clear Clarity Abnormal Cloudy Alert LAB UGLUC Negative mg/dL Glucose, Urine Negative LAB UBIL Negative Bilirubin, Urine Negative LAB UKET Negative Ketones, Abnormal Urine Trace Alert LAB USPG 1.005-1.030 Specific [place], Ur 1.024 LAB UHGB Negative Hemoglobin/Blood, Negative Ur LAB UPH 4.5-8.0 pH 5.0 LAB UPROT Negative mg/dL Protein, Urine Negative LAB UUROB Normal Urobilinogen Normal LAB UNITR Negative Nitrites Negative LAB ULKEST Negative Leukest Negative LAB UCOM Comments SEE COMMENT Result Comment: N/A LAB UMCOM Urine SEE Jeremias Comment COMMENT Result Comment: N/A LAB UWBC 0-5 /HPF WBC 0-5 LAB URBC 0-3 /HPF RBC 0-3 LAB UEPI /HPF Epithelial SEE Cells COMMENT Result Comment: Few Squamous Epithelial Cells LAB UCRYS 0 /HPF Abnormal Alert Crystals SEE COMMENT Result Comment: Few Calcium Oxalate Crystal Performed By: #### UAWMIC #### [facility] [address] [place], [place] [address] Observed: 09/28/2017 Status: F Source: [place] URINE CULTURE 2:28 PM [facility] REPOSITORY Culture Result - 10,000 - <50,000 CFU/ml Normal urogenital miranda Performed By: #### URCUL #### [facility] [address] [place], [place] [address] BASIC METABOLIC PANL Collected: 09/28/2017 Status: F Source: [place] 2:27 PM [facility] REPOSITORY TYPE CODE TESTS RESULT OUT OF REFERENCE UNITS RANGE LAB GLU 74-99 mg/dL Glucose 96 Result Comment: The [place] Diabetes Association (ADA) provides guidance for cutoff values for fasting glucose and random glucose. The ADA defines fasting as no caloric intake for at least 8 hours. Fas ting plasma glucose results between 100 to 125 mg/dL indicate increased risk for diabetes (prediabetes). Fasting plasma glucose results greater than or equal to 126 mg/dL meet the criteria for diagnosis of diabetes. In the absence of unequivocal hyperglycemia, results should be confirmed by repeat testing. In a patient with classic symptoms of hyperglycemia or hyperglycemic crisis, random plasma glucose results greater than or equal to 200 mg/dL meet the criteria for diagnosis of diabetes. Reference: Standards of Medical Care in Diabetes 2016, [place] [employer] Association. Diabetes Care. 2016.39(Suppl 1). LAB BUN 7-21 mg/dL BUN 16 LAB CRET 0.58-0.96 mg/dL Creatinine 0.82 LAB NA 136-144 mmol/L Sodium 140 LAB K 3.7-5.1 mmol/L Potassium 4.1 LAB CL 97-105 mmol/L Chloride 104 LAB CO2 22-30 mmol/L Low CO2 19 LAB AGAP 9-18 mmol/L Anion Gap 17 LAB CA 8.5-10.2 mg/dL Calcium, High Total 10.5 LAB GFRAA eGFR- Amer. >60 LAB GFRNAA . eGFR-All Other Races >60 Result Comment: eGFR (Estimated GFR) Units of measure: mL/min/1.73 meters squared eGFR is derived from the reexpressed MDRD Study equation using the following parameters: serum creatinine, age, gender and race. The creatinine assay has been calibrated to be traceable to IDMS. An eGFR <60 mL/min/1.73m2 for >3 months is consistent with chronic kidney disease. Refer to KDOQI guidelines for clinical interpretation. In patients with unstable renal function, e.g. those with acute kidney injury, the eGFR may not accurately reflect actual GFR. Performed By: #### BMP, LIPB, HBA1C #### [facility] [address] [place], [place] [address] LIPID PANEL, BASIC Collected: 09/28/2017 Status: F Source: [place] 2:27 PM [facility] REPOSITORY TYPE CODE TESTS RESULT OUT OF REFERENCE UNITS RANGE LAB CHOL <200 mg/dL Cholesterol High 205 Result Comment: <200 mg/dL, Desirable 200-239 mg/dL, Borderline high >239 mg/dL, High LAB TRIGLY <150 mg/dL Triglyceride High 187 Result Comment: <150 mg/dL, Normal 150-199 mg/dL, Borderline high 200-499 mg/dL, High >499 mg/dL, Very high LAB HDL >39 mg/dL HDL-Cholesterol 53 Result Comment: 40-59 mg/dL, Acceptable >59 mg/dL, High: Negative risk factor for coronary heart disease <40 mg/dL, Low: Positive risk factor for coronary heart disease LAB LDL <100 mg/dL LDL-Cholesterol High 115 Result Comment: <100 mg/dL, Optimal 100-129 mg/dL, Near optimal/above optimal 130-159 mg/dL, Borderline high 160-189 mg/dL, High >189 mg/dL, Very high Secondary prevention optimal LDL Cholesterol levels are recommended to be < 70 mg/dL LAB NONHDL <130 mg/dL Non HDL High Cholesterol 152 Result Comment: <130 mg/dL, Optimal 130-159 mg/dL, Near optimal/above optimal 160-189 mg/dL, Borderline high 190-219 mg/dL, High >219 mg/dL, Very high Secondary prevention optimal non HDL Cholesterol levels are recommended to be < 100 mg/dL LAB FT hrs Fasting Time 22 LAB VLDL <30 mg/dL High VLDL Cholesterol 37 LAB TCHDL <5.10 TC:HDL Ratio 3.87 LAB LDLHDL <2.54 LDL:HDL Ratio 2.17 Result Comment: Reference: 1. National Cholesterol Education Program ATP III Guideline At-A-Glance Quick Desk Reference: National Heart, Lung, and Blood [place]. National Institutes of Health. 2001: NIH Publication No. 01-3305. 2. An International Atherosclerosis Society position paper: global recommendations for the management of dyslipidemia: executive summary, Atherosclerosis. 2014: 232(2):410-413. Performed By: #### BMP, LIPB, HBA1C #### [facility] [address] [place], [place] [address] HEMOGLOBIN A1C Collected: 09/28/2017 Status: F Source: [place] 2:27 PM [facility] REPOSITORY TYPE CODE TESTS RESULT OUT OF REFERENCE UNITS RANGE LAB HGBA1C 4.3-5.6 % High Hemoglobin A1c 5.9 LAB HBA0 mg/dL Est. Average Glucose 123 Result Comment: eAG: (Estimated average glucose) is a calculated value from HgbA1c and is metals sales representative of the average blood glucose level in the last 2-3 month period. Performed By: #### BMP, LIPB, HBA1C #### [facility] [place] [address], [place] [address] PROGRESS Observed: 09/28/2017 Status: COMPLETED Source: [place] 1:42 PM [facility] REPOSITORY HNO ID: [id number] Author: Delta Sierra Service: (none) Author Type: Physician Type: Progress Notes Filed: 10/08/2017 12:11 AM Note Text: Patient presents with: Recheck SUBJECTIVE: Ina Varma is a 77 year old year old lady here today for 6 month follow up appointment for review of medical conditions. Increase urinary issues the past 3 to 4 months. Nocturia 3 times a night. Sweating at night--has to change sheets. Urinary frequency more than usual. No incontinence. Sometimes feels like cannot empty bladder but not often. Blood pressure controlled without adverse effects from medications. No signs of COPD exacerbation. Stable from MS standpoint. Depression remains in remission. PAST MEDICAL HISTORY Diagnosis Date - Benign neoplasm of colon - COPD (chronic obstructive pulmonary disease) (HCC) presumed based on smoking history - HTN (hypertension) - Migraine 12/06/2011 diagnosed at [facility] by Dr. Silver - Multiple sclerosis (HCC) 1984 - COLLIN on CPAP Current Outpatient Prescriptions: CPAP CPAP supplies: Mask (per patient preference), head gear, optional chin strap (if indicated) , filters, tubing, humidifier and lifetime supplies. (G47.33, Z99.89) COLLIN on CPAP albuterol HFA (VENTOLIN HFA) 90 mcg/actuation inhaler Inhale 2 Puffs as instructed every 4 hours as needed for Wheezing/Shortness of Breath. PARoxetine (PAXIL) 40 mg tablet Take 1 tablet by mouth once daily. topiramate (TOPAMAX) 25 mg tablet Take 1 tablet by mouth twice daily. as directed losartan (COZAAR) 100 mg tablet Take 1 tablet by mouth once daily. hydrOXYzine HCl (ATARAX) 25 mg tablet TAKE 1 TABLET BY MOUTH TWICE DAILY NEEDED FOR ANXIETY atorvastatin (LIPITOR) 40 mg tablet Take 1 tablet by mouth once daily. No current facility-administered medications for this visit. OBJECTIVE: BP 118/80 Pulse 74 Resp 18 Wt 75.3 kg (166 lb) BMI 30.86 kg/m2 Patient is alert, oriented times 3, no apparent distress, affect is bright, reactive. Last 5 Encounter BP Readings: Date: BP: 09/28/2017 118/80 03/23/2017 122/72 10/20/2016 138/86 09/19/2016 114/86 03/14/2016 122/70 Last 5 Encounter Wt Readings: Date: Wt: 09/28/2017 75.3 kg (166 lb) 03/23/2017 73.5 kg (162 lb) 10/20/2016 75.8 kg (167 lb) 09/19/2016 75.3 kg (166 lb) 03/14/2016 75.3 kg (166 lb) Heart: Regular rate, rhythm, no murmurs, gallops, rubs. Lungs: Clear to auscultation, bilaterally, breathing non labored. Ext: No cyanosis, clubbing, or edema. ASSESSMENT AND PLAN: Encounter Diagnosis ICD-10-CM 1. Urinary frequency R35.0 URINALYSIS WITH MICROSCOPIC URINE CULTURE 2. Bladder irritability N32.89 oxybutynin (DITROPAN) 5 mg tablet 3. Mixed hyperlipidemia E78.2 atorvastatin (LIPITOR) 40 mg tablet 4. Night sweat R61 5. Multiple sclerosis (HCC) G35 6. Recurrent major depressive disorder, in full remission (HCC) F33.42 Above issues addressed with patient. Patient involved in shared decision making for management of her medical issues. History and medications reviewed. Epic updated as needed Refills taken care of and meds adjusted as indicated after reviewed history, exam and labs. Health Maintenance reviewed. Updated record and/or ordered tests as recorded. Encouraged on efforts at healthy diet and regular exercise and adequate sleep. Overall, doing fairly well. Rule out UTI and treat accordingly. Wonder if night sweats from possible bladder infection rather than postmenopausal (though states has not had night sweats before from being postmenopausal). Treating for bladder irritability. Further evaluation and treatment as indicated. The majority of the visit was spent counseling and/or coordinating care for the patient. Xtjy-om-ncmn time was at least 25 minutes. Delta Sierra MD CNOV Observed: 09/28/2017 Status: COMPLETED Source: [place] 1:00 PM [facility] REPOSITORY Office Visit (INTMWS) JOBYMIMIINA A ([id number]) 1940 F Date Time Provider Department 09/28/17 1:00 PM DELTA SIERRA INTMWS During your visit today, we recorded the following information about you: Pulse Respiration Blood pressure Weight 74/minute 18/minute 118/80 75.3 kg Delta Sierra MD 10/08/2017 12:11 AM Signed Patient presents with: Recheck SUBJECTIVE: Inaalexander Varma is a 77 year old year old lady here today for 6 month follow up appointment for review of medical conditions. Increase urinary issues the past 3 to 4 months. Nocturia 3 times a night. Sweating at night--has to change sheets. Urinary frequency more than usual. No incontinence. Sometimes feels like cannot empty bladder but not often. Blood pressure controlled without adverse effects from medications. No signs of COPD exacerbation. Stable from MS standpoint. Depression remains in remission. PAST MEDICAL HISTORY Diagnosis Date - Benign neoplasm of colon - COPD (chronic obstructive pulmonary disease) (HCC) presumed based on smoking history - HTN (hypertension) - Migraine 12/06/2011 diagnosed at [facility] by Dr. Silver - Multiple sclerosis (HCC) 1984 - COLLIN on CPAP Current Outpatient Prescriptions: CPAP CPAP supplies: Mask (per patient preference), head gear, optional chin strap (if indicated) , filters, tubing, humidifier and lifetime supplies. (G47.33, Z99.89) COLLIN on CPAP albuterol HFA (VENTOLIN HFA) 90 mcg/actuation inhaler Inhale 2 Puffs as instructed every 4 hours as needed for Wheezing/Shortness of Breath. PARoxetine (PAXIL) 40 mg tablet Take 1 tablet by mouth once daily. topiramate (TOPAMAX) 25 mg tablet Take 1 tablet by mouth twice daily. as directed losartan (COZAAR) 100 mg tablet Take 1 tablet by mouth once daily. hydrOXYzine HCl (ATARAX) 25 mg tablet TAKE 1 TABLET BY MOUTH TWICE DAILY NEEDED FOR ANXIETY atorvastatin (LIPITOR) 40 mg tablet Take 1 tablet by mouth once daily. No current facility-administered medications for this visit. OBJECTIVE: BP 118/80 Pulse 74 Resp 18 Wt 75.3 kg (166 lb) BMI 30.86 kg/m2 Patient is alert, oriented times 3, no apparent distress, affect is bright, reactive. Last 5 Encounter BP Readings: Date: BP: 09/28/2017 118/80 03/23/2017 122/72 10/20/2016 138/86 09/19/2016 114/86 03/14/2016 122/70 Last 5 Encounter Wt Readings: Date: Wt: 09/28/2017 75.3 kg (166 lb) 03/23/2017 73.5 kg (162 lb) 10/20/2016 75.8 kg (167 lb) 09/19/2016 75.3 kg (166 lb) 03/14/2016 75.3 kg (166 lb) Heart: Regular rate, rhythm, no murmurs, gallops, rubs. Lungs: Clear to auscultation, bilaterally, breathing non labored. Ext: No cyanosis, clubbing, or edema. ASSESSMENT AND PLAN: Encounter Diagnosis ICD-10-CM 1. Urinary frequency R35.0 URINALYSIS WITH MICROSCOPIC URINE CULTURE 2. Bladder irritability N32.89 oxybutynin (DITROPAN) 5 mg tablet 3. Mixed hyperlipidemia E78.2 atorvastatin (LIPITOR) 40 mg tablet 4. Night sweat R61 5. Multiple sclerosis (HCC) G35 6. Recurrent major depressive disorder, in full remission (HCC) F33.42 Above issues addressed with patient. Patient involved in shared decision making for management of her medical issues. History and medications reviewed. Epic updated as needed Refills taken care of and meds adjusted as indicated after reviewed history, exam and labs. Health Maintenance reviewed. Updated record and/or ordered tests as recorded. Encouraged on efforts at healthy diet and regular exercise and adequate sleep. Overall, doing fairly well. Rule out UTI and treat accordingly. Wonder if night sweats from possible bladder infection rather than postmenopausal (though states has not had night sweats before from being postmenopausal). Treating for bladder irritability. Further evaluation and treatment as indicated. The majority of the visit was spent counseling and/or coordinating care for the patient. Uojd-jk-qyqc time was at least 25 minutes. Delta Sierra MD Referring Provider: DELTA SIERRA [[id number]] Allergies As of Date: 09/28/2017 Noted Allergy Reaction LISINOPRIL 10/28/2009 3 - Cough Date Reviewed: 09/28/2017 Reviewed by: Kylee Merritt Manager Home Improvement - Fully Assessed Reason for Visit: Recheck [92] Primary Visit Diagnosis:Urinary frequency [R35.0] Other Visit Diagnoses:Bladder irritability [N32.89] Mixed hyperlipidemia [E78.2] Night sweat [R61] Multiple sclerosis (HCC) [G35] Recurrent major depressive disorder, in full remission (HCC) [F33.42] Order(s):atorvastatin (LIPITOR) 40 mg tabletTake 1 tablet by mouth once daily.Disp: 90 tabletRfl: 3 URINALYSIS WITH MICROSCOPIC [SQUAWMIC] Order #: [id number]. #:[id number] URINE CULTURE [SQURCUL] Order #: [id number]. #:[id number] oxybutynin (DITROPAN) 5 mg tabletTake 1 tablet by mouth twice daily.Disp: 180 tabletRfl: 3 ciprofloxacin HCl (CIPRO) 500 mg tabletTake 1 tablet by mouth twice daily for 14 days. As directedDisp: 28 tabletRfl: 0 Prescriptions as of 09/28/2017 Sig: ATORVASTATIN 40 MG TABLET Take 1 tablet by mouth once d* OXYBUTYNIN CHLORIDE 5 MG TABL* Take 1 tablet by mouth twice * CIPROFLOXACIN 500 MG TABLET Take 1 tablet by mouth twice * CPAP CPAP supplies: Mask (per pat* ALBUTEROL SULFATE HFA 90 MCG/* Inhale 2 Puffs as instructed * PAROXETINE 40 MG TABLET Take 1 tablet by mouth once d* TOPIRAMATE 25 MG TABLET Take 1 tablet by mouth twice * LOSARTAN 100 MG TABLET Take 1 tablet by mouth once d* HYDROXYZINE HCL 25 MG TABLET TAKE 1 TABLET BY MOUTH TWICE * Problem List As Of Date 09/28/2017 Noted Resolved MULTIPLE SCLEROSIS [G35] INVALID FOR* Recurrent major depressive disorder, in full re*INVALID FOR* Mixed hyperlipidemia [E78.2] INVALID FOR* Other malaise and fatigue [R53.81, R53.83] INVALID FOR* Anxiety state [F41.1] INVALID FOR* Headache [R51] INVALID FOR* MITRAL VALVE PROLAPSE [I05.9] INVALID FOR* HEARING LOSS NOS [H91.90] INVALID FOR* Sinusitis, chronic [J32.9] INVALID FOR* DEVIATED NASAL SEPTUM [J34.2] INVALID FOR* UNDIAGNOSED CARDIAC MURMURS [R01.1] INVALID FOR* Hypertension [I10] INVALID FOR* Otitis media, chronic serous [H65.20] INVALID FOR*03/14/2016 Other and unspecified chronic nonsuppurative ot*INVALID FOR*03/14/2016 Migraine [G43.909] INVALID FOR* More... Osteopenia [M85.80] INVALID FOR* More... IFG (impaired fasting glucose) [R73.01] INVALID FOR* COLLIN on CPAP [G47.33, Z99.89] Prescriptions ordered this encounter Disp Refills Start End ATORVASTATIN 40 MG TABLET 90 t* 3 09/28/2017 Route: ORAL Sig: Take 1 tablet by mouth once daily. OXYBUTYNIN CHLORIDE 5 MG TABLET 180 * 3 09/28/2017 Route: ORAL Sig: Take 1 tablet by mouth twice daily. CIPROFLOXACIN 500 MG TABLET 28 t* 0 09/28/2017 10/12/2017 Route: ORAL Sig: Take 1 tablet by mouth twice daily for 14 days. As directed Medications Discontinued During This Encounter atorvastatin (LIPITOR) 40 mg tablet 90 t* 3 09/19/2016 09/28/2017 Route: ORAL Sig: Take 1 tablet by mouth once daily. Disc: Reason for discontinue is not on file. ciprofloxacin HCl (CIPRO) 500 mg tab* 20 t* 0 08/28/2017 09/28/2017 Route: ORAL Sig: Take 1 tablet by mouth twice daily for 10 days. Disc: Reason for discontinue is not on file. Disposition: Return in about 6 months (around 03/30/2018) for 6 months follow up. Follow-up and Disposition History Recorded Encounter Status:Closed by DELTA SIERRA MD on 10/08/17 CNPTOUTREACH Observed: 09/11/2017 Status: COMPLETED Source: [place] 12:00 AM [facility] REPOSITORY Patient Outreach (FAMPST) INA VARMA ([id number]) 1940 F Date Time Provider Department 09/11/17 [facility] During your visit today, we recorded the following information about you: Allergies As of Date: 09/11/2017 Noted Allergy Reaction LISINOPRIL 10/28/2009 3 - Cough Date Reviewed: 03/23/2017 Reviewed by: Kylee Merritt Manager Home Improvement - Fully Assessed Visit Diagnosis:Medication management [Z79.899] Order(s):BASIC METABOLIC PNL [SQBMP] Order #: [id number] FUTURE HGB A1C [PONCM5P] Order #: [id number] FUTURE LIPID PANEL BASIC [SQLIPB] Order #: [id number] FUTURE Prescriptions as of 09/11/2017 Sig: CPAP CPAP supplies: Mask (per pat* ALBUTEROL SULFATE HFA 90 MCG/* Inhale 2 Puffs as instructed * X PAROXETINE 40 MG TABLET Take 1 tablet by mouth once d* X TOPIRAMATE 25 MG TABLET Take 1 tablet by mouth twice * X LOSARTAN 100 MG TABLET Take 1 tablet by mouth once d* X HYDROXYZINE HCL 25 MG TABLET TAKE 1 TABLET BY MOUTH TWICE * X ATORVASTATIN 40 MG TABLET Take 1 tablet by mouth once d* Problem List As Of Date 09/11/2017 Noted Resolved MULTIPLE SCLEROSIS [G35] INVALID FOR* Recurrent major depressive disorder, in full re*INVALID FOR* Mixed hyperlipidemia [E78.2] INVALID FOR* Other malaise and fatigue [R53.81, R53.83] INVALID FOR* Anxiety state [F41.1] INVALID FOR* Headache [R51] INVALID FOR* MITRAL VALVE PROLAPSE [I05.9] INVALID FOR* HEARING LOSS NOS [H91.90] INVALID FOR* Sinusitis, chronic [J32.9] INVALID FOR* DEVIATED NASAL SEPTUM [J34.2] INVALID FOR* UNDIAGNOSED CARDIAC MURMURS [R01.1] INVALID FOR* Hypertension [I10] INVALID FOR* Otitis media, chronic serous [H65.20] INVALID FOR*03/14/2016 Other and unspecified chronic nonsuppurative ot*INVALID FOR*03/14/2016 Migraine [G43.909] INVALID FOR* More... Osteopenia [M85.80] INVALID FOR* More... IFG (impaired fasting glucose) [R73.01] INVALID FOR* COLLIN on CPAP [G47.33, Z99.89] Encounter Status:Closed by [facility], PRODUSER on 03/22/18 URINALYSIS WITH Collected: 08/28/2017 Status: F Source: [facility] 2:08 PM [facility] REPOSITORY TYPE CODE TESTS RESULT OUT OF RANGE REFERENCE UNITS LAB UCOL Yellow Color Abnormal Katherine Alert LAB [facility] Clear Clarity Clear LAB UGLUC Negative mg/dL Glucose, Urine Negative LAB UBIL Negative Bilirubin, Urine Negative LAB UKET Negative Ketones, Urine Negative LAB USPG 1.005-1.030 Specific Wy[place], Ur 1.024 LAB UHGB Negative Hemoglobin/Blood, Negative Ur LAB UPH 4.5-8.0 pH 5.0 LAB UPROT Negative mg/dL Protein, Abnormal Urine 30 Alert LAB UUROB Normal Abnormal Urobilinogen Elevated Alert LAB UNITR Negative Nitrites Abnormal Positive Alert LAB ULKEST Negative Leukest Abnormal 2+ Alert LAB UCOM Comments SEE COMMENT Result Comment: N/A LAB UMCOM Urine SEE Jeremias Comment COMMENT Result Comment: N/A LAB UWBC 0-5 /HPF Abnormal WBC Alert >25 LAB URBC 0-3 /HPF RBC 0-3 LAB UEPI /HPF Epithelial Cells SEE COMMENT Result Comment: Few Squamous Epithelial Cells Performed By: #### UAWMIC #### [facility] [address] [place], [place] [address] Observed: 08/28/2017 Status: F Source: [place] URINE CULTURE 2:08 PM [facility] REPOSITORY Sp. Request/Comment: - Specimen received in preservative Culture Result - 10,000 - <50,000 CFU/ml Lactose positive gram negative bacilli --> ABNORMAL ALERT Insignificant colony count. No further workup. --> ABNORMAL ALERT 10,000 - <50,000 CFU/ml Normal urogenital miranda Performed By: #### URCUL #### [facility] [address] [place] [address] ALLERGIES ALLERGIES DATE TYPE / CODE NAME / CODE REACTION SEVERITY SOURCE 06/29/2018 Drug No Known Unknown [place] Allergy/416 Allergies/[id number] Community 884841([facility] 388(RXNORM) [facility] ED CT) Repository 10/28/2009 DRUG LISINOPRIL COUGH Low [facility] INGREDI/419 [facility] 694960(SNOM Repository ED CT) ENCOUNTERS ENCOUNTERS ADMIT/DISCHARGE ACCOUNT ADMITTING ENCOUNTER LOCATION SOURCE NUMBER CLASS 06/29/2018/07/03/19 [id number] Sementi, Inpatient Samy French Encounter [facility] ing:PCURoom: Repository ECM396Lcf: 1 06/29/2018 [id number] Sementi, Ambulatory BMSBuilding:Morris French [facility] Repository 06/29/2018 [id number] Sementi, Ambulatory BMSBuilding:Morris French [facility] Repository 06/29/2018 [id number] Sementi, Ambulatory BMSBuilding:Morris French [facility] Repository 06/29/2018 [id number] Sementi, Ambulatory BMSBuilding:Morris French [facility] Repository 06/29/2018 [id number] Sementi, Ambulatory BMSBuilding:Morris French [facility] Repository 03/29/2018/03/29/20 [id number] Ambulatory [address] Repository 03/29/2018/04/03/20 [id number] Ambulatory [address] Repository 10/23/2017/10/24/19 [id number] Ambulatory [address] Repository 09/28/2017/09/29/19 [id number] Ambulatory [address] Repository 09/28/2017/10/10/19 [id number] Ambulatory [address] Repository 08/28/2017 [id number] Ambulatory [facility] Repository PAYERS PAYERS ENCOUNTER GUARANTOR PAYER SUBSCRIBER SOURCE 06/29/2018 INA A Primary INA A Samy [id number] W Insurance:HUMANA MCR BERKESDOB: Community [employer] HMO IN [facility] [id number] 04/[place]18Policy Number: Repository [id number]: 330 [id number] [phone] () Date:0272-88-04SE [address] [address]UP: 06/29/2018 Secondary NOT GIVENUNK Samy Insurance:SELF PAY [facility] Number: Effective Repository Date:2018-06-29 06/29/2018 INA A Primary INA A Samy [id number] W Insurance:HUMANA BERKESDOB: [facility] L[employer]ENZ MEDICARE [place] [id number] Number: Repository [id number]: 330 [id number] [phone] () Date:3817-12-36BM [address] [address]PI: 06/29/2018 Secondary NOT GIVENUNK Samy Insurance:SELF PAY [facility] Number: Effective Repository Date:2018-06-29 06/29/2018 INA A Primary INA A Samy [id number] W Insurance:HUMANA BERKESDOB: [facility] LORENZ MEDICARE [facility] [id number] Number: Repository [id number]: 330 [id number] [phone] () Date:[id number] [address] [address]MM: 06/29/2018 Secondary NOT GIVENUNK Samy Insurance:SELF PAY [facility] Number: Effective Repository Date:2018-06-29 06/29/2018 INA A Primary INA A Samy [id number] W Insurance:HUMANA MCR BERKESDOB: [facility] LORENZ HMO IN [facility] [id number] 04/[place]/18Policy Number: Repository [id number]: (330 [id number] [phone] () Date:3585-58-44WP [address] [address]ZF: 06/29/2018 Secondary NOT GIVENUNK [place] Insurance:SELF PAY [facility] Number: Effective Repository Date:2018-06-29 06/29/2018 INA A Primary INA A Samy [id number] W Insurance:HUMANA [facility] BERKESDOB: [facility] HMO IN [facility] [id number], [place] 04/11/18Policy Number: Repository [id number]: 330 [id number] [phone] (HP) Date:[id number] [address] [place] [address]XB: 06/29/2018 Secondary NOT GIVENUNK [place] Insurance:SELF PAY [facility] Number: Effective Repository Date:2018-06-29 06/29/2018 INA A Primary INA A [place] [id number] W Insurance:HUMANA [facility] BERKESDOB[facility] [id number] 04/11/18Policy Number: Repository [id number]: 330 [id number] [phone] () Date:6823-75-40LL [address] [place] [address]VA: 06/29/2018 Secondary NOT GIVENUNK [place] Insurance:SELF PAY [facility] Hospital Number: Effective Repository Date:2018-06-29
== END 2018-07-03 17:21 | DRG 690 ==
LOC: ED 16:45 → MS3 17:25 → PCU 18:10
PROVIDERS: Nurse Practitioner Family; Admitting Provider Internal Medicine; Emergency Provider Emergency Medicine; Family Provider Internal Medicine; PCP Internal Medicine; Referring Provider Internal Medicine; Visit Provider Internal Medicine
DX: N39.0 Urinary tract infection, site not specified (principal); G35 Multiple sclerosis; R27.0 Ataxia, unspecified; H53.2 Diplopia; G40.909 Epilepsy, unspecified, not intractable, without status epilepticus; G43.909 Migraine, unspecified, not intractable, without status migrainosus; B96.20 Unspecified Escherichia coli [E. coli] as the cause of diseases classified elsewhere; J44.9 Chronic obstructive pulmonary disease, unspecified; G47.33 Obstructive sleep apnea (adult) (pediatric); I10 Essential (primary) hypertension; E78.5 Hyperlipidemia, unspecified; R29.6 Repeated falls; F32.9 Major depressive disorder, single episode, unspecified; N32.81 Overactive bladder; Z87.891 Personal history of nicotine dependence
CPT/HCPCS: 36415; 70450; 70544; 70547; 70551; 71045; 80048; 80053; 80061; 80307; 81001; 82962; 83735; 84100; 84443; 84484; 85025; 87086; 87088; 87186; 93005; 93306; 97162; 97166; 97530; 97802; 97803; 99285; J7030; P9612; A4216; J3030